=== PATIENT | female | born 1965 | race Caucasian/White ===

== ENCOUNTER 2022-06-20 14:35 | Outpatient (REF) | payer SELFPAY ==
[2022-06-20 14:52] LABS: MANUAL DIFF FLAG NO
[2022-06-20 15:35] LABS: Basophils Absolute Auto 0.1 X10*3/uL (0.0-0.2); Basophils Percent Auto 0.7 % (0-2); Eosinophils Absolute Auto 0.2 X10*3/uL (0.0-0.4); Eosinophils Percent Auto 1.7 % (0-4); Hematocrit 41.8 % (37.0-47.0); Hemoglobin 13.2 g/dl (12.0-16.0); Imm Gran Abs Auto 0.03 X10*3/uL (0.00-0.03); Imm Gran Pct Auto 0.2 % (0.0-0.4); Lymphocytes Absolute Auto 1.7 X10*3/uL (1.2-4.9); Lymphocytes Percent Auto 14.4 % (20-40); Mean Corpuscular HGB Conc 31.6 g/dl (31.0-35.0); Mean Corpuscular Hemoglobin 27.4 pg (27.0-33.0); Mean Corpuscular Volume 86.7 fL (80.0-98.0); Mean Platelet Volume 10.6 fL (9.4-12.3); Monocytes Absolute Auto 1.2 X10*3/uL (0.1-1.2); Neutrophils Absolute Auto 8.8 x10*3/uL (2.0-8.3); Platelet Count 305 X10*3/uL (160-400); Red Blood Count 4.82 X10*6/uL (4.20-5.50); Red Cell Distribution Width 13.2 % (11.0-16.0); White Blood Count 12.1 X10*3/uL (4.8-10.8)
[2022-06-20 15:50] LABS: Alanine Aminotransferase 21 U/L (0-31); Albumin Level 4.3 g/dL (3.5-5.0); Alkaline Phosphatase 108 U/L (39-117); Anion Gap 15 (12-20); Aspartate Amino Transferase 14 U/L (5-31); Bilirubin Total 0.7 mg/dL (0.0-1.0); Blood Urea Nitrogen 16 mg/dL (9-16); Calcium 9.4 mg/dL (8.4-10.2); Carbon Dioxide 27 mmol/L (22-29); Chloride 104 mmol/L (96-108); Cholesterol 154 mg/dL; Estimated Glomerular Filt Rate > 60; Glucose Random 142 mg/dL (60-115); HDL Cholesterol 52 mg/dL; LDL Cholesterol Calculated 87 mg/dl; Potassium 4.7 mmol/L (3.3-5.1); Sodium 141 mmol/L (135-145); Total Protein 7.5 g/dL (6.5-8.0); Triglycerides 79 mg/dL
[2022-06-20 16:12] LABS: Thyroid Stimulating Hormone 3.75 uIU/mL (0.32-4.0)
== END 2022-06-20 14:36 | disposition home or self-care (01) ==
LOC: HO.LAB 14:35
PROVIDERS: PCP Internal Medicine; Visit Provider Internal Medicine
DX: E66.01 Morbid (severe) obesity due to excess calories (principal); I10 Essential (primary) hypertension; L03.119 Cellulitis of unspecified part of limb; R60.0 Localized edema
CPT/HCPCS: 36415; 80053; 80061; 84443; 85025

== ENCOUNTER 2022-06-28 11:14 | Outpatient (REF) | payer MEDICAID, SELFPAY ==
--- NOTE | ~2022-06-28 | US_ITS ---
EXAMINATION: US VENOUS ULTRASOUND WITH DOPPLER LOWER EXTREMITY, RIGHT CLINICAL INFORMATION: Right leg pain. COMPARISON: None TECHNIQUE: Ultrasound of the deep veins is performed from the hip to the calf with compression sonography and color and pulse Doppler assessment. Spectral analysis with color-flow imaging is performed. FINDINGS: There is normal venous compression and respiratory variation and augmented flow. The visualized common femoral vein, superficial femoral vein, profunda femoral vein, popliteal vein, and the trifurcation region shows no evidence of deep venous thrombosis. There is no significant popliteal fossa cyst. Small prominent lymph nodes seen in the right groin. If the patient's symptoms persist, followup ultrasound in 5 days 7 days might be of value to exclude proximal propagation from a non-visualized calf vein. US/US venous duplex LE RT IMPRESSION: No DVT demonstrated in the right lower extremity. Small lymph nodes visualized in the right groin.
== END 2022-06-28 11:15 | disposition home or self-care (01) ==
LOC: HO.US 11:14
PROVIDERS: Visit Provider Internal Medicine
DX: R22.31 Localized swelling, mass and lump, right upper limb (principal)
CPT/HCPCS: 93971

== ENCOUNTER 2022-07-29 20:33 | Inpatient (IN) | payer OTHER, MEDICAID, SELFPAY ==
--- NOTE | ~2022-07-29 | US_ITS ---
EXAMINATION: US VENOUS ULTRASOUND WITH DOPPLER LOWER EXTREMITY, BILATERAL CLINICAL INFORMATION: Swelling and pain COMPARISON: Previous right leg venous ultrasound June 2022 TECHNIQUE: Ultrasound of the deep veins is performed from the hip to the calf with compression sonography and color and pulse Doppler assessment. Spectral analysis with color-flow imaging is performed. FINDINGS: RIGHT: There is normal venous compression and respiratory variation and augmented flow. The visualized common femoral vein, superficial femoral vein, profunda femoral vein, popliteal vein, and the posterior tibial region shows no evidence of deep venous thrombosis. The right peroneal veins are not well visualized. There is edema in the right lower leg/calf. There is a 4.6 x 2.4 x 3.1 cm العراقي's cyst. LEFT: There is normal venous compression and respiratory variation and augmented flow. The visualized common femoral vein, superficial femoral vein, profunda femoral vein, popliteal vein, and the trifurcation region shows no evidence of deep venous thrombosis. There is no significant popliteal fossa cyst. There is shotty bilateral inguinal lymphadenopathy.. US/US venous duplex LE BI IMPRESSION: No DVT demonstrated in the bilateral lower extremity. Right peroneal veins not well visualized. Small right العراقي's cyst. Right lower leg edema.
[2022-07-29 22:59] VITALS: BP 149/91; PULSE 113; RESP 20; TEMP 37.6; O2SAT 98; BMI 45.4
--- NOTE | 2022-07-30 01:04 | ED.GENADULT ---
HPI - General Adult General Chief complaint: General Medical Stated complaint: right leg swollen regina,burning ? clot Time Seen by Provider: 07/29/22 23:49 Mode of arrival: ambulatory Limitations: no limitations History of Present Illness HPI narrative: Patient's history of lymphedema history of recurrent cellulitis in her right lower extremity been on doxycycline Augmentin since 06/27 had a small wound few days ago got better but for last 24 hour noticed increased redness and pain with chills Onset (ago): month(s) Related Data Allergies Allergy/AdvReac Type Severity Reaction Status Date / Time No Known Allergies Allergy Verified 07/29/22 23:02 Review of Systems Review of Systems: Yes all other systems are reviewed and are negative [facility] Social History Social History Advance Directives: No Physical Exam ED Vital Signs: Vital Signs - 24 hr 07/29/22 22:59 Temperature 99.6 F Pulse Rate 113 H Respiratory Rate 20 Blood Pressure 149/91 H Pulse Oximetry 98 Oxygen Delivery Method Room Air BMI result Body Mass Index 45.4 Appearance: Alert. Oriented X3. No acute distress. Eyes: PERRLA, No Nystagmus ENT: Pharynx normal. Oral Mucosa moist Neck: Normal inspection. Neck supple. CVS: Normal heart rate and rhythm. Pulses normal. Respiratory: No respiratory distress. Equal air entry bilateral, no wheezing/rales/rhonchi Abdomen: Soft and nontender. Bowel sounds are present, no mass palpable, no CVA tenderness Skin: Skin warm and dry. Normal skin color. Normal skin turgor. Extremities: Right lower extremity swollen erythematous warm Vira sign negative. No calf tenderness Neuro: Oriented X 3. No motor deficit. No sensory deficit.No cerebellar signs , cranial nerves II-XII intact Extrem Other: Medical Decision Making MDM Narrative Medical decision making narrative: Patient recurrent cellulitis failed outpatient antibiotic treatment will admit patient for IV antibiotics vancomycin and Zosyn for now Lab Data Lab results reviewed: Yes I reviewed the patient's lab results. Result diagrams: 07/30/22 01:23 07/30/22 01:23 Labs: Lab Results 07/30/22 07/30/22 07/30/22 Range/Units 01:23 01:23 01:23 WBC 13.0 H (4.8-10.8) X10*3/uL RBC 5.02 (4.20-5.50) X10*6/uL Hgb 14.3 (12.0-16.0) g/dl Hct 43.1 (37.0-47.0) % MCV 85.9 (80.0-98.0) fL MCH 28.5 (27.0-33.0) pg MCHC 33.2 (31.0-35.0) g/dl RDW 13.5 (11.0-16.0) % Plt Count 249 (160-400) X10*3/uL MPV 10.7 (9.4-12.3) fL Immature Gran % (Auto) 0.4 (0.0-0.4) % Neut % (Auto) 86.7 H (45-73) % Lymph % (Auto) 6.7 L (20-40) % [place] % (Auto) 5.0 (2-11) % Eos % (Auto) 0.8 (0-4) % Baso % (Auto) 0.4 (0-2) % Lymph # (Auto) 0.9 L (1.2-4.9) X10*3/uL [place] # (Auto) 0.7 (0.1-1.2) X10*3/uL Eos # (Auto) 0.1 (0.0-0.4) X10*3/uL Baso # (Auto) 0.1 (0.0-0.2) X10*3/uL Abs Immat Gran (auto) 0.05 H (0.00-0.03) X10*3/uL Absolute Neuts (auto) 11.3 H (2.0-8.3) x10*3/uL Absolute Nucleated RBC 0.000 (0.0-0.012) X10*3/uL Nucleated RBC % (auto) 0.0 (0.0-0.2) /100WBC Sodium 136 (135-145) mmol/L Potassium 3.8 (3.3-5.1) mmol/L Chloride 97 (96-108) mmol/L Carbon Dioxide 27 (22-29) mmol/L Anion Gap 16 (12-20) BUN 26 H D (9-16) mg/dL Creatinine 1.23 (0.5-1.4) mg/dL Estim Creat Clear Calc 72.2 Estimated GFR 45 Random Glucose 266 H (60-115) mg/dL Lactic Acid 2.0 (0.5-2.0) mmol/L Calcium 9.2 (8.4-10.2) mg/dL Total Bilirubin 0.8 (0.0-1.0) mg/dL AST 17 (5-31) U/L ALT 24 (0-31) U/L Alkaline Phosphatase 106 (39-117) U/L Total Protein 7.4 (6.5-8.0) g/dL Albumin 4.3 (3.5-5.0) g/dL Discharge Plan Discharge Clinical Impression: Cellulitis of leg, right Patient Disposition: Admitted As Inpatient
[2022-07-30 01:28] LABS: MANUAL DIFF FLAG NO
[2022-07-30] MEDS: Acetaminophen 325 MG TABLET 975 MG PO (01:28)
[2022-07-30] MEDS: Piperacillin Sodium/Tazobactam 4.5 GM in 0.9 % Sodium Chloride 100 ML IV (01:29)
[2022-07-30] MEDS: Ketorolac Tromethamine 30 MG/ML VIAL IVPUSH (01:29)
[2022-07-30 01:32] LABS: Basophils Absolute Auto 0.1 X10*3/uL (0.0-0.2); Basophils Percent Auto 0.4 % (0-2); Eosinophils Absolute Auto 0.1 X10*3/uL (0.0-0.4); Eosinophils Percent Auto 0.8 % (0-4); Hematocrit 43.1 % (37.0-47.0); Hemoglobin 14.3 g/dl (12.0-16.0); Imm Gran Abs Auto 0.05 X10*3/uL (0.00-0.03); Imm Gran Pct Auto 0.4 % (0.0-0.4); Lymphocytes Absolute Auto 0.9 X10*3/uL (1.2-4.9); Lymphocytes Percent Auto 6.7 % (20-40); Mean Corpuscular HGB Conc 33.2 g/dl (31.0-35.0); Mean Corpuscular Hemoglobin 28.5 pg (27.0-33.0); Mean Corpuscular Volume 85.9 fL (80.0-98.0); Mean Platelet Volume 10.7 fL (9.4-12.3); Monocytes Absolute Auto 0.7 X10*3/uL (0.1-1.2); Neutrophils Absolute Auto 11.3 x10*3/uL (2.0-8.3); Neutrophils Percent Auto 86.7 % (45-73); Platelet Count 249 X10*3/uL (160-400); Red Blood Count 5.02 X10*6/uL (4.20-5.50); Red Cell Distribution Width 13.5 % (11.0-16.0)
[2022-07-30] MEDS: 0.9 % Sodium Chloride 1,000 ML 999 ML IV ×2 (01:41→05:47)
--- NOTE | 2022-07-30 01:45 | PC.NURSE ---
Assumed care of pt. at 130. Pt's right leg is swollen and red with 2 small healing wounds. Pt c/o severe pain. Medicated per MAR and abx iv therapy initiated. Pt. is resting in bed at this time.
[2022-07-30 01:50] LABS: Alanine Aminotransferase 24 U/L (0-31); Albumin Level 4.3 g/dL (3.5-5.0); Alkaline Phosphatase 106 U/L (39-117); Anion Gap 16 (12-20); Aspartate Amino Transferase 17 U/L (5-31); Bilirubin Total 0.8 mg/dL (0.0-1.0); Blood Urea Nitrogen 26 mg/dL (9-16); Calcium 9.2 mg/dL (8.4-10.2); Carbon Dioxide 27 mmol/L (22-29); Chloride 97 mmol/L (96-108); Creatinine Clr Calc Pharmacy 72.2; Estimated Glomerular Filt Rate 45; Glucose Random 266 mg/dL (60-115); Potassium 3.8 mmol/L (3.3-5.1); Sodium 136 mmol/L (135-145); Total Protein 7.4 g/dL (6.5-8.0)
--- NOTE | 2022-07-30 02:11 | PC.NURSE ---
Put pt on monitor for sepsis protocol
[2022-07-30 02:23] VITALS: BP 120/63; PULSE 108; RESP 28; TEMP 37.4; O2SAT 97
[2022-07-30] MEDS: HYDROmorphone HCl 0.5 MG/0.5 ML SYRINGE IVPUSH ×2 (02:42→05:51)
[2022-07-30 02:58] LABS: COVID-19 Test Negative (Negative)
--- NOTE | 2022-07-30 03:05 | PM.IMHP ---
History of Present Illness Date of Service: 07/30/22 Chief Complaint: right leg pain and swelling 57-year-old female with a past medical history of cellulitis presented to the hospital today with a chief complaint of right leg pain and swelling. Patient reports that for the past 2-3 when she has been having episodes of right leg cellulitis, has been on antibiotics, reports that she has been taking doxycycline and augmenting since June. for past 1 day she noticed increased pain and swelling of her right leg associated chills. Hence decided to come to the ER for further evaluation. Denies any falls or injury. Denies any chest pain or palpitations Denies any shortness of breath or dyspnea on exertion. Denies any cough or sputum production. Review of all other systems is negative except mentioned above ER course: Per ER team patient noted to have right leg warm, erythematous, tender concern for cellulitis- given IV vancomycin and Zosyn. Admitted to the hospital for further management PMFSH Medical History (Updated 08/02/22 @ 14:11 by Artis Rocha MD) Morbid obesity Social History Household Members: None Housing: House Patient Tobacco Use Status: Never used Tobacco service: No Current occupational status: employed Meds Allergies Allergy/AdvReac Type Severity Reaction Status Date / Time No Known Allergies Allergy Verified 07/29/22 23:02 Active Medications: Current Medications Acetaminophen (Acetaminophen 325 Mg Tablet) 650 mg PO Q6H PRN PRN Reason: Pain, Mild (Pain Scale 1-3) Enoxaparin Sodium (Enoxaparin Sodium 40 Mg/0.4 Ml Syringe) 40 mg SUBCUT Q24H REINA Hydromorphone HCl (Hydromorphone Hcl 0.5 Mg/0.5 Ml Syringe) 0.5 mg IVPUSH Q4H PRN; Protocol PRN Reason: Breakthrough Pain Last Admin: 07/30/22 02:42 Dose: 0.5 mg Vancomycin HCl (Vancomycin/Ns) 2,000 mg in 520 mls @ 260 mls/hr IV ONCE ONE Stop: 07/30/22 03:07 Last Admin: 07/30/22 02:51 Dose: 260 mls/hr Piperacillin Sod/Tazobactam (Sod 3.375 gm/ Sodium Chloride) 50 mls @ 100 mls/hr IV Q6H [facility] Melatonin (Melatonin 3 Mg Tablet) 6 mg PO BEDTIME PRN PRN Reason: Insomnia Pharmacy Consult (Consult Rx Vancomycin Dosing) 1 each MISCELLANE DAILY PRN PRN Reason: Consult order Pharmacy Consult (Consult Rx Vancomycin Dosing) 1 each MISCELLANE DAILY PRN PRN Reason: Consult order Senna (Sennosides 8.6 Mg Tablet) 17.2 mg PO BEDTIME PRN PRN Reason: Constipation Sodium Chloride (0.9 % Sodium Chloride Flush 3 Ml Syringe) 3 ml IVFLUSH QSHIFT [facility] Home Medications Medication Instructions Recorded Confirmed Last Taken Type doxycycline hyclate 100 mg tablet 1 tab PO BID 07/30/22 07/30/22 07/29/22 History furosemide 40 mg tablet 1 tab PO DAILY 07/30/22 07/30/22 07/29/22 History terbinafine HCl 1 % topical cream 1 appl topical BID 07/30/22 07/30/22 Unknown History terbinafine HCl 250 mg tablet 1 tab PO DAILY 07/30/22 07/30/22 Unknown History triamcinolone acetonide 0.5 % 1 appl topical BID 07/30/22 07/30/22 Unknown History topical cream Physical Exam Vital Signs and Narrative: Vital Signs: Last Vital Signs Temp 99.4 F 07/30/22 02:23 Pulse 108 H 07/30/22 02:23 Resp 28 H 07/30/22 02:23 BP 120/63 07/30/22 02:23 Pulse Ox 97 07/30/22 02:23 O2 Del Method 07/30/22 02:23 BMI result Body Mass Index 45.4 Gen: Appears be in no acute distress HEENT: NCAT, Moist mucosa. Pulmonary: Vesicular breath sounds, fair air entry CVS: Normal S1-S2 Abdomen: BS+, Soft, Nontender Extremities: Warm well perfused; right leg is warm tender erythematous as shown in the picture above. Neuro: Alert and awake. Results Labs CBC and Chem 7: 07/30/22 04:34 08/07/22 05:31 Labs: Laboratory Results - last 24 hr 07/30/22 07/30/22 07/30/22 01:23 01:23 01:23 MCV 85.9 MCH 28.5 MCHC 33.2 RDW 13.5 Plt Count 249 MPV 10.7 Immature Gran % (Auto) 0.4 Neut % (Auto) 86.7 H Lymph % (Auto) 6.7 L [place] % (Auto) 5.0 Eos % (Auto) 0.8 Baso % (Auto) 0.4 Lymph # (Auto) 0.9 L [place] # (Auto) 0.7 Eos # (Auto) 0.1 Baso # (Auto) 0.1 Abs Immat Gran (auto) 0.05 H Absolute Neuts (auto) 11.3 H Absolute Nucleated RBC 0.000 Nucleated RBC % (auto) 0.0 Anion Gap 16 Estim Creat Clear Calc 72.2 Estimated GFR 45 Random Glucose 266 H Lactic Acid 2.0 Calcium 9.2 Total Bilirubin 0.8 AST 17 ALT 24 Alkaline Phosphatase 106 Total Protein 7.4 Albumin 4.3 COVID-19 ([facility]) COVID-19 Clin Com 07/30/22 02:25 MCV MCH MCHC RDW Plt Count MPV Immature Gran % (Auto) Neut % (Auto) Lymph % (Auto) [place] % (Auto) Eos % (Auto) Baso % (Auto) Lymph # (Auto) [place] # (Auto) Eos # (Auto) Baso # (Auto) Abs Immat Gran (auto) Absolute Neuts (auto) Absolute Nucleated RBC Nucleated RBC % (auto) Anion Gap Estim Creat Clear Calc Estimated GFR Random Glucose Lactic Acid Calcium Total Bilirubin AST ALT Alkaline Phosphatase Total Protein Albumin COVID-19 ([facility]) Negative COVID-19 Clin Com See Note Assessment and Plan (1) Cellulitis of leg, right: Status: Acute Plan 57-year-old female with a past medical history of cellulitis presented to the hospital today with a chief complaint of right leg pain and swelling. noted to have right leg cellulitis. Admitted for further management. Right leg cellulitis: Patient has recurrent episodes of cellulitis. Will keep the patient on IV vancomycin and Zosyn Will obtain venous duplex and nonvascular ultrasound to rule out abscess Pain control Id consult for further recommendations DVT prophylaxis: Lovenox Code status: Full code Quality Stroke Does the patient have a stroke diagnosis?: No VTE Prior VTE?: No VTE Risk Level:: Medical - moderate - high VTE Device Contraindication: Treatment Not Indicated VTE Drug Contraindication: N/A - Med Ordered
--- NOTE | 2022-07-30 03:06 | PC.NURSE ---
Pt. in severe pain, moaning...medicated with dilaudid per JAN. Pt. had an O2 drop to 85 on RA. Positioned pt. in high fowlers and applied 2 liters of O2 via nasal cannula. O2 sats increased to 98 initially. Pt O2 dropped to 92, but comes right back up with a couple deep breaths.
[2022-07-30] MEDS: Enoxaparin Sodium 40 MG/0.4 ML SYRINGE SUBCUT (03:21)
[2022-07-30 04:55] LABS: Basophils Percent Auto 0.3 % (0-2); Eosinophils Percent Auto 0.3 % (0-4); Hemoglobin 12.7 g/dl (12.0-16.0); Imm Gran Abs Auto 0.03 X10*3/uL (0.00-0.03); Imm Gran Pct Auto 0.4 % (0.0-0.4); Lymphocytes Absolute Auto 0.5 X10*3/uL (1.2-4.9); Lymphocytes Percent Auto 6.4 % (20-40); MANUAL DIFF FLAG NO; Mean Corpuscular HGB Conc 32.6 g/dl (31.0-35.0); Mean Corpuscular Hemoglobin 27.9 pg (27.0-33.0); Mean Corpuscular Volume 85.7 fL (80.0-98.0); Mean Platelet Volume 10.5 fL (9.4-12.3); Monocytes Absolute Auto 0.5 X10*3/uL (0.1-1.2); Monocytes Percent Auto 6.1 % (2-11); Neutrophils Absolute Auto 6.9 x10*3/uL (2.0-8.3); Neutrophils Percent Auto 86.5 % (45-73); Platelet Count 219 X10*3/uL (160-400); Red Blood Count 4.55 X10*6/uL (4.20-5.50); Red Cell Distribution Width 13.4 % (11.0-16.0)
[2022-07-30 05:13] LABS: Anion Gap 15 (12-20); Blood Urea Nitrogen 23 mg/dL (9-16); Calcium 8.1 mg/dL (8.4-10.2); Carbon Dioxide 23 mmol/L (22-29); Chloride 102 mmol/L (96-108); Creatinine Clr Calc Pharmacy 83.7; Estimated Glomerular Filt Rate 54; Glucose Random 278 mg/dL (60-115); Potassium 3.1 mmol/L (3.3-5.1); Sodium 137 mmol/L (135-145)
--- NOTE | 2022-07-30 05:51 | PC.NURSE ---
Pt. complaining of severe pain. Per Dr. Golden, ok to give dilaudid a bit early.
[2022-07-30 06:06] VITALS: BP 99/54; PULSE 97; RESP 20; O2SAT 97
--- NOTE | 2022-07-30 06:08 | PC.NURSE ---
O2 sat decreased with dilaudid. 2L of O2 in place, encouraging deep breaths through the nose, O2 sats increase. Ranges 85-97
[2022-07-30] MEDS: Piperacillin Sodium/Tazobactam 3.375 GM in 0.9 % Sodium Chloride 50 ML IV (07:37)
[2022-07-30] MEDS: 0.9 % Sodium Chloride Flush 3 ML SYRINGE IVFLUSH ×2 (07:39→15:08)
--- NOTE | 2022-07-30 08:14 | PHA.PROG ---
Admission Date/Time: July 30, 2022 01:58 Indication: Right leg cellulitis Weight in k.542 kg Adjusted body weight in K.57 kg [place] body weight in K.6 kg Obesity Dosing Indication % IBW: 213% Serum Creatinine - Last 168 Hours 07/30/22 07/30/22 01:23 04:34 Creatinine 1.23 1.06 Estimated CrCl and GFR - Last 168 Hours 07/30/22 07/30/22 01:23 04:34 Estim Creat Clear Calc 72.2 83.7 Estimated GFR 45 54 Vancomycin Loading Dose: 2000 mg Current Vancomycin Dosing Regimen: 750 mg Q12H Date and Time for next Vancomycin Level to be drawn: 07/31 @ 1300 Pharmacist Comments on Vancomycin Plan: Patient is morbidly obese therefore requires careful monitor. Vancomycin level can be unpredicatable in obese patients. Patient received loading dosing vancomycin 2000 mg in the ED on 07/30 @ 0251. Maintenance dose 750 mg Q12H is scheduled to begin 07/30 @ 1500. Expected AUC 494 with a trough of 15.6. Trough to be drawn prior to 4th dose Pharmacy to monitor renal function daily. Magaly Kim, Vanessa Vancomycin dosing will take advantage of Micro[employer]ponder as a clinical decision support tool that uses Bayesian modeling to calculate individual patient's pharmacokinetic parameters and forecast the patient's drug concentration time course with the target goal AUC 24 range of 400 - 600 mg/L/hr.
[2022-07-30 08:19] VITALS: BP 92/45; PULSE 104; RESP 25; TEMP 37.1; O2SAT 3
--- NOTE | 2022-07-30 09:47 | PHA.MEDREC ---
Pharmacy Consult ? Medication Reconciliation Pharmacy has completed the medication reconciliation.
[2022-07-30 11:10] VITALS: BP 84/44; PULSE 95; RESP 21; TEMP 36.9
--- NOTE | 2022-07-30 12:46 | MHC.CM.PN ---
PATIENT REPORTS SHE LIVES ALONE AND HER PARENTS ARE CLOSE BY. 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
--- NOTE | 2022-07-30 14:40 | P.CNID_ITS ---
History of Present Illness Data of Consult Service Date: 07/30/22 Requesting physician: Satya Richmond Primary Care Provider: Vianca Martinez MD [facility] Reason for consult: right leg cellulitis,refractory to oral agents She presents to hospital with pain and swelling right leg. She has no fever or chills. She has lymphedema and had injury to leg in April and swelling and redness last two to three days. Review of Systems Review of Systems: Yes all other systems are reviewed and are negative [facility] Family History Family history: reviewed and not pertinent Social History Social History Advance Directives: No service: No Current occupational status: employed Meds Allergies Allergy/AdvReac Type Severity Reaction Status Date / Time No Known Allergies Allergy Verified 07/29/22 23:02 Active Medications: Current Medications Acetaminophen (Acetaminophen 325 Mg Tablet) 650 mg PO Q6H PRN PRN Reason: Pain, Mild (Pain Scale 1-3) Enoxaparin Sodium (Enoxaparin Sodium 40 Mg/0.4 Ml Syringe) 40 mg SUBCUT Q24H [facility]ENDING S[facility] TO [facility] Last Admin: 07/30/22 03:21 Dose: 40 mg Hydromorphone HCl (Hydromorphone Hcl 0.5 Mg/0.5 Ml Syringe) 0.5 mg IVPUSH Q4H PRN; Protocol PRN Reason: Breakthrough Pain Last Admin: 07/30/22 05:51 Dose: 0.5 mg Piperacillin Sod/Tazobactam (Sod 3.375 gm/ Sodium Chloride) 50 mls @ 100 mls/hr IV Q6H REINA Last Admin: 07/30/22 07:37 Dose: 100 mls/hr Vancomycin HCl 750 mg/ Sodium (Chloride) 265 mls @ 265 mls/hr IV Q12H [facility] Melatonin (Melatonin 3 Mg Tablet) 6 mg PO BEDTIME PRN PRN Reason: Insomnia Pharmacy Consult (Consult Rx Vancomycin Dosing) 1 each MISCELLANE DAILY PRN PRN Reason: Consult order Senna (Sennosides 8.6 Mg Tablet) 17.2 mg PO BEDTIME PRN PRN Reason: Constipation Sodium Chloride (0.9 % Sodium Chloride Flush 3 Ml Syringe) 3 ml IVFLUSH QSHIFT [facility]END[facility] Last Admin: 07/30/22 07:39 Dose: 3 ml Home Medications Medication Instructions Recorded Confirmed Last Taken Type doxycycline hyclate 100 mg tablet 1 tab PO BID 07/30/22 07/30/22 07/29/22 History furosemide 40 mg tablet 1 tab PO DAILY 07/30/22 07/30/22 07/29/22 History terbinafine HCl 1 % topical cream 1 appl topical BID 07/30/22 07/30/22 Unknown History terbinafine HCl 250 mg tablet 1 tab PO DAILY 07/30/22 07/30/22 Unknown History triamcinolone acetonide 0.5 % 1 appl topical BID 07/30/22 07/30/22 Unknown History topical cream Physical Exam Vital Signs: Vital Signs: Last Vital Signs Temp 98.4 F 07/30/22 11:10 Pulse 95 07/30/22 11:10 Resp 21 H 07/30/22 11:10 BP 84/44 L 07/30/22 11:10 Pulse Ox 3 L 07/30/22 08:19 O2 Del Method 07/30/22 11:10 O2 Flow Rate 3 07/30/22 11:10 BMI result Body Mass Index 45.4 Const: General: cooperative HEENT: Head: Yes normal to inspection Face and sinus: Yes normal facial exam Mouth: Normal oral and palatal mucosa present Teeth and gingiva: dentition normal Eyes: General: appearance normal, both eyes and all related structures Pupils: Equal, round and reactive pupils present Resp: Effort & Inspection: normal respiratory effort Cardio: Rate: regular rate Rhythm: regular rhythm GI: Palpation (GI): Soft to palpation and nontender : General: Yes no CVA tenderness Back/Spine/Pelvis: Back: no CVA tenderness Skin: General skin exam: no rashes or lesions noted Neuro: General: moves all extremities Cranial nerves: Yes Equal, round and reactive pupils present Extrem: Other: both lower extremities lymphedema,right leg hot and red distally with abrasion laterally Psych: Appearance: grossly normal Results Labs CBC & Chem 7: 07/30/22 04:34 07/30/22 04:34 Labs: Short CBC 07/30/22 07/30/22 Range/Units 01:23 04:34 WBC 13.0 H 8.0 (4.8-10.8) X10*3/uL Hgb 14.3 12.7 (12.0-16.0) g/dl Hct 43.1 39.0 (37.0-47.0) % Plt Count 249 219 (160-400) X10*3/uL BMP 07/30/22 07/30/22 01:23 04:34 Sodium 136 137 Potassium 3.8 3.1 L Chloride 97 102 Carbon Dioxide 27 23 BUN 26 H D 23 H Creatinine 1.23 1.06 Calcium 9.2 8.1 L D Liver Function 07/30/22 Range/Units 01:23 Total Bilirubin 0.8 (0.0-1.0) mg/dL AST 17 (5-31) U/L ALT 24 (0-31) U/L Alkaline Phosphatase 106 (39-117) U/L Albumin 4.3 (3.5-5.0) g/dL Assessment and Plan (1) Cellulitis of leg, right: Status: Acute She has probable strep infection with large bacterial burden and toxin Possible staph aureus as well. Plan Would continue Vancomycin Would change Zosyn to linezolid and observe Possible po linezolid as outpatient (Lancing effect with decreasing bacterial burden and toxin)
--- NOTE | 2022-07-30 15:28 | PM.EVENT ---
Event Note Date of Service: 07/30/22 Event Note: seen/examined, admission note from this morning reviewed, meds, labs, imaging reviewed. has extensive cellulitis of right leg. BRENNA ruiz per ID recommendation addition of Zyvox.
[2022-07-30] MEDS: Linezolid/D5W 600 MG/300 ML PIGGYBACK 300 MG IV (15:59)
[2022-07-30 18:37] VITALS: BP 93/56; PULSE 113; RESP 28; TEMP 36.9; O2SAT 99
[2022-07-30] MEDS: Acetaminophen 325 MG TABLET 650 MG PO (19:48)
[2022-07-30] MEDS: cefTRIAXone sodium 1 GM in 0.9 % Sodium Chloride 50 ML IV (19:49)
[2022-07-30 22:23] VITALS: BP 101/53; PULSE 110; RESP 29; O2SAT 96
[2022-07-31] MEDS: 0.9 % Sodium Chloride Flush 3 ML SYRINGE IVFLUSH ×2 (01:22→08:36)
[2022-07-31] MEDS: Enoxaparin Sodium 40 MG/0.4 ML SYRINGE SUBCUT (02:26)
[2022-07-31 02:27] VITALS: RESP 16
[2022-07-31] MEDS: HYDROmorphone HCl 0.5 MG/0.5 ML SYRINGE IVPUSH ×5 (02:27→20:22)
[2022-07-31] MEDS: Linezolid/D5W 600 MG/300 ML PIGGYBACK 300 MG IV ×2 (03:02→15:01)
[2022-07-31 05:20] LABS: Creatinine Clr Calc Pharmacy 57.3; Estimated Glomerular Filt Rate 35
[2022-07-31 06:00] VITALS: BP 104/50; PULSE 116; RESP 22; O2SAT 95
[2022-07-31 08:39] VITALS: BP 117/68; PULSE 113; RESP 24; TEMP 37.9; O2SAT 99
--- NOTE | 2022-07-31 09:06 | HO.PM.IMPN ---
Subjective Subjective Date of Service: 08/01/22 Interval History: f/u on sepsis, gram negative analia bacteremia and cellulitis of the right leg interval history: 2 sets of blood cultures growing gram negative analia, leg remains very erythematous and Cr is trending up. Review of Systems no fever pain in the right leg Physical Exam Vital Signs: Vital Signs: Last Vital Signs Temp 100.2 F 07/31/22 08:39 Pulse 113 H 07/31/22 08:39 Resp 24 H 07/31/22 08:39 BP 117/68 07/31/22 08:39 Pulse Ox 99 07/31/22 08:39 O2 Del Method 07/31/22 08:39 O2 Flow Rate 3 07/30/22 11:10 BMI result Body Mass Index 45.4 Const: Other: General: AO X 3, no acute distress Resp: CTA bilateral CVS: S1,S2,RRR GI: +BS, NT, no distention Skin: No rash Neuro: motor grossly intact Psych: appropriate affect Objective Data Active Medications Acetaminophen (Acetaminophen 325 Mg Tablet) 650 mg PO Q6H PRN PRN Reason: Pain, Mild (Pain Scale 1-3) Last Admin: 07/30/22 19:48 Dose: 650 mg Documented By: CANDACE Enoxaparin Sodium (Enoxaparin Sodium 40 Mg/0.4 Ml Syringe) 40 mg SUBCUT Q24H REINA Last Admin: 07/31/22 02:26 Dose: 40 mg Documented By: CANDACE Hydromorphone HCl (Hydromorphone Hcl 0.5 Mg/0.5 Ml Syringe) 0.5 mg IVPUSH Q4H PRN; Protocol PRN Reason: Breakthrough Pain Last Admin: 07/31/22 08:36 Dose: 0.5 mg Documented By: TATIANNA Linezolid (Zyvox/D5w) 600 mg in 300 mls @ 300 mls/hr IV Q12H COUNT INCLUDES THE [facility] Last Infusion: 07/31/22 08:38 Dose: 0 mls/hr Documented By: TATIANNA Ceftriaxone Sodium 1 gm/ (Sodium Chloride) 50 mls @ 100 mls/hr IV Q24H COUNT INCLUDES THE [facility] Last Infusion: 07/31/22 08:38 Dose: 0 mls/hr Documented By: TATIANNA Melatonin (Melatonin 3 Mg Tablet) 6 mg PO BEDTIME PRN PRN Reason: Insomnia Pharmacy Consult (Consult Rx Vancomycin Dosing) 1 each MISCELLANE DAILY PRN PRN Reason: Consult order Senna (Sennosides 8.6 Mg Tablet) 17.2 mg PO BEDTIME PRN PRN Reason: Constipation Sodium Chloride (0.9 % Sodium Chloride Flush 3 Ml Syringe) 3 ml IVFLUSH QSHIFT RE[facility] Last Admin: 07/31/22 08:36 Dose: 3 ml Documented By: TATIANNA Labs CBC & Chem 7: 07/30/22 04:34 08/01/22 05:52 Labs: Laboratory Results - last 24 hr 07/31/22 04:22 Estim Creat Clear Calc 57.3 Estimated GFR 35 Microbiology Microbiology Results: Microbiology 07/30/22 01:23 Blood Culture - Preliminary Blood - Venous Prelim: GNR Gram Stain only 07/30/22 01:33 Blood Culture - Preliminary Blood - Venous Prelim: GNR Gram Stain only Assessment and Plan (1) Cellulitis of leg, right: Status: Acute (2) Gram negative sepsis: Status: Acute Plan 57-year-old female with a past medical history of cellulitis presented to the hospital today with a chief complaint of right leg pain and swelling and found to have right leg cellulitis and gram negative analia sepsis #Gram negative analia sepsis and bacteremia #Right leg Celulitis -started on Vanco 07/30 and dc'd same day by ID -sensitivity pending -added ceftriaxone on 07/30, change to Cefepime for Pseudomonas coverage -continue Zyvos for gram poistive coverage -ID following -venoud duplex no dvt #Morbid obesity--contributing health issues, weight loss advised #YARELI--etiology unclear, possible pre renal state-- IV fluid and follow closely, and if worsening nephrology consult DVT prophylaxis:? Lovenox Code status:? Full code Quality Stroke Does the patient have a stroke diagnosis?: No VTE Prior VTE?: No VTE Risk Level:: Medical - moderate - high VTE Device Contraindication: Treatment Not Indicated VTE Drug Contraindication: N/A - Med Ordered
[2022-07-31 10:54] VITALS: BP 119/51; PULSE 112; RESP 20; TEMP 37.1; O2SAT 99
[2022-07-31] MEDS: cefEPime HCl 1 GM in 0.9 % Sodium Chloride 50 ML IV ×2 (11:15→23:29)
[2022-07-31] MEDS: Sodium Chloride 0.45 % 1,000 ML 100 ML IVCONT ×2 (11:26→20:26)
[2022-07-31] MEDS: Acetaminophen 325 MG TABLET 650 MG PO (11:29)
--- NOTE | 2022-07-31 13:49 | PC.NURSE ---
Pt unable to ambulate. Purewick in place.
[2022-07-31 13:58] LABS: Vancomycin Trough 4.7 mcg/mL (10.0-20.0)
[2022-07-31 17:34] VITALS: RESP 16
[2022-07-31] MEDS: cefTRIAXone sodium 1 GM in 0.9 % Sodium Chloride 50 ML IV (17:35)
--- NOTE | 2022-07-31 17:50 | PC.NURSE ---
1745-pt c/o RLE pain, rating 7/10. Lower leg is swollen, red, hot, and wheeping. Pedal pulse +1. gave IV dilaudid 0.5 mg. iv antibiotics infusing. pt ate 10% of supper. pt stated, she does not have an appetitie bc of pain.
--- NOTE | 2022-07-31 18:27 | PC.NURSE ---
1810-IV leaking. all connections are tight. 1814-ER admission discharge rn called to see about new IV site. 1819-report called to JYOTI bryan on med/surg
[2022-07-31 19:49] VITALS: BP 110/63; PULSE 104; RESP 18; TEMP 36.8; O2SAT 95
[2022-07-31 19:57] VITALS: BMI 45.7
[2022-07-31] MEDS: Triamcinolone Acet 0.5 % Cream 15 GM TUBE 1 APPL TOPICAL (23:29)
[2022-07-31] MEDS: Clotrimazole 1 % Cream 15 GM TUBE 1 APPL TOPICAL (23:30)
[2022-08-01] VITALS (7 sets, daily range): BP systolic 114–140; BP diastolic 58–71; PULSE 87–105; RESP 15–18; TEMP 36.2–37.6; O2SAT 92–94
--- NOTE | 2022-08-01 00:21 | PC.NURSE ---
at 1930 Patient was complaining of pain No pain meds due. notified. gave ok to give PRN med early.
[2022-08-01] MEDS: Linezolid/D5W 600 MG/300 ML PIGGYBACK 300 MG IV ×2 (02:31→14:33)
[2022-08-01] MEDS: HYDROmorphone HCl 0.5 MG/0.5 ML SYRINGE IVPUSH ×4 (02:31→21:02)
[2022-08-01] MEDS: Enoxaparin Sodium 40 MG/0.4 ML SYRINGE SUBCUT (02:31)
[2022-08-01 07:10] LABS: Anion Gap 20 (12-20); Blood Urea Nitrogen 44 mg/dL (9-16); Calcium 8.3 mg/dL (8.4-10.2); Carbon Dioxide 22 mmol/L (22-29); Chloride 94 mmol/L (96-108); Creatinine Clr Calc Pharmacy 41.7; Estimated Glomerular Filt Rate 24; Glucose Random 267 mg/dL (60-115); Potassium 4.2 mmol/L (3.3-5.1); Sodium 132 mmol/L (135-145)
[2022-08-01] MEDS: Clotrimazole 1 % Cream 15 GM TUBE 1 APPL TOPICAL ×2 (07:25→21:12)
[2022-08-01] MEDS: Triamcinolone Acet 0.5 % Cream 15 GM TUBE 1 APPL TOPICAL ×2 (07:25→21:12)
[2022-08-01] MEDS: cefEPime HCl 1 GM in 0.9 % Sodium Chloride 50 ML IV ×2 (10:34→22:46)
--- NOTE | 2022-08-01 11:19 | HO.PM.IMPN ---
Subjective Subjective Date of Service: 08/01/22 Interval History: f/u on sepsis, gram negative analia bacteremia and cellulitis of the right leg interval history: persistent pain and redness in the right leg, no fever, difficult ambulation Review of Systems no fever pain in the leg Physical Exam Vital Signs: Vital Signs: Last Vital Signs Temp 99.6 F 08/01/22 07:26 Pulse 105 H 08/01/22 07:26 Resp 17 08/01/22 04:00 BP 118/63 08/01/22 07:26 Pulse Ox 93 08/01/22 07:26 O2 Del Method 08/01/22 07:26 O2 Flow Rate 3 08/01/22 04:00 BMI result Body Mass Index 45.7 Const: Other: General: AO X 3, no acute distress Resp: CTA bilateral CVS: S1,S2,RRR GI: +BS, NT, no distention Skin:swollen and redness persists on right leg Neuro: motor grossly intact Psych: appropriate affect Objective Data Active Medications Acetaminophen (Acetaminophen 325 Mg Tablet) 650 mg PO Q6H PRN PRN Reason: Pain, Mild (Pain Scale 1-3) Last Admin: 07/31/22 11:29 Dose: 650 mg Documented By: MORRIS Clotrimazole (Clotrimazole 1 % Cream 15 Gm Tube) 1 appl TOPICAL BID [facility] Last Admin: 08/01/22 07:25 Dose: 1 appl Documented By: ERIC Enoxaparin Sodium (Enoxaparin Sodium 40 Mg/0.4 Ml Syringe) 40 mg SUBCUT Q24H [facility] Last Admin: 08/01/22 02:31 Dose: 40 mg Documented By: SANTOSH Hydromorphone HCl (Hydromorphone Hcl 0.5 Mg/0.5 Ml Syringe) 0.5 mg IVPUSH Q4H PRN; Protocol PRN Reason: Breakthrough Pain Last Admin: 08/01/22 07:24 Dose: 0.5 mg Documented By: ERIC Linezolid (Zyvox/D5w) 600 mg in 300 mls @ 300 mls/hr IV Q12H [facility] Last Infusion: 08/01/22 04:43 Dose: 0 mls/hr Documented By: SANTOSH Ceftriaxone Sodium 1 gm/ (Sodium Chloride) 50 mls @ 100 mls/hr IV Q24H [facility] Last Infusion: 07/31/22 18:25 Dose: 0 mls/hr Documented By: JOSE Cefepime HCl 1 gm/ Sodium (Chloride) 50 mls @ 100 mls/hr IV Q12H [facility] Last Admin: 08/01/22 10:34 Dose: 100 mls/hr Documented By: ERIC Sodium Chloride (Sodium Chloride 0.45 %) 1,000 mls @ 100 mls/hr IVCONT .Q10H [facility] Last Infusion: 08/01/22 07:44 Dose: 0 mls/hr Documented By: ERIC Melatonin (Melatonin 3 Mg Tablet) 6 mg PO BEDTIME PRN PRN Reason: Insomnia Pharmacy Consult (Consult Rx Vancomycin Dosing) 1 each MISCELLANE DAILY PRN PRN Reason: Consult order Senna (Sennosides 8.6 Mg Tablet) 17.2 mg PO BEDTIME PRN PRN Reason: Constipation Sodium Chloride (0.9 % Sodium Chloride Flush 3 Ml Syringe) 3 ml IVFLUSH QSHIFT [facility] Last Admin: 08/01/22 07:25 Dose: Not Given Documented By: ERIC Non-Admin Reason: IV Running Triamcinolone Acetonide (Triamcinolone Acet 0.5 % Cream 15 Gm Tube) 1 appl TOPICAL BID [facility]; Protocol Last Admin: 08/01/22 07:25 Dose: 1 appl Documented By: ERIC Labs CBC & Chem 7: 07/30/22 04:34 08/01/22 05:52 Labs: Laboratory Results - last 24 hr 07/31/22 08/01/22 13:21 05:52 Anion Gap 20 Estim Creat Clear Calc 41.7 Estimated GFR 24 Random Glucose 267 H Calcium 8.3 L Vancomycin Trough 4.7 L Microbiology Microbiology Results: Microbiology 07/30/22 01:33 Blood Culture - Final Blood - Venous Pseudomonas aeruginosa 07/30/22 01:23 Blood Culture - Final Blood - Venous Pseudomonas aeruginosa Assessment and Plan (1) Bacteremia due to Pseudomonas: Status: Acute (2) Cellulitis of leg, right: Status: Acute (3) Morbid obesity: Status: Acute Plan 57-year-old female with a past medical history of cellulitis presented to the hospital today with a chief complaint of right leg pain and swelling and found to have right leg cellulitis and gram negative analia sepsis #Pseudomonas sepsis and bacteremia #Right leg Celulitis likely from above -started on Vanco 07/30 and dc'd same day by ID -added ceftriaxone on 07/30, change to Cefepime (D2) for Pseudomonas coverage the next -continue Zyvos for gram poistive coverage and further discuss with ID -ID following -venoud duplex no dvt #Morbid obesity--contributing health issues, weight loss advised #YARELI--etiology unclear, possible pre renal state-- IV fluid and follow closely, and nephrology consult DVT prophylaxis:? Lovenox Code status:? Full code Quality Stroke Does the patient have a stroke diagnosis?: No VTE Prior VTE?: No VTE Risk Level:: Medical - moderate - high VTE Device Contraindication: Treatment Not Indicated VTE Drug Contraindication: N/A - Med Ordered
[2022-08-01] MEDS: Sodium Chloride 0.45 % 1,000 ML 100 ML IVCONT (11:27)
[2022-08-01 12:19] LABS: Appearance Urine Cloudy; Color Urine Yellow; Glucose Urine UA 250 mg/dL (Negative); Leukocyte Esterase Urine Negative (Negative); Nitrite Urine Negative (Negative); PH 5.5 (5.0-9.0); Specific Gravity - Urine 1.015 (1.005-1.025); UMIC TRIGGER UA YES; Urine Blood Negative (Negative); Urine Ketones Negative (Negative); Urine Protein 30 (1+) mg/dL (Neg-Trace)
[2022-08-01 12:25] LABS: Bacteria Urine None Seen (None Seen); RBC Urine 0-2 /HPF (0-2); Squamous Epithelial Cell Urine 0-2 /HPF (0-2); WBC Urine 0-5 /HPF (0-5)
[2022-08-01 12:44] LABS: HBS Num1 0.59 mIU/mL (0-7.99); HBc Num1 0.11 S/CO (0.00-0.79); HBsAGNum1 0.21 S/CO (0.00-0.99); Hepatitis B Core Antibody Nonreactive (Nonreactive); Hepatitis B Surface Antigen Negative (Negative); ~HepC Num1 0.07 S/CO (0.00-0.79); ~Hepatitis B Surface Antibody NONREACTIVE (Nonreactive); ~Hepatitis C Antibody Nonreactive (Nonreactive)
[2022-08-01 13:40] LABS: EOS Counted 0 CELLS; EOS QC POS YES; EOS Stain Quality OK YES; WBC, Counted 0 CELLS
[2022-08-01 13:56] LABS: Creatinine Urine 80.92 mg/dL; Total Protein Urine Random 46 mg/dL (<12)
[2022-08-01] MEDS: Docusate Sodium 100 MG CAPSULE PO (15:47)
[2022-08-01] MEDS: Melatonin 3 MG TABLET 6 MG PO (21:03)
[2022-08-01] MEDS: 0.9 % Sodium Chloride Flush 3 ML SYRINGE IVFLUSH (23:55)
[2022-08-02] MEDS: HYDROmorphone HCl 0.5 MG/0.5 ML SYRINGE IVPUSH ×5 (02:37→22:15)
[2022-08-02] MEDS: Linezolid/D5W 600 MG/300 ML PIGGYBACK 300 MG IV ×2 (02:38→14:23)
[2022-08-02] MEDS: Enoxaparin Sodium 40 MG/0.4 ML SYRINGE SUBCUT (02:38)
[2022-08-02 03:20] VITALS: BP 137/64; PULSE 94; RESP 17; TEMP 36.6; O2SAT 92
[2022-08-02] MEDS: Sodium Chloride 0.45 % 1,000 ML 100 ML IVCONT ×2 (06:16→15:53)
[2022-08-02 07:02] LABS: Creatinine Clr Calc Pharmacy 59.8; Estimated Glomerular Filt Rate 36
[2022-08-02] MEDS: Docusate Sodium 100 MG CAPSULE PO (07:55)
[2022-08-02] MEDS: Triamcinolone Acet 0.5 % Cream 15 GM TUBE 1 APPL TOPICAL ×2 (07:56→22:24)
[2022-08-02 07:57] VITALS: BP 118/68; PULSE 93; RESP 14; TEMP 37; O2SAT 92
[2022-08-02] MEDS: Clotrimazole 1 % Cream 15 GM TUBE 1 APPL TOPICAL ×2 (07:57→22:24)
--- NOTE | 2022-08-02 08:30 | CONS_ITS ---
DATE OF SERVICE: 08/01/2022 REASON FOR CONSULTATION: I was asked to see the patient to assist in evaluation and management of patient's acute kidney injury as reflected by BUN and creatinine of 44 and 2.14 today, whereas her baseline creatinine seems to be in the 0.9 to 1.2 range. HISTORY OF PRESENT ILLNESS: In summary, she is a 57-year-old female with a history of cellulitis involving the right leg, was treated as an outpatient about a month ago and the patient tells me that it completely resolved and then she went on vacation and came back from vacation and starting in the mid week, the redness in her right leg and swelling recurred. Apparent she had been on doxycycline and Augmentin last month. It is unclear when she actually came off this medication. She denies any trauma or falling episodes. She had an ultrasound in June and then again 2 days ago, which again showed no DVT in the right leg. She denies any fever, sweats, or chills. The patient states she has not seen a doctor for quite some time and now is being seen by Dr. Martinez. She is on no prescription medications, although she tells me she has been taking quite a bit of Advil over the past several weeks. ALLERGIES: SHE HAS NO KNOWN DRUG ALLERGIES. SOCIAL HISTORY: She is a nonsmoker, nondrinker. No illicit drug use. REVIEW OF SYSTEMS: As noted above. PHYSICAL EXAMINATION: VITAL SIGNS: Blood pressure of 118/60 with a heart rate of 100, temperature 99.6. HEAD: Atraumatic and normocephalic. NECK: Supple. MOUTH: Mucous membranes moist. LUNGS: Clear. CARDIAC: Regular rate and rhythm. ABDOMEN: Obese, soft, nontender. No CVA tenderness. EXTREMITIES: Right leg is quite swollen. Pictures are in the chart as red from the mid owens down with an excoriated area as well. LABORATORY DATA: Show hemoglobin 12.7, hematocrit 39, white blood cell count 8.0. Sodium 132, potassium 4.2, chloride 94, bicarb 22, BUN 44, creatinine 2.14, blood sugar 267, calcium 8.3. Creatinine going back, it has been ranging of 0.9-1.2 range. IMPRESSION: ACUTE KIDNEY INJURY IN A 57-YEAR-OLD ON NSAIDS WITH THE RECURRENT CELLULITIS. 1. Acute kidney injury. Differential diagnosis, the cause of acute kidney injury include the followin. Infectious associated glomerulonephritis. The patient has a postinfectious glomerulonephritis, which can occur after the infection or at the time of infection with a glomerulonephritis. 3. NSAID-associated kidney injury such as acute interstitial nephritis. 4. Less likely would be obstructive uropathy as she has no symptoms suggestive of urinary retention. 5. Multifactorial acute tubular necrosis with tubular injuries aside from the infection would also be in the differential. 6. Antibiotic-associated acute interstitial nephritis would also be a potential culprit. 7. Hyponatremia. This is in part due to elevated blood sugar. 8. New onset diabetes. 9. Heavy NSAID use. SUGGESTIONS: At this time include urinalysis, spot urine studies. Obtain C3 and C4, which can be depressed in infectious associated GN. We will check an ANCA as there are case reports of infectious-associated ANCA. We will check a serum immunofixation as there are cases of infectious-associated IgA, crescentic GN, which would be in the differential as well. We will follow the patient closely with the team. MD ORLY Delarosa/JOE / [id number]
[2022-08-02] MEDS: cefEPime HCl 1 GM in 0.9 % Sodium Chloride 50 ML IV (10:15)
[2022-08-02 11:12] VITALS: BP 141/70; PULSE 91; RESP 15; TEMP 37.2; O2SAT 96
--- NOTE | 2022-08-02 12:36 | HO.PM.IMPN ---
Subjective Subjective Date of Service: 08/03/22 Interval History: f/u on sepsis, gram negative analia bacteremia and cellulitis of the right leg interval history: still has pain in the leg and diffulty getting around, persistent pain in the leg and swelling unchanged Review of Systems no fever pain in the leg Physical Exam Vital Signs: Vital Signs: Last Vital Signs Temp 98.9 F 08/02/22 11:12 Pulse 91 08/02/22 11:12 Resp 15 08/02/22 11:12 BP 141/70 H 08/02/22 11:12 Pulse Ox 96 08/02/22 11:12 O2 Del Method 08/02/22 11:12 O2 Flow Rate 3 08/01/22 04:00 BMI result Body Mass Index 45.7 Const: Other: General: AO X 3, no acute distress Resp: CTA bilateral CVS: S1,S2,RRR GI: +BS, NT, no distention Skin:swollen and redness persists on right leg Neuro: motor grossly intact Psych: appropriate affect Objective Data Active Medications Acetaminophen (Acetaminophen 325 Mg Tablet) 650 mg PO Q6H PRN PRN Reason: Pain, Mild (Pain Scale 1-3) Last Admin: 07/31/22 11:29 Dose: 650 mg Documented By: MORRIS Clotrimazole (Clotrimazole 1 % Cream 15 Gm Tube) 1 appl TOPICAL BID [facility] Last Admin: 08/02/22 07:57 Dose: 1 appl Documented By: ANGELIQUE Docusate Sodium (Docusate Sodium 100 Mg Capsule) 100 mg PO DAILY [facility] Last Admin: 08/02/22 07:55 Dose: 100 mg Documented By: ANGELIQUE Enoxaparin Sodium (Enoxaparin Sodium 40 Mg/0.4 Ml Syringe) 40 mg SUBCUT Q24H [facility] Last Admin: 08/02/22 02:38 Dose: 40 mg Documented By: HANK Hydromorphone HCl (Hydromorphone Hcl 0.5 Mg/0.5 Ml Syringe) 0.5 mg IVPUSH Q4H PRN; Protocol PRN Reason: Breakthrough Pain Last Admin: 08/02/22 12:20 Dose: 0.5 mg Documented By: ANGELIQUE Linezolid (Zyvox/D5w) 600 mg in 300 mls @ 300 mls/hr IV Q12H [facility] Last Infusion: 08/02/22 04:51 Dose: 0 mls/hr Documented By: HANK Cefepime HCl 1 gm/ Sodium (Chloride) 50 mls @ 100 mls/hr IV Q12H [facility] Last Infusion: 08/02/22 10:47 Dose: 0 mls/hr Documented By: ANGELIQUE Sodium Chloride (Sodium Chloride 0.45 %) 1,000 mls @ 100 mls/hr IVCONT .Q10H [facility] Last Admin: 08/02/22 06:16 Dose: 100 mls/hr Documented By: HANK Melatonin (Melatonin 3 Mg Tablet) 6 mg PO BEDTIME PRN PRN Reason: Insomnia Last Admin: 08/01/22 21:03 Dose: 6 mg Documented By: HANK Pharmacy Consult (Consult Rx Vancomycin Dosing) 1 each MISCELLANE DAILY PRN PRN Reason: Consult order Senna (Sennosides 8.6 Mg Tablet) 17.2 mg PO BEDTIME PRN PRN Reason: Constipation Sodium Chloride (0.9 % Sodium Chloride Flush 3 Ml Syringe) 3 ml IVFLUSH QSHIFT [facility] Last Admin: 08/02/22 07:55 Dose: Not Given Documented By: ANGELIQUE Non-Admin Reason: IV Running Triamcinolone Acetonide (Triamcinolone Acet 0.5 % Cream 15 Gm Tube) 1 appl TOPICAL BID [facility]; Protocol Last Admin: 08/02/22 07:56 Dose: 1 appl Documented By: ANGELIQUE Labs CBC & Chem 7: 07/30/22 04:34 08/03/22 05:45 Labs: Laboratory Results - last 24 hr 08/01/22 08/01/22 08/01/22 11:43 11:56 11:56 Estim Creat Clear Calc Estimated GFR Urine Eosinophils % 0.0 U Random Total Protein 46 H Urine Creatinine 80.92 Hep Bs Antigen Negative Hep Bs Antibody NONREACTIVE Hep B Core Total Ab Nonreactive Hepatitis C Ab (EIA) Nonreactive 08/02/22 05:38 Estim Creat Clear Calc 59.8 Estimated GFR 36 Urine Eosinophils % U Random Total Protein Urine Creatinine Hep Bs Antigen Hep Bs Antibody Hep B Core Total Ab Hepatitis C Ab (EIA) Assessment and Plan (1) YARELI (acute kidney injury): Status: Acute (2) Morbid obesity: Status: Acute (3) Bacteremia due to Pseudomonas: Status: Acute Plan 57-year-old female with a past medical history of cellulitis presented to the hospital today with a chief complaint of right leg pain and swelling and found to have right leg cellulitis and gram negative analia sepsis #Pseudomonas sepsis and bacteremia #Right leg Celulitis likely from above -started on Vanco 07/30 and dc'd same day by ID -added ceftriaxone on 07/30, change to Cefepime (D3) for Pseudomonas coverage the next -continue Zyvos for gram poistive coverage and further discuss with ID -ID following -venoud duplex no dvt #Morbid obesity--contributing health issues, weight loss advised #YARELI--etiology unclear, possible pre renal state--improving, IVF DVT prophylaxis:? Lovenox Code status:? Full code need for inaptient: Sepsis, bacteremia d/t Pseudomonas, extensive cellulitis of the leg not yet optimal for home therapy, Quality Stroke Does the patient have a stroke diagnosis?: No VTE Prior VTE?: No VTE Risk Level:: Medical - moderate - high VTE Device Contraindication: Treatment Not Indicated VTE Drug Contraindication: N/A - Med Ordered
--- NOTE | 2022-08-02 14:10 | PM.PNNEP ---
Subjective Subjective Date of Service: 08/02/22 Interval history: f/u for YARELI Physical Exam Vital Signs: Vital Signs: Last Vital Signs Temp 98.9 F 08/02/22 11:12 Pulse 91 08/02/22 11:12 Resp 15 08/02/22 11:12 BP 141/70 H 08/02/22 11:12 Pulse Ox 96 08/02/22 11:12 O2 Del Method 08/02/22 11:12 O2 Flow Rate 3 08/01/22 04:00 BMI result Body Mass Index 45.7 Const: Other: General: AO X 3, no acute distress Resp: CTA bilateral CVS: S1,S2,RRR GI: +BS, NT, no distention Skin:swollen and redness persists on right leg Neuro: motor grossly intact Psych: appropriate affect Objective Data Labs CBC & Chem 7: 07/30/22 04:34 08/02/22 05:38 Labs: Laboratory Results - last 24 hr 08/02/22 05:38 Creatinine 1.49 H Estim Creat Clear Calc 59.8 Estimated GFR 36 Microbiology Microbiology Results: Microbiology 07/30/22 01:33 Blood - Venous Blood Culture - Final Pseudomonas aeruginosa 07/30/22 01:23 Blood - Venous Blood Culture - Final Pseudomonas aeruginosa Procedures Date of Service Date of Service: 08/02/22 Assessment & Plan Assessment and plan (1) YARELI (acute kidney injury): Status: Acute Plan ACUTE KIDNEY INJURY IN A 57-YEAR-OLD ON NSAIDS WITH THE RECURRENT CELLULITIS. 1. Acute kidney injury.? Differential diagnosis, the cause of acute kidney YARELI due to renal hypoperfusion / Prerenal state Doubt : Infectious associated glomerulonephritis.?/ AIN 2. Hyponatremia.? This is in part due to elevated blood sugar. 3. New onset diabetes. 4. Heavy NSAID use. ? SUGGESTIONS:? IV Hydration x 24 hrs - MAy need to change to NS F/u serologies Avoid NSAID Check Cr in AM Antibiotics as medical team We will follow the patient closely with the team. Time Spent With Patient Time: Total time spent is greater than 50% in coordination of care (as documented) at patient's floor/unit and/or counseling patient: Progress Note: Quality Stroke Does the patient have a stroke diagnosis?: No
[2022-08-02 15:10] VITALS: BP 118/56; PULSE 96; RESP 18; TEMP 37.5; O2SAT 93
[2022-08-02 19:31] VITALS: BP 116/59; PULSE 99; RESP 18; TEMP 36.8; O2SAT 90
[2022-08-02 23:33] VITALS: BP 138/74; PULSE 71; RESP 18; TEMP 37.6; O2SAT 96
[2022-08-03] MEDS: cefEPime HCl 1 GM in 0.9 % Sodium Chloride 50 ML IV ×3 (00:02→22:22)
[2022-08-03] MEDS: Enoxaparin Sodium 40 MG/0.4 ML SYRINGE SUBCUT (02:30)
[2022-08-03] MEDS: Linezolid/D5W 600 MG/300 ML PIGGYBACK 300 MG IV ×2 (02:30→14:12)
[2022-08-03] MEDS: Sodium Chloride 0.45 % 1,000 ML 100 ML IVCONT (02:31)
[2022-08-03 03:20] VITALS: BP 133/70; PULSE 95; RESP 18; TEMP 37.1; O2SAT 94
[2022-08-03 06:28] LABS: Creatinine Clr Calc Pharmacy 72.5; Estimated Glomerular Filt Rate 45
[2022-08-03 07:28] VITALS: BP 141/82; PULSE 87; RESP 18; TEMP 36.7; O2SAT 96
--- NOTE | 2022-08-03 08:45 | HO.PM.IMPN ---
Subjective Subjective Date of Service: 08/03/22 Interval History: f/u on sepsis, gram negative analia bacteremia and cellulitis of the right leg interval history:Persistent pain in the leg, and difficulty walking, Review of Systems no fever pain in the leg Physical Exam Vital Signs: Vital Signs: Last Vital Signs Temp 98.1 F 08/03/22 07:28 Pulse 87 08/03/22 07:28 Resp 18 08/03/22 07:28 BP 141/82 H 08/03/22 07:28 Pulse Ox 96 08/03/22 07:28 O2 Del Method 08/03/22 07:28 O2 Flow Rate 2 08/03/22 07:28 BMI result Body Mass Index 45.7 Const: Other: General: AO X 3, no acute distress Resp: CTA bilateral CVS: S1,S2,RRR GI: +BS, NT, no distention Skin:swollen and redness persists on right leg--no signficant change Neuro: motor grossly intact Psych: appropriate affect General: cooperative Objective Data Active Medications Acetaminophen (Acetaminophen 325 Mg Tablet) 650 mg PO Q6H PRN PRN Reason: Pain, Mild (Pain Scale 1-3) Last Admin: 07/31/22 11:29 Dose: 650 mg Documented By: MORRIS Clotrimazole (Clotrimazole 1 % Cream 15 Gm Tube) 1 appl TOPICAL BID [facility] Last Admin: 08/02/22 22:24 Dose: 1 appl Documented By: THAO Docusate Sodium (Docusate Sodium 100 Mg Capsule) 100 mg PO DAILY [facility] Last Admin: 08/02/22 07:55 Dose: 100 mg Documented By: ANGELIQUE Enoxaparin Sodium (Enoxaparin Sodium 40 Mg/0.4 Ml Syringe) 40 mg SUBCUT Q24H [facility] Last Admin: 08/03/22 02:30 Dose: 40 mg Documented By: THAO Hydromorphone HCl (Hydromorphone Hcl 0.5 Mg/0.5 Ml Syringe) 0.5 mg IVPUSH Q4H PRN; Protocol PRN Reason: Breakthrough Pain Last Admin: 08/02/22 22:15 Dose: 0.5 mg Documented By: THAO Linezolid (Zyvox/D5w) 600 mg in 300 mls @ 300 mls/hr IV Q12H [facility] Last Infusion: 08/03/22 04:53 Dose: 0 mls/hr Documented By: THAO Cefepime HCl 1 gm/ Sodium (Chloride) 50 mls @ 100 mls/hr IV Q12H [facility] Last Infusion: 08/03/22 00:39 Dose: 0 mls/hr Documented By: HANK Sodium Chloride (Sodium Chloride 0.45 %) 1,000 mls @ 100 mls/hr IVCONT .Q10H [facility] Last Admin: 08/03/22 02:31 Dose: 100 mls/hr Documented By: THAO Melatonin (Melatonin 3 Mg Tablet) 6 mg PO BEDTIME PRN PRN Reason: Insomnia Last Admin: 08/01/22 21:03 Dose: 6 mg Documented By: HANK Pharmacy Consult (Consult Rx Vancomycin Dosing) 1 each MISCELLANE DAILY PRN PRN Reason: Consult order Senna (Sennosides 8.6 Mg Tablet) 17.2 mg PO BEDTIME PRN PRN Reason: Constipation Sodium Chloride (0.9 % Sodium Chloride Flush 3 Ml Syringe) 3 ml IVFLUSH QSHIFT [facility] Last Admin: 08/03/22 00:03 Dose: Not Given Documented By: THAO Non-Admin Reason: IV Running Triamcinolone Acetonide (Triamcinolone Acet 0.5 % Cream 15 Gm Tube) 1 appl TOPICAL BID [facility]; Protocol Last Admin: 08/02/22 22:24 Dose: 1 appl Documented By: THAO Labs CBC & Chem 7: 07/30/22 04:34 08/03/22 05:45 Labs: Laboratory Results - last 24 hr 08/03/22 05:45 Estim Creat Clear Calc 72.5 Estimated GFR 45 Assessment and Plan (1) YARELI (acute kidney injury): Status: Acute (2) Morbid obesity: Status: Acute (3) Bacteremia due to Pseudomonas: Status: Acute Plan 57-year-old female with a past medical history of cellulitis presented to the hospital today with a chief complaint of right leg pain and swelling and found to have right leg cellulitis and gram negative analia sepsis #Pseudomonas sepsis and bacteremia #Right leg Celulitis likely from above -started on Vanco 07/30 and dc'd same day by ID -added ceftriaxone on 07/30, change to Cefepime on 07/31 (D4) for Pseudomonas coverage the next -continue Zyvos for gram poistive coverage and further change to be determined by ID -venoud duplex no dvt #Morbid obesity--contributing health issues, weight loss advised #YARELI--etiology unclear, possible pre renal state--has resolved Cr alek to 12.09 DVT prophylaxis:? Lovenox Code status:? Full code need for inaptient: Sepsis, bacteremia d/t Pseudomonas, extensive cellulitis of the leg not yet optimal for home therapy, unable to walk Quality Stroke Does the patient have a stroke diagnosis?: No VTE Prior VTE?: No VTE Risk Level:: Medical - moderate - high VTE Device Contraindication: Treatment Not Indicated VTE Drug Contraindication: N/A - Med Ordered
[2022-08-03] MEDS: Clotrimazole 1 % Cream 15 GM TUBE 1 APPL TOPICAL ×2 (08:55→20:28)
[2022-08-03] MEDS: Docusate Sodium 100 MG CAPSULE PO (08:55)
[2022-08-03] MEDS: Triamcinolone Acet 0.5 % Cream 15 GM TUBE 1 APPL TOPICAL ×2 (08:55→20:22)
[2022-08-03] MEDS: HYDROmorphone HCl 0.5 MG/0.5 ML SYRINGE IVPUSH ×4 (09:43→22:56)
--- NOTE | 2022-08-03 09:43 | MHC.CM.PN ---
PER REVIEW OF PROGRESS NOTES, PATIENT NOT YET MEDICALLY READY FOR DISCHARGE. POSSIBLE HOME WITH SERVICES. CASE MANAGEMENT FOLLOWING FOR DC PLANNING NEEDS
[2022-08-03 11:38] VITALS: BP 116/65; PULSE 95; RESP 18; TEMP 36.7; O2SAT 95
[2022-08-03 15:05] VITALS: BP 134/67; PULSE 84; RESP 19; TEMP 36.8; O2SAT 94
[2022-08-03 20:00] VITALS: BP 147/67; PULSE 80; RESP 18; TEMP 36.4; O2SAT 95
[2022-08-03] MEDS: 0.9 % Sodium Chloride Flush 3 ML SYRINGE IVFLUSH (22:23)
[2022-08-03 23:55] VITALS: BP 173/83; PULSE 77; RESP 17; TEMP 36.1; O2SAT 95
[2022-08-04] MEDS: Linezolid/D5W 600 MG/300 ML PIGGYBACK 300 MG IV ×2 (02:28→14:40)
[2022-08-04] MEDS: Enoxaparin Sodium 40 MG/0.4 ML SYRINGE SUBCUT (02:29)
[2022-08-04 04:00] VITALS: BP 138/77; PULSE 90; RESP 17; TEMP 36.4; O2SAT 97
[2022-08-04] MEDS: HYDROmorphone HCl 0.5 MG/0.5 ML SYRINGE IVPUSH ×3 (04:29→19:56)
[2022-08-04 06:39] LABS: Creatinine Clr Calc Pharmacy 86.5; Estimated Glomerular Filt Rate 55
[2022-08-04 08:00] VITALS: BP 133/73; PULSE 95; RESP 18; TEMP 36.5; O2SAT 96
[2022-08-04] MEDS: Clotrimazole 1 % Cream 15 GM TUBE 1 APPL TOPICAL ×2 (08:34→19:53)
[2022-08-04] MEDS: Docusate Sodium 100 MG CAPSULE PO (08:34)
[2022-08-04] MEDS: 0.9 % Sodium Chloride Flush 3 ML SYRINGE IVFLUSH (08:34)
[2022-08-04] MEDS: Triamcinolone Acet 0.5 % Cream 15 GM TUBE 1 APPL TOPICAL ×2 (08:34→19:53)
--- NOTE | 2022-08-04 09:52 | HO.PM.IMPN ---
Subjective Subjective Date of Service: 08/04/22 Interval History: f/u on sepsis, gram negative analia bacteremia and cellulitis of the right leg interval history:Persistent pain in the leg, and difficulty walking and peristent redness Review of Systems no fever pain in the leg Physical Exam Vital Signs: Vital Signs: Last Vital Signs Temp 97.7 F 08/04/22 08:00 Pulse 95 08/04/22 08:00 Resp 18 08/04/22 08:00 BP 133/73 08/04/22 08:00 Pulse Ox 96 08/04/22 08:00 O2 Del Method 08/04/22 08:00 O2 Flow Rate 0.5 08/04/22 08:00 BMI result Body Mass Index 45.7 Const: Other: General: AO X 3, no acute distress Resp: CTA bilateral CVS: S1,S2,RRR GI: +BS, NT, no distention Skin: redness seem more prominent Neuro: motor grossly intact Psych: appropriate affect Objective Data Active Medications Acetaminophen (Acetaminophen 325 Mg Tablet) 650 mg PO Q6H PRN PRN Reason: Pain, Mild (Pain Scale 1-3) Last Admin: 07/31/22 11:29 Dose: 650 mg Documented By: MORRIS Clotrimazole (Clotrimazole 1 % Cream 15 Gm Tube) 1 appl TOPICAL BID [facility] Last Admin: 08/04/22 08:34 Dose: 1 appl Documented By: BARBI Docusate Sodium (Docusate Sodium 100 Mg Capsule) 100 mg PO DAILY [facility] Last Admin: 08/04/22 08:34 Dose: 100 mg Documented By: BARIB Enoxaparin Sodium (Enoxaparin Sodium 40 Mg/0.4 Ml Syringe) 40 mg SUBCUT Q24H [facility] Last Admin: 08/04/22 02:29 Dose: 40 mg Documented By: THAO Hydromorphone HCl (Hydromorphone Hcl 0.5 Mg/0.5 Ml Syringe) 0.5 mg IVPUSH Q4H PRN; Protocol PRN Reason: Breakthrough Pain Last Admin: 08/04/22 04:29 Dose: 0.5 mg Documented By: THAO Linezolid (Zyvox/D5w) 600 mg in 300 mls @ 300 mls/hr IV Q12H [facility] Last Infusion: 08/04/22 03:33 Dose: 0 mls/hr Documented By: THAO Cefepime HCl 1 gm/ Sodium (Chloride) 50 mls @ 100 mls/hr IV Q12H [facility] Last Infusion: 08/03/22 23:00 Dose: 0 mls/hr Documented By: THAO Melatonin (Melatonin 3 Mg Tablet) 6 mg PO BEDTIME PRN PRN Reason: Insomnia Last Admin: 08/01/22 21:03 Dose: 6 mg Documented By: HANK Pharmacy Consult (Consult Rx Vancomycin Dosing) 1 each MISCELLANE DAILY PRN PRN Reason: Consult order Senna (Sennosides 8.6 Mg Tablet) 17.2 mg PO BEDTIME PRN PRN Reason: Constipation Sodium Chloride (0.9 % Sodium Chloride Flush 3 Ml Syringe) 3 ml IVFLUSH QSHIFT [facility] Last Admin: 08/04/22 08:34 Dose: 3 ml Documented By: BARBI Triamcinolone Acetonide (Triamcinolone Acet 0.5 % Cream 15 Gm Tube) 1 appl TOPICAL BID [facility]; Protocol Last Admin: 08/04/22 08:34 Dose: 1 appl Documented By: BARBI Labs CBC & Chem 7: 07/30/22 04:34 08/04/22 05:51 Labs: Laboratory Results - last 24 hr 08/04/22 05:51 Estim Creat Clear Calc 86.5 Estimated GFR 55 Assessment and Plan (1) YARELI (acute kidney injury): Status: Acute (2) Morbid obesity: Status: Acute (3) Bacteremia due to Pseudomonas: Status: Acute Plan 57-year-old female with a past medical history of cellulitis presented to the hospital today with a chief complaint of right leg pain and swelling and found to have right leg cellulitis and gram negative analia sepsis #Pseudomonas sepsis and bacteremia #Right leg Celulitis likely from above -started on Vanco 07/30 and dc'd same day by ID -added ceftriaxone on 07/30, change to Cefepime on 07/31 (D5) for Pseudomonas coverage the next -continue Zyvos for gram poistive coverage, ID to reassess and make further recommendation -venoud duplex no dvt #Morbid obesity--contributing health issues, weight loss advised #YARELI--etiology unclear, possible pre renal state--has resolved Cr alek to 1.03. Stop IVF DVT prophylaxis:? Lovenox Code status:? Full code need for inaptient: Sepsis, bacteremia d/t Pseudomonas, extensive cellulitis of the leg not yet optimal for home therapy, unable to walk Quality Stroke Does the patient have a stroke diagnosis?: No VTE Prior VTE?: No VTE Risk Level:: Medical - moderate - high VTE Device Contraindication: Treatment Not Indicated VTE Drug Contraindication: N/A - Med Ordered
[2022-08-04] MEDS: cefEPime HCl 1 GM in 0.9 % Sodium Chloride 50 ML IV ×2 (11:05→22:27)
[2022-08-04 11:53] VITALS: BP 171/88; PULSE 92; RESP 18; TEMP 36.8; O2SAT 94
[2022-08-04] MEDS: Acetaminophen 325 MG TABLET 650 MG PO ×2 (13:34→22:27)
[2022-08-04 16:33] VITALS: BP 143/80; PULSE 93; RESP 14; TEMP 36.5; O2SAT 94
[2022-08-04 20:00] VITALS: BP 139/67; PULSE 92; RESP 17; TEMP 36.4; O2SAT 97
[2022-08-04 23:26] VITALS: BP 149/68; PULSE 81; RESP 18; TEMP 36.8; O2SAT 94
[2022-08-05] MEDS: Enoxaparin Sodium 40 MG/0.4 ML SYRINGE SUBCUT (02:51)
[2022-08-05] MEDS: Linezolid/D5W 600 MG/300 ML PIGGYBACK 300 MG IV ×2 (02:52→14:20)
[2022-08-05] MEDS: HYDROmorphone HCl 0.5 MG/0.5 ML SYRINGE IVPUSH ×2 (02:52→09:07)
[2022-08-05 03:16] VITALS: BP 157/74; PULSE 84; RESP 18; TEMP 36.9; O2SAT 91
[2022-08-05 06:45] LABS: Creatinine Clr Calc Pharmacy 103.7; Estimated Glomerular Filt Rate > 60
[2022-08-05 07:26] VITALS: BP 145/70; PULSE 88; RESP 18; TEMP 36.1; O2SAT 97
[2022-08-05] MEDS: Docusate Sodium 100 MG CAPSULE PO (09:10)
[2022-08-05] MEDS: Triamcinolone Acet 0.5 % Cream 15 GM TUBE 1 APPL TOPICAL ×2 (09:11→20:50)
[2022-08-05] MEDS: 0.9 % Sodium Chloride Flush 3 ML SYRINGE IVFLUSH (09:11)
[2022-08-05] MEDS: Clotrimazole 1 % Cream 15 GM TUBE 1 APPL TOPICAL ×2 (09:12→20:50)
--- NOTE | 2022-08-05 10:45 | P.PNIM_ITS ---
Subjective Subjective Date of Service: 08/05/22 Interval History: being followed for right lower extremity cellulitis, patient crying due to pain right lower extremity denies fever chills, denies nausea vomiting tolerating diet, no other acute issues overnight. 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 Neck no JVD. CVS regular rate rhythm, Respiratory lungs clear to auscultation, no respiratory distress, no wheeze, no rhonchi. Gastrointestinal abdomen soft, nontender, bowel sounds audible, no guarding , no rigidity. Extremities significant swelling/ redness right lower extremity involving entire left leg Neuro nonfocal ,speech clear. psych appropriate affect Objective Data Active Medications Acetaminophen (Acetaminophen 325 Mg Tablet) 650 mg PO Q6H PRN PRN Reason: Pain, Mild (Pain Scale 1-3) Last Admin: 08/04/22 22:27 Dose: 650 mg Documented By: SEAN Clotrimazole (Clotrimazole 1 % Cream 15 Gm Tube) 1 appl TOPICAL BID [facility] Last Admin: 08/05/22 09:12 Dose: 1 appl Documented By: SARAH Docusate Sodium (Docusate Sodium 100 Mg Capsule) 100 mg PO DAILY [facility] Last Admin: 08/05/22 09:10 Dose: 100 mg Documented By: SARAH Enoxaparin Sodium (Enoxaparin Sodium 40 Mg/0.4 Ml Syringe) 40 mg SUBCUT Q24H [facility] Last Admin: 08/05/22 02:51 Dose: 40 mg Documented By: SEAN Hydromorphone HCl (Hydromorphone Hcl 0.5 Mg/0.5 Ml Syringe) 0.5 mg IVPUSH Q4H PRN; Protocol PRN Reason: Breakthrough Pain Last Admin: 08/05/22 09:07 Dose: 0.5 mg Documented By: SARAH Linezolid (Zyvox/D5w) 600 mg in 300 mls @ 300 mls/hr IV Q12H [facility] Last Infusion: 08/05/22 05:07 Dose: 0 mls/hr Documented By: SEAN Cefepime HCl 2 gm/ Sodium (Chloride) 50 mls @ 100 mls/hr IV Q12H [facility] Melatonin (Melatonin 3 Mg Tablet) 6 mg PO BEDTIME PRN PRN Reason: Insomnia Last Admin: 08/01/22 21:03 Dose: 6 mg Documented By: HANK Pharmacy Consult (Consult Rx Vancomycin Dosing) 1 each MISCELLANE DAILY PRN PRN Reason: Consult order Senna (Sennosides 8.6 Mg Tablet) 17.2 mg PO BEDTIME PRN PRN Reason: Constipation Sodium Chloride (0.9 % Sodium Chloride Flush 3 Ml Syringe) 3 ml IVFLUSH QSHIFT [facility] Last Admin: 08/05/22 09:11 Dose: 3 ml Documented By: SARAH Triamcinolone Acetonide (Triamcinolone Acet 0.5 % Cream 15 Gm Tube) 1 appl TOPICAL BID [facility]; Protocol Last Admin: 08/05/22 09:11 Dose: 1 appl Documented By: SARAH Labs CBC & Chem 7: 07/30/22 04:34 08/05/22 05:23 Labs: Laboratory Results - last 24 hr 08/05/22 05:23 Estim Creat Clear Calc 103.7 Estimated GFR > 60 Assessment and Plan (1) YARELI (acute kidney injury): Status: Acute (2) Morbid obesity: Status: Acute (3) Bacteremia due to Pseudomonas: Status: Acute Plan 57-year-old female with a past medical history of cellulitis presented to the hospital today with a chief complaint of right leg pain and swelling and found to have right leg cellulitis and gram negative analia sepsis # right lower extremity cellulitis due to Pseudomonas sepsis resolved, blood cultures x 2 grew Pseudomonas , WBC normalized, no fevers -started on Vanco 07/30 and dc'd same day by ID -added ceftriaxone on 07/30, change to Cefepime on 07/31 (D6) for Pseudomonas coverage -continue Zyvos for gram poistive coverage -venoud duplex no dvt since noted to have persistent redness swelling and pain will increase dose of severe pain to 2 g b.i.d. since renal function improved will also discuss antibiotic coverage with ID. continue IV Dilaudid for pain will add oxycodone as needed #Morbid obesity--contributing health issues, weight loss advised #YARELI--etiology unclear, possible pre renal state--has resolved Cr alek to 1.03. Stop IVF DVT prophylaxis:? Lovenox Code status:? Full code need for inaptient: Sepsis, bacteremia d/t Pseudomonas, extensive cellulitis of the leg not yet optimal for home therapy, unable to walk. Quality Stroke Does the patient have a stroke diagnosis?: No VTE Prior VTE?: No VTE Risk Level:: Medical - moderate - high VTE Device Contraindication: Treatment Not Indicated VTE Drug Contraindication: N/A - Med Ordered
[2022-08-05 11:17] LABS: Complement C3 139 mg/dL (83-193)
[2022-08-05 11:19] VITALS: BP 145/68; PULSE 98; RESP 20; TEMP 36.6; O2SAT 93
[2022-08-05] MEDS: oxyCODONE HCl Immed Release 5 MG TABLET PO ×3 (11:59→20:50)
[2022-08-05] MEDS: cefEPime HCl 2 GM in 0.9 % Sodium Chloride 50 ML IV (12:41)
[2022-08-05 15:41] LABS: Myeloperoxidase Antibody <1.0 AI; Proteinase 3 PR3 Antibodies <1.0 AI
[2022-08-05 16:00] VITALS: BP 133/64; PULSE 87; RESP 18; TEMP 36.8; O2SAT 92
[2022-08-05] MEDS: Acetaminophen 325 MG TABLET 650 MG PO (16:10)
[2022-08-05 20:00] VITALS: BP 139/65; PULSE 103; RESP 18; TEMP 36.6; O2SAT 97
[2022-08-05] MEDS: Melatonin 3 MG TABLET 6 MG PO (20:50)
[2022-08-05 23:46] VITALS: BP 136/73; PULSE 93; RESP 17; TEMP 36.7; O2SAT 95
[2022-08-06] MEDS: Enoxaparin Sodium 40 MG/0.4 ML SYRINGE SUBCUT (00:52)
[2022-08-06] MEDS: 0.9 % Sodium Chloride Flush 3 ML SYRINGE IVFLUSH ×3 (00:52→15:50)
[2022-08-06] MEDS: cefEPime HCl 2 GM in 0.9 % Sodium Chloride 50 ML IV (00:52)
[2022-08-06] MEDS: oxyCODONE HCl Immed Release 5 MG TABLET PO ×2 (00:54→06:11)
[2022-08-06] MEDS: Linezolid/D5W 600 MG/300 ML PIGGYBACK 300 MG IV ×2 (03:02→14:41)
[2022-08-06 04:00] VITALS: BP 142/69; PULSE 86; RESP 17; TEMP 36.1; O2SAT 98
[2022-08-06 06:53] LABS: Creatinine Clr Calc Pharmacy 104.9; Estimated Glomerular Filt Rate > 60
[2022-08-06 07:48] VITALS: BP 175/87; PULSE 70; RESP 18; TEMP 36.3; O2SAT 91
[2022-08-06] MEDS: levoFLOXacin/D5W 750 MG/150 ML PIGGYBACK 100 MG IV (08:50)
[2022-08-06] MEDS: Acetaminophen 325 MG TABLET 650 MG PO (09:27)
[2022-08-06] MEDS: Docusate Sodium 100 MG CAPSULE PO (09:28)
[2022-08-06] MEDS: Clotrimazole 1 % Cream 15 GM TUBE 1 APPL TOPICAL ×2 (09:28→21:05)
[2022-08-06] MEDS: Triamcinolone Acet 0.5 % Cream 15 GM TUBE 1 APPL TOPICAL ×2 (09:28→21:54)
[2022-08-06] MEDS: HYDROmorphone HCl 0.5 MG/0.5 ML SYRINGE 1 MG IVPUSH ×3 (09:35→21:01)
[2022-08-06 12:00] VITALS: BP 134/71; PULSE 91; RESP 18; TEMP 36.1; O2SAT 93
--- NOTE | 2022-08-06 13:47 | HO.PM.IMPN ---
Subjective Subjective Date of Service: 08/06/22 Interval History: feeling a little better less right lower extremity discomfort, denies fever chills, tolerating diet with no nausea vomiting abdominal pain or diarrhea no other acute overnight events. 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 awake alert x3, no acute distress.? Neck no JVD. CVS? regular rate rhythm, Respiratory lungs clear to auscultation, no respiratory distress, no wheeze, no rhonchi. Gastrointestinal abdomen soft, nontender, bowel sounds audible, no guarding , no rigidity. Extremities? significant swelling/ redness right lower extremity involving entire rt. leg Neuro nonfocal ,speech clear. psych appropriate affect Objective Data Active Medications Acetaminophen (Acetaminophen 325 Mg Tablet) 650 mg PO Q6H PRN PRN Reason: Pain, Mild (Pain Scale 1-3) Last Admin: 08/06/22 09:27 Dose: 650 mg Documented By: REBECCA Clotrimazole (Clotrimazole 1 % Cream 15 Gm Tube) 1 appl TOPICAL BID [facility] Last Admin: 08/06/22 09:28 Dose: 1 appl Documented By: REBECCA Docusate Sodium (Docusate Sodium 100 Mg Capsule) 100 mg PO DAILY [facility] Last Admin: 08/06/22 09:28 Dose: 100 mg Documented By: REBECCA Enoxaparin Sodium (Enoxaparin Sodium 40 Mg/0.4 Ml Syringe) 40 mg SUBCUT Q24H [facility] Last Admin: 08/06/22 00:52 Dose: 40 mg Documented By: SANTOSH Hydromorphone HCl (Hydromorphone Hcl 0.5 Mg/0.5 Ml Syringe) 1 mg IVPUSH Q4H PRN; Protocol PRN Reason: Breakthrough Pain Last Admin: 08/06/22 09:35 Dose: 1 mg Documented By: SARAH Linezolid (Zyvox/D5w) 600 mg in 300 mls @ 300 mls/hr IV Q12H [facility] Last Infusion: 08/06/22 06:16 Dose: 0 mls/hr Documented By: SANTOSH Levofloxacin (Levaquin) 750 mg in 150 mls @ 100 mls/hr IV Q24H [facility] Last Infusion: 08/06/22 10:25 Dose: 100 mls/hr Documented By: SARAH Melatonin (Melatonin 3 Mg Tablet) 6 mg PO BEDTIME PRN PRN Reason: Insomnia Last Admin: 08/05/22 20:50 Dose: 6 mg Documented By: PERRY Oxycodone HCl (Oxycodone Hcl Immed Release 5 Mg Tablet) 5 mg PO Q4H PRN PRN Reason: Pain, Moderate (Pain Scale 4-6 Last Admin: 08/06/22 06:11 Dose: 5 mg Documented By: SANTOSH Pharmacy Consult (Consult Rx Vancomycin Dosing) 1 each MISCELLANE DAILY PRN PRN Reason: Consult order Senna (Sennosides 8.6 Mg Tablet) 17.2 mg PO BEDTIME PRN PRN Reason: Constipation Sodium Chloride (0.9 % Sodium Chloride Flush 3 Ml Syringe) 3 ml IVFLUSH QSHIFT [facility] Last Admin: 08/06/22 08:49 Dose: 3 ml Documented By: SARAH Triamcinolone Acetonide (Triamcinolone Acet 0.5 % Cream 15 Gm Tube) 1 appl TOPICAL BID [facility]; Protocol Last Admin: 08/06/22 09:28 Dose: 1 appl Documented By: REBECCA Labs CBC & Chem 7: 07/30/22 04:34 08/06/22 05:25 Labs: Laboratory Results - last 24 hr 08/01/22 08/06/22 11:43 05:25 Estim Creat Clear Calc 104.9 Estimated GFR > 60 Proteinase 3 (PR3) Ab <1.0 Myeloperoxidase Ab <1.0 Assessment and Plan (1) YARELI (acute kidney injury): Status: Acute (2) Morbid obesity: Status: Acute (3) Bacteremia due to Pseudomonas: Status: Acute Plan 57-year-old female with a past medical history of cellulitis presented to the hospital today with a chief complaint of right leg pain and swelling and found to have right leg cellulitis and gram negative analia sepsis # right lower extremity cellulitis due to Pseudomonas sepsis resolved, blood cultures x 2 grew Pseudomonas , WBC normalized, no fevers on iv Cefepime day 6 due to persistent redness and swelling id recommended Levaquin 750 mg daily for better penetration for Pseudomonas coverage -continue Zyvos for gram poistive coverage -venoud duplex no dvt for pain will continue as needed oxycodone and increased dose of IV Dilaudid to 1 mg q.4 hours as needed keep leg elevated follow clinical course #Morbid obesity--contributing health issues, weight loss advised #YARELI--etiology unclear, possible pre renal state--has resolved Cr alek to 1.03.s/p ivf DVT prophylaxis:? Lovenox Code status:? Full code need for inaptient: Sepsis, bacteremia d/t Pseudomonas, on IV antibiotics for extensive cellulitis of the leg not yet optimal for home therapy, unable to walk. Quality Stroke Does the patient have a stroke diagnosis?: No VTE Prior VTE?: No VTE Risk Level:: Medical - moderate - high VTE Device Contraindication: Treatment Not Indicated VTE Drug Contraindication: N/A - Med Ordered
[2022-08-06 15:43] VITALS: BP 172/72; PULSE 78; RESP 17; TEMP 36.6; O2SAT 94
[2022-08-06 19:44] VITALS: BP 139/67; PULSE 92; RESP 18; TEMP 36.3; O2SAT 98
[2022-08-06 23:39] VITALS: BP 144/72; PULSE 87; RESP 19; TEMP 35.9; O2SAT 98
[2022-08-07] MEDS: 0.9 % Sodium Chloride Flush 3 ML SYRINGE IVFLUSH ×4 (00:36→20:27)
[2022-08-07] MEDS: HYDROmorphone HCl 0.5 MG/0.5 ML SYRINGE 1 MG IVPUSH ×4 (01:26→17:33)
[2022-08-07] MEDS: Enoxaparin Sodium 40 MG/0.4 ML SYRINGE SUBCUT (01:27)
[2022-08-07] MEDS: Linezolid/D5W 600 MG/300 ML PIGGYBACK 300 MG IV ×2 (02:53→14:50)
[2022-08-07 03:34] VITALS: BP 154/65; PULSE 78; RESP 20; TEMP 36; O2SAT 98
[2022-08-07] MEDS: oxyCODONE HCl Immed Release 5 MG TABLET PO ×3 (06:34→20:26)
[2022-08-07 06:49] VITALS: BP 152/70; PULSE 70; RESP 18; TEMP 36.6; O2SAT 95
[2022-08-07 06:51] LABS: Anion Gap 18 (12-20); Blood Urea Nitrogen 21 mg/dL (9-16); Calcium 8.3 mg/dL (8.4-10.2); Carbon Dioxide 28 mmol/L (22-29); Chloride 98 mmol/L (96-108); Creatinine Clr Calc Pharmacy 104.9; Estimated Glomerular Filt Rate > 60; Glucose Random 298 mg/dL (60-115); Sodium 140 mmol/L (135-145)
[2022-08-07] MEDS: levoFLOXacin/D5W 750 MG/150 ML PIGGYBACK 100 MG IV (09:15)
[2022-08-07] MEDS: Docusate Sodium 100 MG CAPSULE PO (09:16)
[2022-08-07] MEDS: Clotrimazole 1 % Cream 15 GM TUBE 1 APPL TOPICAL ×2 (09:16→20:26)
[2022-08-07] MEDS: Triamcinolone Acet 0.5 % Cream 15 GM TUBE 1 APPL TOPICAL ×2 (09:16→20:26)
[2022-08-07 11:05] VITALS: BP 130/66; PULSE 98; RESP 18; TEMP 36.1; O2SAT 95
[2022-08-07] MEDS: Acetaminophen 325 MG TABLET 650 MG PO (11:40)
--- NOTE | 2022-08-07 12:15 | HO.PM.IMPN ---
Subjective Subjective Date of Service: 08/07/22 Interval History: feeling better less right lower extremity discomfort, no fevers no chills no other acute events overnight tolerating diet with no nausea, no vomiting, no diarrhea. Review of Systems Review of Systems: Yes all other systems are reviewed and are negative Physical Exam Vital Signs: Vital Signs: Last Vital Signs Temp 97 F 08/07/22 11:05 Pulse 98 08/07/22 11:05 Resp 18 08/07/22 11:05 BP 130/66 08/07/22 11:05 Pulse Ox 95 08/07/22 11:05 O2 Del Method 08/07/22 11:05 O2 Flow Rate 0.5 08/04/22 08:00 BMI result Body Mass Index 45.7 Const: Other: General? awake alert x3, no acute distress.? Neck no JVD. CVS? regular rate rhythm, Respiratory lungs clear to auscultation, no respiratory distress, no wheeze, no rhonchi. Gastrointestinal abdomen soft, nontender, bowel sounds audible, no guarding , no rigidity. Extremities? significant swelling/ redness right lower extremity involving entire rt. leg , mild improvement in redness noted Neuro nonfocal ,speech clear. psych appropriate affect Objective Data Active Medications Acetaminophen (Acetaminophen 325 Mg Tablet) 650 mg PO Q6H PRN PRN Reason: Pain, Mild (Pain Scale 1-3) Last Admin: 08/07/22 11:40 Dose: 650 mg Documented By: PERRY Clotrimazole (Clotrimazole 1 % Cream 15 Gm Tube) 1 appl TOPICAL BID [facility] Last Admin: 08/07/22 09:16 Dose: 1 appl Documented By: PERRY Docusate Sodium (Docusate Sodium 100 Mg Capsule) 100 mg PO DAILY [facility] Last Admin: 08/07/22 09:16 Dose: 100 mg Documented By: PERRY Enoxaparin Sodium (Enoxaparin Sodium 40 Mg/0.4 Ml Syringe) 40 mg SUBCUT Q24H [facility] Last Admin: 08/07/22 01:27 Dose: 40 mg Documented By: NANCY Hydromorphone HCl (Hydromorphone Hcl 0.5 Mg/0.5 Ml Syringe) 1 mg IVPUSH Q4H PRN; Protocol PRN Reason: Breakthrough Pain Last Admin: 08/07/22 09:21 Dose: 1 mg Documented By: PERRY Linezolid (Zyvox/D5w) 600 mg in 300 mls @ 300 mls/hr IV Q12H [facility] Last Infusion: 08/07/22 03:59 Dose: 0 mls/hr Documented By: NANCY Levofloxacin (Levaquin) 750 mg in 150 mls @ 100 mls/hr IV Q24H [facility] Last Infusion: 08/07/22 11:00 Dose: 0 mls/hr Documented By: PERRY Melatonin (Melatonin 3 Mg Tablet) 6 mg PO BEDTIME PRN PRN Reason: Insomnia Last Admin: 08/05/22 20:50 Dose: 6 mg Documented By: PERRY Oxycodone HCl (Oxycodone Hcl Immed Release 5 Mg Tablet) 5 mg PO Q6H PRN PRN Reason: Pain, Moderate (Pain Scale 4-6 Last Admin: 08/07/22 06:34 Dose: 5 mg Documented By: NANCY Pharmacy Consult (Consult Rx Vancomycin Dosing) 1 each MISCELLANE DAILY PRN PRN Reason: Consult order Senna (Sennosides 8.6 Mg Tablet) 17.2 mg PO BEDTIME PRN PRN Reason: Constipation Sodium Chloride (0.9 % Sodium Chloride Flush 3 Ml Syringe) 3 ml IVFLUSH QSHIFT [facility] Last Admin: 08/07/22 09:15 Dose: 3 ml Documented By: PERRY Triamcinolone Acetonide (Triamcinolone Acet 0.5 % Cream 15 Gm Tube) 1 appl TOPICAL BID [facility]; Protocol Last Admin: 08/07/22 09:16 Dose: 1 appl Documented By: PERRY Labs CBC & Chem 7: 07/30/22 04:34 08/07/22 05:31 Labs: Laboratory Results - last 24 hr 08/07/22 05:31 Anion Gap 18 Estim Creat Clear Calc 104.9 Estimated GFR > 60 Random Glucose 298 H Calcium 8.3 L Assessment and Plan (1) YARELI (acute kidney injury): Status: Acute (2) Morbid obesity: Status: Acute (3) Bacteremia due to Pseudomonas: Status: Acute Plan 57-year-old female with a past medical history of cellulitis presented to the hospital today with a chief complaint of right leg pain and swelling and found to have right leg cellulitis and gram negative analia sepsis # right lower extremity cellulitis due to Pseudomonas sepsis resolved, blood cultures x 2 grew Pseudomonas , WBC normalized, no fevers s/p to iv Cefepime x 6 days due to persistent redness and swelling id recommended Levaquin 750 mg daily started on 08/06 for better penetration for Pseudomonas coverage -continue Zyvox for gram poistive coverage -venoud duplex no dvt for pain will continue as needed oxycodone and IV Dilaudid 1 mg q.4 hours as needed keep leg elevated follow clinical course resume Lasix follow renal function closely #Morbid obesity--contributing health issues, weight loss advised #YARELI--etiology unclear, possible pre renal state--has resolved Cr alek to 1.03.s/p ivf DVT prophylaxis:? Lovenox Code status:? Full code need for inaptient: bacteremia d/t Pseudomonas, on IV antibiotics for extensive cellulitis of the leg not yet optimal for home therapy, unable to walk. Quality Stroke Does the patient have a stroke diagnosis?: No VTE Prior VTE?: No VTE Risk Level:: Medical - moderate - high VTE Device Contraindication: Treatment Not Indicated VTE Drug Contraindication: N/A - Med Ordered
[2022-08-07] MEDS: Furosemide 40 MG TABLET PO (12:42)
--- NOTE | 2022-08-07 14:49 | MHC.CM.PN ---
PER HOSPITALIST ROUNDS, PATIENT IS LIKELY HERE THROUGH THE WEEKEND
[2022-08-07 16:00] VITALS: BP 139/68; PULSE 105; RESP 18; TEMP 36.1; O2SAT 98
[2022-08-07 19:21] VITALS: BP 150/72; PULSE 92; RESP 17; TEMP 36.8; O2SAT 97
[2022-08-08] VITALS (7 sets, daily range): BP systolic 135–184; BP diastolic 66–89; PULSE 80–97; RESP 16–18; TEMP 36.3–37.1; O2SAT 92–98
[2022-08-08] MEDS: Enoxaparin Sodium 40 MG/0.4 ML SYRINGE SUBCUT (01:04)
[2022-08-08] MEDS: HYDROmorphone HCl 0.5 MG/0.5 ML SYRINGE 1 MG IVPUSH ×2 (01:07→07:54)
[2022-08-08] MEDS: Melatonin 3 MG TABLET 6 MG PO (01:08)
[2022-08-08] MEDS: Linezolid/D5W 600 MG/300 ML PIGGYBACK 300 MG IV ×2 (03:12→15:06)
[2022-08-08] MEDS: levoFLOXacin/D5W 750 MG/150 ML PIGGYBACK 100 MG IV (07:53)
[2022-08-08] MEDS: Docusate Sodium 100 MG CAPSULE PO (07:55)
[2022-08-08] MEDS: Sennosides 8.6 MG TABLET 17.2 MG PO ×2 (07:55→22:27)
[2022-08-08] MEDS: Furosemide 40 MG TABLET PO (07:55)
[2022-08-08] MEDS: Triamcinolone Acet 0.5 % Cream 15 GM TUBE 1 APPL TOPICAL ×2 (07:56→22:27)
[2022-08-08] MEDS: 0.9 % Sodium Chloride Flush 3 ML SYRINGE IVFLUSH (07:56)
[2022-08-08] MEDS: Clotrimazole 1 % Cream 15 GM TUBE 1 APPL TOPICAL ×2 (07:56→22:27)
[2022-08-08] MEDS: HYDROmorphone HCl 0.5 MG/0.5 ML SYRINGE IVPUSH (12:02)
--- NOTE | 2022-08-08 16:44 | HO.PM.IMPN ---
Subjective Subjective Date of Service: 08/08/22 Interval History: patient resting comfortably, feels right lower extremity pain is stable, denies fever chills no other acute issues tolerating diet no nausea no vomiting, denies chest pain, no shortness of breath, no palpitation, denies lightheadedness or dizziness. Review of Systems Review of Systems: Yes all other systems are reviewed and are negative Physical Exam Vital Signs: Vital Signs: Last Vital Signs Temp 98.1 F 08/08/22 15:33 Pulse 92 08/08/22 15:33 Resp 18 08/08/22 15:33 BP 135/73 08/08/22 15:33 Pulse Ox 95 08/08/22 15:33 O2 Del Method 08/08/22 15:33 O2 Flow Rate 0.5 08/04/22 08:00 BMI result Body Mass Index 45.7 Const: Other: General? awake alert x3, no acute distress.? Neck no JVD. CVS? regular rate rhythm, Respiratory lungs clear to auscultation, no respiratory distress, no wheeze, no rhonchi. Gastrointestinal abdomen soft, nontender, bowel sounds audible, no guarding , no rigidity. Extremities? significant swelling/ redness right lower extremity involving entire rt. leg , mild improvement in redness noted since yesterday Neuro nonfocal ,speech clear. psych appropriate affect Objective Data Active Medications Acetaminophen (Acetaminophen 325 Mg Tablet) 650 mg PO Q6H PRN PRN Reason: Pain, Mild (Pain Scale 1-3) Last Admin: 08/07/22 11:40 Dose: 650 mg Documented By: PERRY Clotrimazole (Clotrimazole 1 % Cream 15 Gm Tube) 1 appl TOPICAL BID [facility] Last Admin: 08/08/22 07:56 Dose: 1 appl Documented By: PERRY Docusate Sodium (Docusate Sodium 100 Mg Capsule) 200 mg PO DAILY [facility] Enoxaparin Sodium (Enoxaparin Sodium 40 Mg/0.4 Ml Syringe) 40 mg SUBCUT Q24H [facility] Last Admin: 08/08/22 01:04 Dose: 40 mg Documented By: ROSENDA Furosemide (Furosemide 40 Mg Tablet) 40 mg PO DAILY [facility]; Protocol Last Admin: 08/08/22 07:55 Dose: 40 mg Documented By: PERRY Hydromorphone HCl (Hydromorphone Hcl 0.5 Mg/0.5 Ml Syringe) 0.5 mg IVPUSH Q6H PRN; Protocol PRN Reason: Breakthrough Pain Last Admin: 08/08/22 12:02 Dose: 0.5 mg Documented By: PERRY Linezolid (Zyvox/D5w) 600 mg in 300 mls @ 300 mls/hr IV Q12H [facility] Last Infusion: 08/08/22 16:34 Dose: 0 mls/hr Documented By: PERRY Levofloxacin (Levaquin) 750 mg in 150 mls @ 100 mls/hr IV Q24H [facility] Last Infusion: 08/08/22 09:44 Dose: 0 mls/hr Documented By: PERRY Melatonin (Melatonin 3 Mg Tablet) 6 mg PO BEDTIME PRN PRN Reason: Insomnia Last Admin: 08/08/22 01:08 Dose: 6 mg Documented By: ROSENDA Oxycodone HCl (Oxycodone Hcl Immed Release 5 Mg Tablet) 5 mg PO Q6H PRN PRN Reason: Pain, Moderate (Pain Scale 4-6 Last Admin: 08/07/22 20:26 Dose: 5 mg Documented By: SANGEETA Pharmacy Consult (Consult Rx Vancomycin Dosing) 1 each MISCELLANE DAILY PRN PRN Reason: Consult order Senna (Sennosides 8.6 Mg Tablet) 17.2 mg PO BEDTIME [facility] Sodium Chloride (0.9 % Sodium Chloride Flush 3 Ml Syringe) 3 ml IVFLUSH QSHIFT [facility] Last Admin: 08/08/22 15:20 Dose: Not Given Documented By: PERRY Non-Admin Reason: IV Running Triamcinolone Acetonide (Triamcinolone Acet 0.5 % Cream 15 Gm Tube) 1 appl TOPICAL BID [facility]; Protocol Last Admin: 08/08/22 07:56 Dose: 1 appl Documented By: PERRY Labs CBC & Chem 7: 07/30/22 04:34 08/07/22 05:31 Assessment and Plan (1) YARELI (acute kidney injury): Status: Acute (2) Morbid obesity: Status: Acute (3) Bacteremia due to Pseudomonas: Status: Acute Plan 57-year-old female with a past medical history of cellulitis presented to the hospital today with a chief complaint of right leg pain and swelling and found to have right leg cellulitis and gram negative analia sepsis # right lower extremity cellulitis due to Pseudomonas sepsis resolved, blood cultures x 2 grew Pseudomonas , WBC normalized, no fevers s/p to iv Cefepime x 6 days due to persistent redness and swelling id recommended Levaquin 750 mg daily day 2 started on 08/06 for better penetration for Pseudomonas coverage continue Zyvox for gram poistive coverage day 9 venoud duplex no dvt for pain will continue as needed oxycodone and reduce dose of IV Dilaudid to 0.5mg q.4 hours as needed keep leg elevated follow clinical course continue Lasix 40 mg b.i.d., follow renal function closely will discuss with ID regarding further antibiotic adjustment due to slow improvement in cellulitis #Morbid obesity--contributing health issues, weight loss advised #YARELI--etiology unclear, possible pre renal state--has resolved Cr alek to 1.03.s/p ivf # constipation likely due to narcotics, will place on Colace 200 mg daily and Senokot #hyperglycemia with no prior history of diabetes will check hemoglobin A1c place patient on diabetic diet and insulin sliding scale follow blood sugars. DVT prophylaxis:? Lovenox Code status:? Full code need for inaptient: bacteremia d/t Pseudomonas, on IV antibiotics for extensive cellulitis of the leg not yet optimal for home therapy, unable to walk. Quality Stroke Does the patient have a stroke diagnosis?: No VTE Prior VTE?: No VTE Risk Level:: Medical - moderate - high VTE Device Contraindication: Treatment Not Indicated VTE Drug Contraindication: N/A - Med Ordered
[2022-08-08 22:11] LABS: Glucose, Whole Blood 256 mg/dL (60-115)
[2022-08-08] MEDS: Insulin Lispro 100 UNIT/ML 3 ML VIAL SUBCUT (22:25)
[2022-08-08] MEDS: oxyCODONE HCl Immed Release 5 MG TABLET PO (22:37)
[2022-08-08] MEDS: Fluconazole 150 MG TABLET PO (22:43)
[2022-08-09] MEDS: 0.9 % Sodium Chloride Flush 3 ML SYRINGE IVFLUSH ×4 (00:34→21:56)
[2022-08-09] MEDS: Enoxaparin Sodium 40 MG/0.4 ML SYRINGE SUBCUT (02:08)
[2022-08-09] MEDS: Linezolid/D5W 600 MG/300 ML PIGGYBACK 300 MG IV ×2 (02:08→15:30)
[2022-08-09] MEDS: HYDROmorphone HCl 0.5 MG/0.5 ML SYRINGE IVPUSH ×3 (03:17→18:46)
[2022-08-09 03:31] VITALS: BP 143/77; PULSE 79; RESP 16; TEMP 36; O2SAT 92
[2022-08-09] MEDS: oxyCODONE HCl Immed Release 5 MG TABLET PO ×2 (06:41→21:55)
[2022-08-09 07:09] LABS: Estimated Average Glucose 246 mg/dL; Hemoglobin A1c % 10.2 %
[2022-08-09 07:23] LABS: Glucose, Whole Blood 224 mg/dL (60-115)
[2022-08-09 07:49] VITALS: BP 152/64; PULSE 82; RESP 20; TEMP 36; O2SAT 95
[2022-08-09] MEDS: Docusate Sodium 100 MG CAPSULE 200 MG PO (07:57)
[2022-08-09] MEDS: levoFLOXacin/D5W 750 MG/150 ML PIGGYBACK 100 MG IV (07:58)
[2022-08-09] MEDS: Furosemide 40 MG TABLET PO (07:58)
[2022-08-09] MEDS: Insulin Lispro 100 UNIT/ML 3 ML VIAL SUBCUT ×4 (07:59→21:57)
[2022-08-09] MEDS: Triamcinolone Acet 0.5 % Cream 15 GM TUBE 1 APPL TOPICAL ×2 (08:00→21:56)
[2022-08-09] MEDS: Clotrimazole 1 % Cream 15 GM TUBE 1 APPL TOPICAL ×2 (08:01→21:56)
[2022-08-09] MEDS: Insulin Glargine,Hum.rec.anlog 100 UNIT/ML 10 ML VIAL 10 UNIT SUBCUT (11:01)
[2022-08-09 11:18] VITALS: BP 150/69; PULSE 95; RESP 18; TEMP 36.6; O2SAT 97
[2022-08-09 11:34] LABS: Glucose, Whole Blood 242 mg/dL (60-115)
[2022-08-09 15:43] VITALS: BP 144/80; PULSE 90; RESP 20; TEMP 37.2; O2SAT 98
[2022-08-09 16:01] LABS: Glucose, Whole Blood 219 mg/dL (60-115)
--- NOTE | 2022-08-09 16:48 | HO.PM.IMPN ---
Subjective Subjective Date of Service: 08/10/22 Interval History: no acute overnight events being followed for right lower extremity cellulitis persistent redness and swelling, denies fever, chills tolerating diet, no headache, lightheadedness, or dizziness mostly in bed, not aware of history of diabetes Review of Systems Review of Systems: Yes all other systems are reviewed and are negative Physical Exam Vital Signs: Vital Signs: Last Vital Signs Temp 99.0 F 08/09/22 15:43 Pulse 90 08/09/22 15:43 Resp 20 08/09/22 15:43 BP 144/80 H 08/09/22 15:43 Pulse Ox 98 08/09/22 15:43 O2 Del Method 08/09/22 15:43 O2 Flow Rate 0.5 08/04/22 08:00 BMI result Body Mass Index 45.7 Const: Other: General? awake alert x3, no acute distress.? Neck no JVD. CVS? regular rate rhythm, Respiratory lungs clear to auscultation, no respiratory distress, no wheeze, no rhonchi. Gastrointestinal abdomen soft, nontender, bowel sounds audible, no guarding , no rigidity. Extremities? significant swelling/ redness right lower extremity involving entire rt. leg , mild improvement in redness noted since yesterday Neuro nonfocal ,speech clear. psych appropriate affect Objective Data Active Medications Acetaminophen (Acetaminophen 325 Mg Tablet) 650 mg PO Q6H PRN PRN Reason: Pain, Mild (Pain Scale 1-3) Last Admin: 08/07/22 11:40 Dose: 650 mg Documented By: PERRY Clotrimazole (Clotrimazole 1 % Cream 15 Gm Tube) 1 appl TOPICAL BID ON LICENSE OF [facility] Last Admin: 08/09/22 08:01 Dose: 1 appl Documented By: ALEJANDRA Dextrose (Dextrose 50 % 25 Gm/50 Ml Syringe) 25 gm IVPUSH Q15M PRN; Protocol PRN Reason: per Hypoglycemia Standing Ord. Docusate Sodium (Docusate Sodium 100 Mg Capsule) 200 mg PO DAILY ON LICENSE OF [facility] Last Admin: 08/09/22 07:57 Dose: 200 mg Documented By: ALEJANDRA Enoxaparin Sodium (Enoxaparin Sodium 40 Mg/0.4 Ml Syringe) 40 mg SUBCUT Q24H ON LICENSE OF [facility] Last Admin: 08/09/22 02:08 Dose: 40 mg Documented By: ALYSSA Furosemide (Furosemide 40 Mg Tablet) 40 mg PO DAILY [facility]; Protocol Last Admin: 08/09/22 07:58 Dose: 40 mg Documented By: ALEJANDRA Glucose (Glucose Gel 15 Gm Gel..Gram.) 15 gm PO Q15M PRN; Protocol PRN Reason: per Hypoglycemia Standing Ord. Hydromorphone HCl (Hydromorphone Hcl 0.5 Mg/0.5 Ml Syringe) 0.5 mg IVPUSH Q6H PRN; Protocol PRN Reason: Breakthrough Pain Last Admin: 08/09/22 12:46 Dose: 0.5 mg Documented By: ALEJANDRA Linezolid (Zyvox/D5w) 600 mg in 300 mls @ 300 mls/hr IV Q12H [facility] Last Infusion: 08/09/22 16:33 Dose: 0 mls/hr Documented By: ALEJANDRA Levofloxacin (Levaquin) 750 mg in 150 mls @ 100 mls/hr IV Q24H [facility] Last Infusion: 08/09/22 11:02 Dose: 0 mls/hr Documented By: ALEJANDRA Insulin Glargine (Insulin Glargine,Hum.Rec.Anlog 100 Unit/Ml 10 Ml Vial) 10 unit SUBCUT DAILY ON LICENSE OF [facility] Last Admin: 08/09/22 11:01 Dose: 10 unit Documented By: ALEJANDRA Insulin Human Lispro (Insulin Lispro 100 Unit/Ml 3 Ml Vial) 0 unit SUBCUT QIDACHS ON LICENSE OF [facility]; Protocol Last Admin: 08/09/22 16:31 Dose: 4 unit Documented By: ALEJANDRA Melatonin (Melatonin 3 Mg Tablet) 6 mg PO BEDTIME PRN PRN Reason: Insomnia Last Admin: 08/08/22 01:08 Dose: 6 mg Documented By: ROSENDA Oxycodone HCl (Oxycodone Hcl Immed Release 5 Mg Tablet) 5 mg PO Q6H PRN PRN Reason: Pain, Moderate (Pain Scale 4-6 Last Admin: 08/09/22 06:41 Dose: 5 mg Documented By: ALYSSA Senna (Sennosides 8.6 Mg Tablet) 17.2 mg PO BEDTIME [facility] Last Admin: 08/08/22 22:27 Dose: 17.2 mg Documented By: EUGENIO Sodium Chloride (0.9 % Sodium Chloride Flush 3 Ml Syringe) 3 ml IVFLUSH QSHIFT [facility] Last Admin: 08/09/22 15:35 Dose: 3 ml Documented By: ALEJANDRA Triamcinolone Acetonide (Triamcinolone Acet 0.5 % Cream 15 Gm Tube) 1 appl TOPICAL BID ON LICENSE OF [facility]; Protocol Last Admin: 08/09/22 08:00 Dose: 1 appl Documented By: ALEJANDRA Labs CBC & Chem 7: 07/30/22 04:34 08/07/22 05:31 Labs: Laboratory Results - last 24 hr 08/08/22 08/09/22 08/09/22 22:07 05:47 07:18 POC Glucose 256 H 224 H Estimat Average Glucose 246 Hemoglobin A1c % 10.2 08/09/22 08/09/22 11:16 15:46 POC Glucose 242 H 219 H Estimat Average Glucose Hemoglobin A1c % Assessment and Plan (1) YARELI (acute kidney injury): Status: Acute (2) Morbid obesity: Status: Acute (3) Bacteremia due to Pseudomonas: Status: Acute Plan 57-year-old female with a past medical history of cellulitis presented to the hospital today with a chief complaint of right leg pain and swelling and found to have right leg cellulitis and gram negative analia sepsis # right lower extremity cellulitis due to Pseudomonas sepsis resolved, blood cultures x 2 grew Pseudomonas , WBC normalized, no fevers s/p to iv Cefepime x 6 days due to persistent redness and swelling id recommended Levaquin 750 mg daily day 3 started on 08/06 for better penetration for Pseudomonas coverage continue Zyvox for gram poistive coverage day 10 venoud duplex no dvt for pain will continue as needed oxycodone and IV Dilaudid 0.5mg q.4 hours as needed keep leg elevated follow clinical course continue Lasix 40 mg daily., follow renal function closely. id recommend steroid creams and current antibiotics. #Morbid obesity--contributing health issues, weight loss advised #YARELI--etiology unclear, possible pre renal state--has resolved Cr alek to 1.03.s/p ivf # constipation likely due to narcotics, will place on Colace 200 mg daily and Senokot # new onset diabetes mellitus with hyperglycemia hemoglobin A1c 10.2 blood sugar 200-[address] on Lantus and insulin sliding scale added diabetic diet DVT prophylaxis:? Lovenox Code status:? Full code need for inaptient: bacteremia d/t Pseudomonas, on IV antibiotics for extensive cellulitis of the leg not yet optimal for home therapy, unable to walk. Quality Stroke Does the patient have a stroke diagnosis?: No VTE Prior VTE?: No VTE Risk Level:: Medical - moderate - high VTE Device Contraindication: Treatment Not Indicated VTE Drug Contraindication: N/A - Med Ordered
[2022-08-09 19:55] VITALS: BP 139/73; PULSE 92; RESP 20; TEMP 36.6; O2SAT 96
[2022-08-09 20:18] LABS: Glucose, Whole Blood 212 mg/dL (60-115)
[2022-08-09] MEDS: Melatonin 3 MG TABLET 6 MG PO (21:55)
[2022-08-09] MEDS: Sennosides 8.6 MG TABLET 17.2 MG PO (21:55)
[2022-08-09 23:46] VITALS: BP 142/63; PULSE 83; RESP 18; TEMP 36; O2SAT 96
[2022-08-10] MEDS: Enoxaparin Sodium 40 MG/0.4 ML SYRINGE SUBCUT (02:52)
[2022-08-10] MEDS: Linezolid/D5W 600 MG/300 ML PIGGYBACK 300 MG IV ×2 (02:53→14:55)
[2022-08-10 04:00] VITALS: BP 160/72; PULSE 86; RESP 17; TEMP 36.2; O2SAT 96
[2022-08-10] MEDS: HYDROmorphone HCl 0.5 MG/0.5 ML SYRINGE IVPUSH (06:44)
[2022-08-10 07:55] LABS: Glucose, Whole Blood 201 mg/dL (60-115)
[2022-08-10 07:58] VITALS: BP 119/78; PULSE 85; RESP 17; TEMP 35.8; O2SAT 97
[2022-08-10] MEDS: Insulin Lispro 100 UNIT/ML 3 ML VIAL SUBCUT ×4 (08:10→20:41)
[2022-08-10] MEDS: Acetaminophen 325 MG TABLET 650 MG PO (08:21)
[2022-08-10] MEDS: Furosemide 40 MG TABLET PO (09:40)
[2022-08-10] MEDS: Docusate Sodium 100 MG CAPSULE 200 MG PO (09:40)
[2022-08-10] MEDS: Insulin Glargine,Hum.rec.anlog 100 UNIT/ML 10 ML VIAL 15 UNIT SUBCUT (09:41)
[2022-08-10] MEDS: Triamcinolone Acet 0.5 % Cream 15 GM TUBE 1 APPL TOPICAL (09:42)
[2022-08-10] MEDS: levoFLOXacin/D5W 750 MG/150 ML PIGGYBACK 100 MG IV (09:42)
[2022-08-10] MEDS: 0.9 % Sodium Chloride Flush 3 ML SYRINGE IVFLUSH ×3 (09:42→20:43)
[2022-08-10] MEDS: Clotrimazole 1 % Cream 15 GM TUBE 1 APPL TOPICAL ×2 (09:43→20:39)
[2022-08-10 11:16] LABS: Glucose, Whole Blood 208 mg/dL (60-115)
[2022-08-10 12:00] VITALS: BP 131/67; PULSE 103; RESP 17; TEMP 35.9; O2SAT 95
--- NOTE | 2022-08-10 13:15 | P.PNIM_ITS ---
Subjective Subjective Date of Service: 08/10/22 Interval History: offers no acute complaints sitting on chair, complaining of persistent redness and swelling denies fevers, no chills, no nausea, no vomiting, no diarrhea tolerating diet denies lightheadedness or dizziness, no acute issues overnight. Review of Systems Review of Systems: Yes all other systems are reviewed and are negative Physical Exam Vital Signs: Vital Signs: Last Vital Signs Temp 96.4 F L 08/10/22 07:58 Pulse 85 08/10/22 07:58 Resp 17 08/10/22 07:58 BP 119/78 08/10/22 07:58 Pulse Ox 97 08/10/22 07:58 O2 Del Method 08/10/22 07:58 O2 Flow Rate 0.5 08/04/22 08:00 BMI result Body Mass Index 45.7 Const: Other: General? awake alert x3, no acute distress.? Neck no JVD. CVS? regular rate rhythm, Respiratory lungs clear to auscultation, no respiratory distress, no wheeze, no rhonchi. Gastrointestinal abdomen soft, nontender, bowel sounds audible, no guarding , no rigidity. Extremities? significant swelling/ redness right lower extremity involving entire rt. leg , mild improvement in redness noted As compared to yesterday Neuro nonfocal ,speech clear. psych appropriate affect Objective Data Active Medications Acetaminophen (Acetaminophen 325 Mg Tablet) 650 mg PO Q6H PRN PRN Reason: Pain, Mild (Pain Scale 1-3) Last Admin: 08/10/22 08:21 Dose: 650 mg Documented By: RACHANA Clotrimazole (Clotrimazole 1 % Cream 15 Gm Tube) 1 appl TOPICAL BID [facility] Last Admin: 08/10/22 09:43 Dose: 1 appl Documented By: RACHANA Dextrose (Dextrose 50 % 25 Gm/50 Ml Syringe) 25 gm IVPUSH Q15M PRN; Protocol PRN Reason: per Hypoglycemia Standing Ord. Docusate Sodium (Docusate Sodium 100 Mg Capsule) 200 mg PO DAILY [facility] Last Admin: 08/10/22 09:40 Dose: 200 mg Documented By: RACHANA Enoxaparin Sodium (Enoxaparin Sodium 40 Mg/0.4 Ml Syringe) 40 mg SUBCUT Q24H [facility] Last Admin: 08/10/22 02:52 Dose: 40 mg Documented By: SANTOSH Furosemide (Furosemide 40 Mg Tablet) 40 mg PO DAILY [facility]; Protocol Last Admin: 08/10/22 09:40 Dose: 40 mg Documented By: RACHANA Glucose (Glucose Gel 15 Gm Gel..Gram.) 15 gm PO Q15M PRN; Protocol PRN Reason: per Hypoglycemia Standing Ord. Hydromorphone HCl (Hydromorphone Hcl 0.5 Mg/0.5 Ml Syringe) 0.5 mg IVPUSH Q6H PRN; Protocol PRN Reason: Breakthrough Pain Last Admin: 08/10/22 06:44 Dose: 0.5 mg Documented By: SANTOSH Linezolid (Zyvox/D5w) 600 mg in 300 mls @ 300 mls/hr IV Q12H [facility] Last Infusion: 08/10/22 05:04 Dose: 0 mls/hr Documented By: SANTOSH Levofloxacin (Levaquin) 750 mg in 150 mls @ 100 mls/hr IV Q24H [facility] Last Infusion: 08/10/22 11:31 Dose: 0 mls/hr Documented By: ALEJANDRA Insulin Glargine (Insulin Glargine,Hum.Rec.Anlog 100 Unit/Ml 10 Ml Vial) 15 unit SUBCUT DAILY [facility] Last Admin: 08/10/22 09:41 Dose: 15 unit Documented By: RACHANA Insulin Human Lispro (Insulin Lispro 100 Unit/Ml 3 Ml Vial) 0 unit SUBCUT QIDACHS [facility]; Protocol Last Admin: 08/10/22 11:45 Dose: 4 unit Documented By: RACHANA Melatonin (Melatonin 3 Mg Tablet) 6 mg PO BEDTIME PRN PRN Reason: Insomnia Last Admin: 08/09/22 21:55 Dose: 6 mg Documented By: SANTOSH Oxycodone HCl (Oxycodone Hcl Immed Release 5 Mg Tablet) 5 mg PO Q6H PRN PRN Reason: Pain, Moderate (Pain Scale 4-6 Last Admin: 08/09/22 21:55 Dose: 5 mg Documented By: SANTOSH Senna (Sennosides 8.6 Mg Tablet) 17.2 mg PO BEDTIME [facility] Last Admin: 08/09/22 21:55 Dose: 17.2 mg Documented By: SANTOSH Sodium Chloride (0.9 % Sodium Chloride Flush 3 Ml Syringe) 3 ml IVFLUSH QSHIFT [facility] Last Admin: 08/10/22 09:42 Dose: 3 ml Documented By: RAHCANA Triamcinolone Acetonide (Triamcinolone Acet 0.5 % Cream 15 Gm Tube) 1 appl TOPICAL BID [facility]; Protocol Last Admin: 08/10/22 09:42 Dose: 1 appl Documented By: RACHANA Labs CBC & Chem 7: 07/30/22 04:34 08/07/22 05:31 Labs: Laboratory Results - last 24 hr 08/09/22 08/09/22 08/10/22 15:46 19:59 07:51 POC Glucose 219 H 212 H 201 H 08/10/22 11:01 POC Glucose 208 H Assessment and Plan (1) YARELI (acute kidney injury): Status: Acute (2) Morbid obesity: Status: Acute (3) Bacteremia due to Pseudomonas: Status: Acute Plan 57-year-old female with a past medical history of cellulitis presented to the hospital today with a chief complaint of right leg pain and swelling and found to have right leg cellulitis and gram negative analia sepsis # right lower extremity cellulitis due to Pseudomonas sepsis resolved, blood cultures x 2 grew Pseudomonas , WBC normalized, no fevers persistent redness and swelling slowly improving on Leaquin 750 mg daily day 4 started on 08/06 for better penetration for Pseudomonas coverage, s/p to iv Cefepime x 6 day continue Zyvox for gram poistive coverage day 11 venoud duplex no dvt for pain will continue as needed oxycodone and IV Dilaudid 0.5mg q.4 hours as needed keep leg elevated follow clinical course continue Lasix 40 mg daily., follow renal function closely. id recommend steroid creams added and current antibiotics. #Morbid obesity--contributing to health issues, weight loss advised #YARELI--etiology unclear, possible pre renal state--has resolved Cr alek to 1.03.s/p ivf # constipation likely due to narcotics, on Colace 200 mg daily and Senokot # new onset diabetes mellitus with hyperglycemia hemoglobin A1c 10.2 blood sugar 200-300 range placed on Lantus and insulin sliding scale and diabetic diet DVT prophylaxis:? Lovenox Code status:? Full code need for inaptient: bacteremia d/t Pseudomonas, on IV antibiotics for extensive cellulitis of the leg not yet optimal for home therapy, unable to walk. Quality Stroke Does the patient have a stroke diagnosis?: No VTE Prior VTE?: No VTE Risk Level:: Medical - moderate - high VTE Device Contraindication: Treatment Not Indicated VTE Drug Contraindication: N/A - Med Ordered
[2022-08-10] MEDS: oxyCODONE HCl Immed Release 5 MG TABLET PO ×2 (14:07→20:39)
[2022-08-10 15:45] VITALS: BP 134/69; PULSE 94; RESP 19; TEMP 37.1; O2SAT 96
[2022-08-10 15:54] LABS: Glucose, Whole Blood 183 mg/dL (60-115)
[2022-08-10 19:51] LABS: Glucose, Whole Blood 207 mg/dL (60-115)
[2022-08-10 20:00] VITALS: BP 126/63; PULSE 97; RESP 17; TEMP 36.5; O2SAT 97
[2022-08-10] MEDS: Melatonin 3 MG TABLET 6 MG PO (20:39)
[2022-08-10] MEDS: Sennosides 8.6 MG TABLET 17.2 MG PO (20:39)
[2022-08-10 21:58] LABS: Glucose, Whole Blood 186 mg/dL (60-115)
[2022-08-10 23:51] VITALS: BP 133/67; PULSE 94; RESP 17; TEMP 36.6; O2SAT 95
[2022-08-11] MEDS: Enoxaparin Sodium 40 MG/0.4 ML SYRINGE SUBCUT (01:49)
[2022-08-11] MEDS: Linezolid/D5W 600 MG/300 ML PIGGYBACK 300 MG IV ×2 (01:50→15:36)
[2022-08-11] MEDS: HYDROmorphone HCl 0.5 MG/0.5 ML SYRINGE IVPUSH ×4 (01:50→22:33)
[2022-08-11 04:00] VITALS: BP 130/61; PULSE 88; RESP 17; TEMP 36.5; O2SAT 93
[2022-08-11 07:06] VITALS: BP 142/63; PULSE 99; RESP 18; TEMP 36.1; O2SAT 95
[2022-08-11 07:29] LABS: Glucose, Whole Blood 177 mg/dL (60-115)
[2022-08-11] MEDS: Insulin Lispro 100 UNIT/ML 3 ML VIAL SUBCUT ×4 (07:36→21:14)
[2022-08-11] MEDS: levoFLOXacin/D5W 750 MG/150 ML PIGGYBACK 100 MG IV (07:37)
[2022-08-11] MEDS: Insulin Glargine,Hum.rec.anlog 100 UNIT/ML 10 ML VIAL 15 UNIT SUBCUT (07:37)
[2022-08-11] MEDS: 0.9 % Sodium Chloride Flush 3 ML SYRINGE IVFLUSH ×3 (07:37→21:15)
[2022-08-11] MEDS: Clotrimazole 1 % Cream 15 GM TUBE 1 APPL TOPICAL ×2 (07:39→21:09)
[2022-08-11] MEDS: Furosemide 40 MG TABLET PO (07:56)
[2022-08-11] MEDS: Triamcinolone Acet 0.5 % Cream 15 GM TUBE 1 APPL TOPICAL ×2 (08:02→21:09)
[2022-08-11 11:41] LABS: Glucose, Whole Blood 214 mg/dL (60-115)
[2022-08-11 11:47] VITALS: BP 134/63; PULSE 95; RESP 18; TEMP 36.4; O2SAT 98
--- NOTE | 2022-08-11 14:49 | HO.PM.IMPN ---
Subjective Subjective Date of Service: 08/11/22 Interval History: offers no acute complaints noted to have loose stools overnight ,denies abdominal pain, no nausea, no vomiting, feels right leg is less swollen, complaining of less right leg discomfort, no overnight fever chills no other acute issues, tolerating diet. Review of Systems Review of Systems: Yes all other systems are reviewed and are negative Physical Exam Vital Signs: Vital Signs: Last Vital Signs Temp 97.6 F 08/11/22 11:47 Pulse 95 08/11/22 11:47 Resp 18 08/11/22 11:47 BP 134/63 08/11/22 11:47 Pulse Ox 98 08/11/22 11:47 O2 Del Method 08/11/22 11:47 O2 Flow Rate 0.5 08/04/22 08:00 BMI result Body Mass Index 45.7 Const: Other: General? awake alert x3, no acute distress.? Neck no JVD. CVS? regular rate rhythm, Respiratory lungs clear to auscultation, no respiratory distress, no wheeze, no rhonchi. Gastrointestinal abdomen soft, nontender, bowel sounds audible, no guarding , no rigidity. Extremities? significant swelling/ redness right lower extremity involving entire rt. leg , mild improvement in redness and swelling noted as compared to yesterday Neuro nonfocal ,speech clear. psych appropriate affect Objective Data Active Medications Acetaminophen (Acetaminophen 325 Mg Tablet) 650 mg PO Q6H PRN PRN Reason: Pain, Mild (Pain Scale 1-3) Last Admin: 08/10/22 08:21 Dose: 650 mg Documented By: RACHANA Clotrimazole (Clotrimazole 1 % Cream 15 Gm Tube) 1 appl TOPICAL BID [facility] Last Admin: 08/11/22 07:39 Dose: 1 appl Documented By: ALEJANDRA Dextrose (Dextrose 50 % 25 Gm/50 Ml Syringe) 25 gm IVPUSH Q15M PRN; Protocol PRN Reason: per Hypoglycemia Standing Ord. Enoxaparin Sodium (Enoxaparin Sodium 40 Mg/0.4 Ml Syringe) 40 mg SUBCUT Q24H [facility] Last Admin: 08/11/22 01:49 Dose: 40 mg Documented By: SANTOSH Furosemide (Furosemide 40 Mg Tablet) 40 mg PO DAILY [facility]; Protocol Last Admin: 08/11/22 07:56 Dose: 40 mg Documented By: ALEJANDRA Glucose (Glucose Gel 15 Gm Gel..Gram.) 15 gm PO Q15M PRN; Protocol PRN Reason: per Hypoglycemia Standing Ord. Hydromorphone HCl (Hydromorphone Hcl 0.5 Mg/0.5 Ml Syringe) 0.5 mg IVPUSH Q6H PRN; Protocol PRN Reason: Breakthrough Pain Last Admin: 08/11/22 07:56 Dose: 0.5 mg Documented By: ALEJANDRA Linezolid (Zyvox/D5w) 600 mg in 300 mls @ 300 mls/hr IV Q12H [facility] Last Infusion: 08/11/22 03:39 Dose: 0 mls/hr Documented By: SANTOSH Levofloxacin (Levaquin) 750 mg in 150 mls @ 100 mls/hr IV Q24H [facility] Last Infusion: 08/11/22 09:18 Dose: 0 mls/hr Documented By: ALEJANDRA Insulin Glargine (Insulin Glargine,Hum.Rec.Anlog 100 Unit/Ml 10 Ml Vial) 15 unit SUBCUT DAILY [facility] Last Admin: 08/11/22 07:37 Dose: 15 unit Documented By: ALEJANDRA Insulin Human Lispro (Insulin Lispro 100 Unit/Ml 3 Ml Vial) 0 unit SUBCUT QIDACHS [facility]; Protocol Last Admin: 08/11/22 12:02 Dose: 4 unit Documented By: ALEJANDRA Melatonin (Melatonin 3 Mg Tablet) 6 mg PO BEDTIME PRN PRN Reason: Insomnia Last Admin: 08/10/22 20:39 Dose: 6 mg Documented By: SANTOSH Senna (Sennosides 8.6 Mg Tablet) 17.2 mg PO BEDTIME PRN PRN Reason: constipation Sodium Chloride (0.9 % Sodium Chloride Flush 3 Ml Syringe) 3 ml IVFLUSH QSHIFT [facility] Last Admin: 08/11/22 07:37 Dose: 3 ml Documented By: ALEJANDRA Triamcinolone Acetonide (Triamcinolone Acet 0.5 % Cream 15 Gm Tube) 1 appl TOPICAL BID [facility]; Protocol Last Admin: 08/11/22 08:02 Dose: 1 appl Documented By: ALEJANDRA Labs CBC & Chem 7: 07/30/22 04:34 08/07/22 05:31 Labs: Laboratory Results - last 24 hr 08/10/22 08/10/22 08/10/22 15:49 19:47 21:53 POC Glucose 183 H 207 H 186 H 08/11/22 08/11/22 07:25 11:28 POC Glucose 177 H 214 H Assessment and Plan (1) YARELI (acute kidney injury): Status: Acute (2) Morbid obesity: Status: Acute (3) Bacteremia due to Pseudomonas: Status: Acute Plan 57-year-old female with a past medical history of cellulitis presented to the hospital today with a chief complaint of right leg pain and swelling and found to have right leg cellulitis and gram negative analia sepsis # right lower extremity cellulitis due to Pseudomonas sepsis resolved, blood cultures x 2 grew Pseudomonas , WBC normalized, no fevers persistent redness and swelling slowly improving on Leaquin 750 mg daily day 5 started on 08/06 for better penetration for Pseudomonas coverage, s/p to iv Cefepime x 6 day continue Zyvox for gram poistive coverage day 12 venoud duplex no dvt for pain will continue as needed oxycodone and IV Dilaudid 0.5mg q.4 hours as needed keep leg elevated follow clinical course continue Lasix 40 mg daily., follow renal function closely. id recommend steroid creams added and current antibiotics. #Morbid obesity--contributing to health issues, weight loss advised #YARELI--etiology unclear, possible pre renal state--has resolved Cr alek to 1.03.s/p ivf # constipation likely due to narcotics, resolved now loose stools will DC Colace unchanged Senokot to as needed # new onset diabetes mellitus with hyperglycemia hemoglobin A1c 10.2 blood sugar improving placed on Lantus and insulin sliding scale and diabetic diet, will adjust Lantus dose DVT prophylaxis:? Lovenox Code status:? Full code need for inaptient: bacteremia d/t Pseudomonas, on IV antibiotics for extensive cellulitis of the leg not yet optimal for home therapy, unable to walk. Quality Stroke Does the patient have a stroke diagnosis?: No VTE Prior VTE?: No VTE Risk Level:: Medical - moderate - high VTE Device Contraindication: Treatment Not Indicated VTE Drug Contraindication: N/A - Med Ordered
[2022-08-11 15:36] VITALS: BP 145/95; PULSE 101; RESP 19; TEMP 37.4; O2SAT 98
[2022-08-11 15:44] LABS: Glucose, Whole Blood 167 mg/dL (60-115)
[2022-08-11 18:31] VITALS: BP 124/62; PULSE 104; RESP 19; TEMP 37.1; O2SAT 96
[2022-08-11 18:49] LABS: Glucose, Whole Blood 222 mg/dL (60-115)
[2022-08-11 23:52] VITALS: BP 141/66; PULSE 93; RESP 18; TEMP 36.6; O2SAT 98
[2022-08-12] MEDS: Enoxaparin Sodium 40 MG/0.4 ML SYRINGE SUBCUT (02:42)
[2022-08-12] MEDS: Linezolid/D5W 600 MG/300 ML PIGGYBACK 300 MG IV ×2 (02:43→16:02)
[2022-08-12 04:00] VITALS: BP 142/71; PULSE 94; RESP 18; TEMP 36.6; O2SAT 97
[2022-08-12] MEDS: HYDROmorphone HCl 0.5 MG/0.5 ML SYRINGE IVPUSH ×2 (04:12→20:28)
[2022-08-12 07:09] LABS: Glucose, Whole Blood 158 mg/dL (60-115)
[2022-08-12 07:51] VITALS: BP 131/65; PULSE 93; RESP 18; TEMP 36.7; O2SAT 96
[2022-08-12] MEDS: levoFLOXacin/D5W 750 MG/150 ML PIGGYBACK 100 MG IV (08:10)
[2022-08-12] MEDS: Insulin Glargine,Hum.rec.anlog 100 UNIT/ML 10 ML VIAL 15 UNIT SUBCUT (08:11)
[2022-08-12] MEDS: Insulin Lispro 100 UNIT/ML 3 ML VIAL SUBCUT ×3 (08:11→20:16)
[2022-08-12] MEDS: Clotrimazole 1 % Cream 15 GM TUBE 1 APPL TOPICAL ×2 (08:11→20:17)
[2022-08-12] MEDS: Furosemide 40 MG TABLET PO (08:11)
[2022-08-12] MEDS: Triamcinolone Acet 0.5 % Cream 15 GM TUBE 1 APPL TOPICAL ×2 (08:12→22:54)
[2022-08-12] MEDS: 0.9 % Sodium Chloride Flush 3 ML SYRINGE IVFLUSH ×3 (08:16→20:17)
[2022-08-12] MEDS: metFORMIN HCl 500 MG TABLET PO ×2 (09:21→16:02)
[2022-08-12 11:15] LABS: Glucose, Whole Blood 203 mg/dL (60-115)
[2022-08-12 12:00] VITALS: BP 120/67; PULSE 100; RESP 20; TEMP 36.4; O2SAT 95
--- NOTE | 2022-08-12 15:06 | HO.PM.IMPN ---
Subjective Subjective Date of Service: 08/12/22 Interval History: RLE red/swollen though improving no fever Physical Exam Vital Signs: Vital Signs: Last Vital Signs Temp 97.6 F 08/12/22 12:00 Pulse 100 08/12/22 12:00 Resp 20 08/12/22 12:00 BP 120/67 08/12/22 12:00 Pulse Ox 95 08/12/22 12:00 O2 Del Method 08/12/22 12:00 O2 Flow Rate 0.5 08/04/22 08:00 BMI result Body Mass Index 45.7 Gen: in no acute distress HEENT: sclera anicteric, moist mucus membranes Neck: supple Lungs: clear to auscultation bilaterally Heart: regular rate and rhythm, no murmurs Abd: soft, non-tender, non-distended, morbidly obese Ext: induration and erythema of RLE without any purulence or fluctuance Skin: warm/well-perfused Neuro: alert and oriented x3, no focal findings Psych: appropriate affect Objective Data Active Medications Acetaminophen (Acetaminophen 325 Mg Tablet) 650 mg PO Q6H PRN PRN Reason: Pain, Mild (Pain Scale 1-3) Last Admin: 08/10/22 08:21 Dose: 650 mg Documented By: RACHANA Clotrimazole (Clotrimazole 1 % Cream 15 Gm Tube) 1 appl TOPICAL BID [facility] Last Admin: 08/12/22 08:11 Dose: 1 appl Documented By: BARBI Dextrose (Dextrose 50 % 25 Gm/50 Ml Syringe) 25 gm IVPUSH Q15M PRN; Protocol PRN Reason: per Hypoglycemia Standing Ord. Enoxaparin Sodium (Enoxaparin Sodium 40 Mg/0.4 Ml Syringe) 40 mg SUBCUT Q24H [facility] Last Admin: 08/12/22 02:42 Dose: 40 mg Documented By: BONITA Furosemide (Furosemide 40 Mg Tablet) 40 mg PO DAILY [facility]; Protocol Last Admin: 08/12/22 08:11 Dose: 40 mg Documented By: BARBI Glucose (Glucose Gel 15 Gm Gel..Gram.) 15 gm PO Q15M PRN; Protocol PRN Reason: per Hypoglycemia Standing Ord. Hydromorphone HCl (Hydromorphone Hcl 0.5 Mg/0.5 Ml Syringe) 0.5 mg IVPUSH Q6H PRN; Protocol PRN Reason: Breakthrough Pain Last Admin: 08/12/22 04:12 Dose: 0.5 mg Documented By: BONITA Linezolid (Zyvox/D5w) 600 mg in 300 mls @ 300 mls/hr IV Q12H [facility] Last Infusion: 08/12/22 03:57 Dose: 300 mls/hr Documented By: BONITA Levofloxacin (Levaquin) 750 mg in 150 mls @ 100 mls/hr IV Q24H [facility] Last Infusion: 08/12/22 10:10 Dose: 0 mls/hr Documented By: BARBI Insulin Glargine (Insulin Glargine,Hum.Rec.Anlog 100 Unit/Ml 10 Ml Vial) 15 unit SUBCUT DAILY [facility] Last Admin: 08/12/22 08:11 Dose: 15 unit Documented By: BARBI Insulin Human Lispro (Insulin Lispro 100 Unit/Ml 3 Ml Vial) 0 unit SUBCUT QIDACHS [facility]; Protocol Last Admin: 08/12/22 11:57 Dose: 4 unit Documented By: BARBI Melatonin (Melatonin 3 Mg Tablet) 6 mg PO BEDTIME PRN PRN Reason: Insomnia Last Admin: 08/10/22 20:39 Dose: 6 mg Documented By: SANTOSH Metformin HCl (Metformin Hcl 500 Mg Tablet) 500 mg PO BIDWM [facility] Last Admin: 08/12/22 09:21 Dose: 500 mg Documented By: BARBI Senna (Sennosides 8.6 Mg Tablet) 17.2 mg PO BEDTIME PRN PRN Reason: constipation Sodium Chloride (0.9 % Sodium Chloride Flush 3 Ml Syringe) 3 ml IVFLUSH QSHIFT [facility] Last Admin: 08/12/22 08:16 Dose: 3 ml Documented By: BARBI Triamcinolone Acetonide (Triamcinolone Acet 0.5 % Cream 15 Gm Tube) 1 appl TOPICAL BID [facility]; Protocol Last Admin: 08/12/22 08:12 Dose: 1 appl Documented By: BARBI Labs CBC & Chem 7: 07/30/22 04:34 08/07/22 05:31 Labs: Laboratory Results - last 24 hr 08/11/22 08/11/22 08/12/22 15:39 18:38 07:04 POC Glucose 167 H 222 H 158 H 08/12/22 11:10 POC Glucose 203 H Assessment and Plan (1) YARELI (acute kidney injury): Status: Acute (2) Morbid obesity: Status: Acute (3) Bacteremia due to Pseudomonas: Status: Acute Plan hospital d#14 57yo F with prior episodes of cellultiis admitted for RLE cellulitis, found to have Pseudomonas bacteremia + new-onset DM2 # sepsis due to RLE cellultis and Pseudomonas bacteremia - sepsis resolved - WBC normalized - check BCx for clearance - on levofloxacin d#6 (s/p cefepime x 6d) - on linezolid for Gm+ coverage, d#12 - no DVT on venous duplex - continue oxycoodne + hydromorphone for pain - continue fursoemide - continue steroid creams - ID following # YARELI - likely prerenal, resolved s/p IV fluids # morbid obesity - weight loss # DM2, new-onset - Lantus + correction-dose lispro - start MTF # VTE ppx: LMWH # dispo: PT consult In my clinical judgment, the patient requires continued hospitalization for the following reasons: IV ABX Quality Stroke Does the patient have a stroke diagnosis?: No VTE Prior VTE?: No VTE Risk Level:: Medical - moderate - high VTE Device Contraindication: Treatment Not Indicated VTE Drug Contraindication: N/A - Med Ordered
[2022-08-12 15:37] VITALS: BP 136/63; PULSE 99; RESP 18; TEMP 36.7; O2SAT 97
[2022-08-12 15:48] LABS: Glucose, Whole Blood 134 mg/dL (60-115)
[2022-08-12 19:31] VITALS: BP 128/60; PULSE 95; RESP 18; TEMP 37.1; O2SAT 97
[2022-08-12 19:47] LABS: Glucose, Whole Blood 180 mg/dL (60-115)
[2022-08-13] VITALS (9 sets, daily range): BP systolic 111–165; BP diastolic 62–73; PULSE 84–101; RESP 17–20; TEMP 36.2–36.5; O2SAT 95–98
[2022-08-13] MEDS: Enoxaparin Sodium 40 MG/0.4 ML SYRINGE SUBCUT (02:24)
[2022-08-13] MEDS: Linezolid/D5W 600 MG/300 ML PIGGYBACK 300 MG IV ×2 (02:25→14:20)
[2022-08-13 07:29] LABS: Glucose, Whole Blood 186 mg/dL (60-115)
[2022-08-13] MEDS: levoFLOXacin/D5W 750 MG/150 ML PIGGYBACK 100 MG IV (08:15)
[2022-08-13] MEDS: Furosemide 40 MG TABLET PO (08:16)
[2022-08-13] MEDS: metFORMIN HCl 500 MG TABLET PO ×2 (08:16→16:13)
[2022-08-13] MEDS: Insulin Lispro 100 UNIT/ML 3 ML VIAL SUBCUT ×3 (08:16→20:51)
[2022-08-13] MEDS: Insulin Glargine,Hum.rec.anlog 100 UNIT/ML 10 ML VIAL 15 UNIT SUBCUT (08:16)
[2022-08-13] MEDS: HYDROmorphone HCl 0.5 MG/0.5 ML SYRINGE IVPUSH ×3 (08:17→22:06)
[2022-08-13] MEDS: Clotrimazole 1 % Cream 15 GM TUBE 1 APPL TOPICAL ×2 (08:18→20:53)
[2022-08-13] MEDS: Triamcinolone Acet 0.5 % Cream 15 GM TUBE 1 APPL TOPICAL ×2 (08:18→20:53)
[2022-08-13] MEDS: 0.9 % Sodium Chloride Flush 3 ML SYRINGE IVFLUSH (08:28)
[2022-08-13 11:34] LABS: Glucose, Whole Blood 200 mg/dL (60-115)
--- NOTE | 2022-08-13 14:32 | MHC.CM.PN ---
LIKELY ONE MORE DAY HERE AND THEN DC HOME. PER P.T. RECOMMENDATIONS, REFERRAL FOR HOME P.T. REFERRAL TO [facility] TO SEE IF THEY CAN OFFER AND ARE THEY CONTRACTED WITH [employer].
--- NOTE | 2022-08-13 14:45 | P.PNIM_ITS ---
Subjective Subjective Date of Service: 08/13/22 Interval History: leg redness/swelling improving no fever Review of Systems Review of Systems: Yes all other systems are reviewed and are negative Physical Exam Vital Signs: Vital Signs: Last Vital Signs Temp 97.4 F 08/13/22 11:12 Pulse 94 08/13/22 11:12 Resp 18 08/13/22 11:12 BP 138/68 08/13/22 11:12 Pulse Ox 98 08/13/22 11:12 O2 Del Method 08/13/22 11:12 O2 Flow Rate 0.5 08/04/22 08:00 BMI result Body Mass Index 45.7 Gen: in no acute distress HEENT: sclera anicteric, moist mucus membranes Neck: supple Lungs: clear to auscultation bilaterally Heart: regular rate and rhythm, no murmurs Abd: soft, non-tender, non-distended, morbidly obese Ext: induration and erythema of RLE without any purulence or fluctuance, improved from yesterday Skin: warm/well-perfused Neuro: alert and oriented x3, no focal findings Psych: appropriate affect Objective Data Active Medications Acetaminophen (Acetaminophen 325 Mg Tablet) 650 mg PO Q6H PRN PRN Reason: Pain, Mild (Pain Scale 1-3) Last Admin: 08/10/22 08:21 Dose: 650 mg Documented By: RACHANA Clotrimazole (Clotrimazole 1 % Cream 15 Gm Tube) 1 appl TOPICAL BID [facility] Last Admin: 08/13/22 08:18 Dose: 1 appl Documented By: BARBI Dextrose (Dextrose 50 % 25 Gm/50 Ml Syringe) 25 gm IVPUSH Q15M PRN; Protocol PRN Reason: per Hypoglycemia Standing Ord. Enoxaparin Sodium (Enoxaparin Sodium 40 Mg/0.4 Ml Syringe) 40 mg SUBCUT Q24H [facility] Last Admin: 08/13/22 02:24 Dose: 40 mg Documented By: MECHELLE Furosemide (Furosemide 40 Mg Tablet) 40 mg PO DAILY [facility]; Protocol Last Admin: 08/13/22 08:16 Dose: 40 mg Documented By: BARBI Glucose (Glucose Gel 15 Gm Gel..Gram.) 15 gm PO Q15M PRN; Protocol PRN Reason: per Hypoglycemia Standing Ord. Hydromorphone HCl (Hydromorphone Hcl 0.5 Mg/0.5 Ml Syringe) 0.5 mg IVPUSH Q6H PRN; Protocol PRN Reason: Breakthrough Pain Last Admin: 08/13/22 14:22 Dose: 0.5 mg Documented By: BARBI Linezolid (Zyvox/D5w) 600 mg in 300 mls @ 300 mls/hr IV Q12H [facility] Last Admin: 08/13/22 14:20 Dose: 300 mls/hr Documented By: BARBI Levofloxacin (Levaquin) 750 mg in 150 mls @ 100 mls/hr IV Q24H [facility] Last Infusion: 08/13/22 10:42 Dose: 0 mls/hr Documented By: BARBI Insulin Glargine (Insulin Glargine,Hum.Rec.Anlog 100 Unit/Ml 10 Ml Vial) 15 unit SUBCUT DAILY [facility] Last Admin: 08/13/22 08:16 Dose: 15 unit Documented By: BARBI Insulin Human Lispro (Insulin Lispro 100 Unit/Ml 3 Ml Vial) 0 unit SUBCUT QIDACHS [facility]; Protocol Last Admin: 08/13/22 12:02 Dose: 2 unit Documented By: BARBI Melatonin (Melatonin 3 Mg Tablet) 6 mg PO BEDTIME PRN PRN Reason: Insomnia Last Admin: 08/10/22 20:39 Dose: 6 mg Documented By: SANTOSH Metformin HCl (Metformin Hcl 500 Mg Tablet) 500 mg PO BIDWM [facility] Last Admin: 08/13/22 08:16 Dose: 500 mg Documented By: BARBI Senna (Sennosides 8.6 Mg Tablet) 17.2 mg PO BEDTIME PRN PRN Reason: constipation Sodium Chloride (0.9 % Sodium Chloride Flush 3 Ml Syringe) 3 ml IVFLUSH QSHIFT [facility] Last Admin: 08/13/22 08:28 Dose: 3 ml Documented By: BARBI Triamcinolone Acetonide (Triamcinolone Acet 0.5 % Cream 15 Gm Tube) 1 appl TOPICAL BID [facility]; Protocol Last Admin: 08/13/22 08:18 Dose: 1 appl Documented By: BARBI Labs CBC & Chem 7: 07/30/22 04:34 08/07/22 05:31 Labs: Laboratory Results - last 24 hr 08/12/22 08/12/2208/13/22 15:40 19:34 07:23 POC Glucose 134 H 180 H 186 H 08/13/22 11:15 POC Glucose 200 H Microbiology Microbiology Results: Microbiology 08/12/22 08:27 Blood Culture - Preliminary Blood - Venous No growth after 24 hours. 08/12/22 08:27 Blood Culture - Preliminary Blood - Venous No growth after 24 hours. Assessment and Plan (1) YARELI (acute kidney injury): Status: Acute (2) Morbid obesity: Status: Acute (3) Bacteremia due to Pseudomonas: Status: Acute Plan hospital d#15 57yo F with prior episodes of cellultiis admitted for RLE cellulitis, found to have Pseudomonas bacteremia + new-onset DM2 # sepsis due to RLE cellultis and Pseudomonas bacteremia - sepsis resolved - WBC normalized - check BCx for clearance - on levofloxacin d#7 (s/p cefepime x 6d) - on linezolid for Gm+ coverage, d#13 - no DVT on venous duplex - continue oxycoodne + hydromorphone for pain - continue furosemide - continue steroid creams - ID following # YARELI - likely prerenal, resolved s/p IV fluids # morbid obesity - weight loss # DM2, new-onset - Lantus + correction-dose lispro - start MTF # VTE ppx: LMWH # dispo: PT consult- home with VNA recommended In my clinical judgment, the patient requires continued hospitalization for the following reasons: IV ABX, pending BCx clearance Quality Stroke Does the patient have a stroke diagnosis?: No VTE Prior VTE?: No VTE Risk Level:: Medical - moderate - high VTE Device Contraindication: Treatment Not Indicated VTE Drug Contraindication: N/A - Med Ordered
[2022-08-13 15:29] LABS: Glucose, Whole Blood 135 mg/dL (60-115)
[2022-08-13 19:13] LABS: Glucose, Whole Blood 191 mg/dL (60-115)
[2022-08-14] VITALS (8 sets, daily range): BP systolic 126–162; BP diastolic 64–81; PULSE 61–107; RESP 16–19; TEMP 36.1–36.8; O2SAT 92–98
[2022-08-14] MEDS: 0.9 % Sodium Chloride Flush 3 ML SYRINGE IVFLUSH ×3 (00:09→14:18)
[2022-08-14] MEDS: Enoxaparin Sodium 40 MG/0.4 ML SYRINGE SUBCUT (02:53)
[2022-08-14] MEDS: Linezolid/D5W 600 MG/300 ML PIGGYBACK 150 MG IV ×2 (02:53→14:18)
[2022-08-14 07:11] LABS: Glucose, Whole Blood 132 mg/dL (60-115)
[2022-08-14] MEDS: HYDROmorphone HCl 0.5 MG/0.5 ML SYRINGE IVPUSH ×2 (08:35→15:43)
[2022-08-14] MEDS: Insulin Glargine,Hum.rec.anlog 100 UNIT/ML 10 ML VIAL 15 UNIT SUBCUT (08:35)
[2022-08-14] MEDS: Furosemide 40 MG TABLET PO (08:35)
[2022-08-14] MEDS: Clotrimazole 1 % Cream 15 GM TUBE 1 APPL TOPICAL ×2 (08:36→20:29)
[2022-08-14] MEDS: metFORMIN HCl 500 MG TABLET PO ×2 (08:36→16:53)
[2022-08-14] MEDS: levoFLOXacin/D5W 750 MG/150 ML PIGGYBACK 100 MG IV (08:36)
[2022-08-14] MEDS: Triamcinolone Acet 0.5 % Cream 15 GM TUBE 1 APPL TOPICAL ×2 (08:37→20:28)
[2022-08-14 11:14] LABS: Glucose, Whole Blood 205 mg/dL (60-115)
[2022-08-14] MEDS: Insulin Lispro 100 UNIT/ML 3 ML VIAL SUBCUT (12:03)
--- NOTE | 2022-08-14 12:45 | P.F2F_ITS ---
Service Date Service Date: 08/14/22 Encounter Date of encounter: 08/14/22 Reasons for Services Signs and symptoms assessed: leg weakness cellulitis Reason for physical therapy: home safety and mobility, therapeutic exercises, gait/transfer training, assess need for DME, ADL training and energy conservation MD Overseeing Care: Vianca Martinez Homebound: Leaving the home is medically contraindicated at this time without the asist of a device and/or another person due th the listed conditions above and below. Reason homebound: unsteady gait / fall risk, leg weakness, pain with ambulation, immunosuppression / infection risk and weakness related to hospital stay Certification: Based on the above findings, I certify that this patient is confined to the home and needs intermittent detention care, physical therapy and/or speech therapy, or continues to need occupational therapy. The patient is under my care, and I have initiated the establishment of the plan of care. The patient will be followed by a physician who will periodically review the plan of care.
--- NOTE | 2022-08-14 13:12 | PM.DS ---
DS: Providers Provider Date of Service: 08/14/22 Date of admission: 07/30/22 01:58 Date of discharge: 08/14/22 Primary care physician: Vianca Martinez MD Consults: 07/30/22 01:58 Consult to Infectious Diseases Routine Consulting Provider: Shannon Nelson Reason for consultation: rec cellulitis 08/01/22 08:10 Consult to Nephrology Routine Consulting Provider: Kedar Van Reason for consultation: yareli Has provider been notified: No DS: Diagnosis Discharge Diagnosis (1) YARELI (acute kidney injury): Status: Acute (2) Morbid obesity: Status: Acute (3) Bacteremia due to Pseudomonas: Status: Acute (4) Gram negative sepsis: Status: Acute (5) Cellulitis of leg, right: Status: Acute (6) New onset type 2 diabetes mellitus: Status: Acute DS: Summary Hospital Course Hospital Course: From the history and physical by Eb Golden, 07/30/22: 57-year-old female with a past medical history of cellulitis presented to the hospital today with a chief complaint of right leg pain and swelling.? Patient reports that for the past 2-3 when she has been having episodes of right leg cellulitis, has been on antibiotics, reports that she has been taking? doxycycline and augmenting since June. ? for past 1 day she noticed increased pain and swelling of her right leg associated chills.? Hence decided to come to the ER for further evaluation.? Denies any falls or injury.? Denies any chest pain or palpitations Denies any shortness of breath or dyspnea on exertion.? Denies any cough or sputum production.? Review of all other systems is negative except mentioned above ER course: Per ER team patient noted to have right leg warm, erythematous, tender concern for cellulitis- given IV vancomycin and Zosyn.? Admitted to the hospital for further management 57yo F with prior episodes of cellultis admitted for sepsis due to RLE cellulitis, found to have Pseudomonas bacteremia + new-onset DM2. ID was consulted. She was treated with cefepime, then levofloxacin, to which the Pseudomonas was sensitive. Sepsis and leukocytosis resolved. She was also given linezolid for Gram-positive coverage. Blood cultures cleared. She was discharged home on 7 more days of levofloxacin. Prerenal YARELI resolved after fluid resuscitation. She was found to have DM2 with A1c of 10.2 and was started on glipizide and metformin. She was discharged home with glucometer and supplies. Time Spent with Patient Time attestation: Total time spent providing and/or coordinating discharge services: 35 Discharge coordination time: Greater than 30 minutes Quality: Safe Use of Opioids Does Pt have an Active Cancer Diagnosis on the Problem List?: No Quality: Stroke Does the patient have a stroke diagnosis?: No Physical Exam Vital Signs: Vital Signs: Vital signs Temperature 98.5 F 08/15/22 07:14 Pulse Rate 96 08/15/22 10:44 Respiratory Rate 18 08/15/22 07:14 Blood Pressure 129/78 08/15/22 10:44 Pulse Oximetry 97 08/15/22 10:44 Oxygen Delivery Me thod 08/15/22 07:14 Oxygen Flow Rate 0.5 08/04/22 08:00 Gen: in no acute distress HEENT: sclera anicteric, moist mucus membranes Neck: supple Lungs: clear to auscultation bilaterally Heart: regular rate and rhythm, no murmurs Abd: soft, non-tender, non-distended, morbidly obese Ext: induration and erythema of RLE without any purulence or fluctuance, improved Skin: warm/well-perfused Neuro: alert and oriented x3, no focal findings Psych: appropriate affect DS: Data Data Completed and Pending Completed studies during hospitalization [Text1]: Laboratory Results WBC 8.0 X10*3/uL (4.8-10.8) 07/30/22 04:34 RBC 4.55 X10*6/uL (4.20-5.50) 07/30/22 04:34 Hgb 12.7 g/dl (12.0-16.0) 07/30/22 04:34 Hct 39.0 % (37.0-47.0) 07/30/22 04:34 MCV 85.7 fL (80.0-98.0) 07/30/22 04:34 MCH 27.9 pg (27.0-33.0) 07/30/22 04:34 MCHC 32.6 g/dl (31.0-35.0) 07/30/22 04:34 RDW 13.4 % (11.0-16.0) 07/30/22 04:34 Plt Count 219 X10*3/uL (160-400) 07/30/22 04:34 MPV 10.5 fL (9.4-12.3) 07/30/22 04:34 Immature Gran % (Auto) 0.4 % (0.0-0.4) 07/30/22 04:34 Neut % (Auto) 86.5 % (45-73) H 07/30/22 04:34 Lymph % (Auto) 6.4 % (20-40) L 07/30/22 04:34 Newberry % (Auto) 6.1 % (2-11) 07/30/22 04:34 Eos % (Auto) 0.3 % (0-4) 07/30/22 04:34 Baso % (Auto) 0.3 % (0-2) 07/30/22 04:34 Lymph # (Auto) 0.5 X10*3/uL (1.2-4.9) L 07/30/22 04:34 Newberry # (Auto) 0.5 X10*3/uL (0.1-1.2) 07/30/22 04:34 Eos # (Auto) 0.0 X10*3/uL (0.0-0.4) 07/30/22 04:34 Baso # (Auto) 0.0 X10*3/uL (0.0-0.2) 07/30/22 04:34 Abs Immat Gran (auto) 0.03 X10*3/uL (0.00-0.03) 07/30/22 04:34 Absolute Neuts (auto) 6.9 x10*3/uL (2.0-8.3) 07/30/22 04:34 Absolute Nucleated RBC 0.000 X10*3/uL (0.0-0.012) 07/30/22 04:34 Nucleated RBC % (auto) 0.0 /100WBC (0.0-0.2) 07/30/22 04:34 Sodium 140 mmol/L (135-145) 08/07/22 05:31 Potassium 4.0 mmol/L (3.3-5.1) 08/07/22 05:31 Chloride 98 mmol/L (96-108) 08/07/22 05:31 Carbon Dioxide 28 mmol/L (22-29) 08/07/22 05:31 Anion Gap 18 (12-20) 08/07/22 05:31 BUN 21 mg/dL (9-16) H D 08/07/22 05:31 Creatinine 0.85 mg/dL (0.5-1.4) 08/07/22 05:31 Estim Creat Clear Calc 104.9 08/07/22 05:31 Estimated GFR > 60 08/07/22 05:31 POC Glucose 205 mg/dL (60-115) H 08/14/22 11:05 Random Glucose 298 mg/dL (60-115) H 08/07/22 05:31 Estimat Average Glucose 246 mg/dL 08/09/22 05:47 Hemoglobin A1c % 10.2 % 08/09/22 05:47 Lactic Acid 2.0 mmol/L (0.5-2.0) 07/30/22 01:23 Calcium 8.3 mg/dL (8.4-10.2) L 08/07/22 05:31 Total Bilirubin 0.8 mg/dL (0.0-1.0) 07/30/22 01:23 AST 17 U/L (5-31) 07/30/22 01:23 ALT 24 U/L (0-31) 07/30/22 01:23 Alkaline Phosphatase 106 U/L (39-117) 07/30/22 01:23 Total Protein 7.4 g/dL (6.5-8.0) 07/30/22 01:23 Albumin 4.3 g/dL (3.5-5.0) 07/30/22 01:23 Urine Color Yellow 08/01/22 11:56 Urine Appearance Cloudy 08/01/22 11:56 Urine pH 5.5 (5.0-9.0) 08/01/22 11:56 Ur Specific Sunol 1.015 (1.005-1.025) 08/01/22 11:56 Urine Protein 30 (1+) mg/dL (Neg-Trace) H 08/01/22 11:56 Urine Glucose (UA) 250 mg/dL (Negative) H 08/01/22 11:56 Urine Ketones Negative mg/dL (Negative) 08/01/22 11:56 Urine Blood Negative (Negative) 08/01/22 11:56 Urine Nitrite Negative (Negative) 08/01/22 11:56 Ur Leukocyte Esterase Negative (Negative) 08/01/22 11:56 Urine RBC 0-2 /HPF (0-2) 08/01/22 11:56 Urine WBC 0-5 /HPF (0-5) 08/01/22 11:56 Ur Squamous Epith Cells 0-2 /HPF (0-2) 08/01/22 11:56 Urine Bacteria None Seen (None Seen) 08/01/22 11:56 Hyaline Casts 3-5 /LPF (0-2) 08/01/22 11:56 Urine Eosinophils % 0.0 % 08/01/22 11:56 U Random Total Protein 46 mg/dL (<12) H 08/01/22 11:56 Urine Creatinine 80.92 mg/dL 08/01/22 11:56 Vancomycin Trough 4.7 mcg/mL (10.0-20.0) L 07/31/22 13:21 Proteinase 3 (PR3) Ab <1.0 AI 08/01/22 11:43 Myeloperoxidase Ab <1.0 AI 08/01/22 11:43 Complement C3 139 mg/dL (83-193) 08/01/22 11:43 Complement C4 30 mg/dL (15-57) 08/01/22 11:43 COVID-19 ([facility]) Negative (Negative) 07/30/22 02:25 COVID-19 Clin Com See Note 07/30/22 02:25 Hep Bs Antigen Negative (Negative) 08/01/22 11:43 Hep Bs Antibody NONREACTIVE (Nonreactive) 08/01/22 11:43 Hep B Core Total Ab Nonreactive (Nonreactive) 08/01/22 11:43 Hepatitis C Ab (EIA) Nonreactive (Nonreactive) 08/01/22 11:43 Impressions Venous Duplex 07/30/22 08:56 IMPRESSION: No DVT demonstrated in the bilateral lower extremity. Right peroneal veins not well visualized. Small right العراقي's cyst. Right lower leg edema. Discharge Plan Discharge Patient Disposition: Home Health Service Discharge Diagnosis: sepsis due to Pseudomonas bacteremia/cellulitis, new-onset diabetes mellitus Referrals: Vianca Martinez MD [Primary Care Provider] - 1 Week Discharge Medications: New metformin 500 mg Tablet 500 mg PO BIDWM Qty: 60 0RF levofloxacin 750 mg tablet 750 mg PO DAILY Qty: 7 0RF (DME) FreeStyle Lite Strips Strip Qty: 100 0RF Rx Instructions: Test four times a day or as directed. (DME) blood-glucose meter [FreeStyle Lite Meter] Kit Qty: 1 0RF Rx Instructions: As Directed alcohol swabs Pads, Medicated 1 pad TOPICAL QIDACHS Qty: 100 0RF Rx Instructions: Use four times a day or as directed. (DME) lancets [FreeStyle Lancets] 28 gauge misc Qty: 100 0RF Rx Instructions: Test four times a day or as directed. glipizide 5 mg Tablet 5 mg PO BIDWM Qty: 60 0RF Continued furosemide 40 mg tablet 1 tab PO DAILY terbinafine HCl 1 % cream 1 appl topical BID triamcinolone acetonide 0.5 % cream 1 appl topical BID Discontinued terbinafine HCl 250 mg tablet 1 tab PO DAILY doxycycline hyclate 100 mg tablet 1 tab PO BID Discharge Orders: Discharge Order (Routine); Ordered 08/15/22 Ordered By: Alejo Tinsley Diet: Diabetic diet Activity on Discharge: As tolerated Stand Alone Forms: Patient Portal Discharge page Care Plan Goals: recovery from infection prevention of diabetic complications Health Concerns: sepsis due to Pseudomonas bacteremia/cellulitis, new-onset diabetes mellitus Plan of Treatment: take levofloxacin 750 mg daily for 7 days elevate the affected leg take metformin 500 mg twice daily take glipizide 5 mg twice daily with breakfast and dinner check your blood glucose in the morning before breakfast; goal is 80-140. check your blood glucose 2 hours after beginning your largest meal of the day; goal is 80-200. avoid sugar and simple starches Please follow up with your primary care doctor within 1 week. Return to the hospital if you experience recurrent or worsening symptoms. Assessment: See Discharge Summary. Patient Instructions: Hypoglycemia in a Person with Diabetes (DC), Type 2 Diabetes in Adults: New Diagnosis (DC), Managing Diabetes During Sick Days (DC), Diabetic Hyperglycemia (DC), Diabetes and Your Skin (DC), What to Do if Your Blood Sugar is Low (DC), Diabetes and Exercise (DC)
--- NOTE | 2022-08-14 14:40 | P.PNIM_ITS ---
Subjective Subjective Date of Service: 08/14/22 Interval History: leg swelling/redness no fever Review of Systems Review of Systems: Yes all other systems are reviewed and are negative Physical Exam Vital Signs: Vital Signs: Last Vital Signs Temp 98.2 F 08/14/22 12:00 Pulse 61 08/14/22 12:00 Resp 19 08/14/22 06:58 BP 144/77 H 08/14/22 12:00 Pulse Ox 95 08/14/22 12:00 O2 Del Method 08/14/22 12:00 O2 Flow Rate 0.5 08/04/22 08:00 BMI result Body Mass Index 45.7 Gen: in no acute distress HEENT: sclera anicteric, moist mucus membranes Neck: supple Lungs: clear to auscultation bilaterally Heart: regular rate and rhythm, no murmurs Abd: soft, non-tender, non-distended, morbidly obese Ext: induration and erythema of RLE without any purulence or fluctuance Skin: warm/well-perfused Neuro: alert and oriented x3, no focal findings Psych: appropriate affect Objective Data Active Medications Acetaminophen (Acetaminophen 325 Mg Tablet) 650 mg PO Q6H PRN PRN Reason: Pain, Mild (Pain Scale 1-3) Last Admin: 08/10/22 08:21 Dose: 650 mg Documented By: RACHANA Clotrimazole (Clotrimazole 1 % Cream 15 Gm Tube) 1 appl TOPICAL BID [facility] Last Admin: 08/14/22 08:36 Dose: 1 appl Documented By: JAYASHREE Dextrose (Dextrose 50 % 25 Gm/50 Ml Syringe) 25 gm IVPUSH Q15M PRN; Protocol PRN Reason: per Hypoglycemia Standing Ord. Enoxaparin Sodium (Enoxaparin Sodium 40 Mg/0.4 Ml Syringe) 40 mg SUBCUT Q24H [facility] Last Admin: 08/14/22 02:53 Dose: 40 mg Documented By: RASHEL Furosemide (Furosemide 40 Mg Tablet) 40 mg PO DAILY [facility]; Protocol Last Admin: 08/14/22 08:35 Dose: 40 mg Documented By: JAYASHREE Glucose (Glucose Gel 15 Gm Gel..Gram.) 15 gm PO Q15M PRN; Protocol PRN Reason: per Hypoglycemia Standing Ord. Hydromorphone HCl (Hydromorphone Hcl 0.5 Mg/0.5 Ml Syringe) 0.5 mg IVPUSH Q6H PRN; Protocol PRN Reason: Breakthrough Pain Last Admin: 08/14/22 08:35 Dose: 0.5 mg Documented By: JAYASHREE Linezolid (Zyvox/D5w) 600 mg in 300 mls @ 300 mls/hr IV Q12H [facility] Last Admin: 08/14/22 14:18 Dose: 150 mls/hr Documented By: RADHA Levofloxacin (Levaquin) 750 mg in 150 mls @ 100 mls/hr IV Q24H [facility] Last Infusion: 08/14/22 10:52 Dose: 0 mls/hr Documented By: JAYASHREE Insulin Glargine (Insulin Glargine,Hum.Rec.Anlog 100 Unit/Ml 10 Ml Vial) 15 unit SUBCUT DAILY [facility] Last Admin: 08/14/22 08:35 Dose: 15 unit Documented By: JAYASHREE Insulin Human Lispro (Insulin Lispro 100 Unit/Ml 3 Ml Vial) 0 unit SUBCUT QIDACHS [facility]; Protocol Last Admin: 08/14/22 12:03 Dose: 4 unit Documented By: RADHA Melatonin (Melatonin 3 Mg Tablet) 6 mg PO BEDTIME PRN PRN Reason: Insomnia Last Admin: 08/10/22 20:39 Dose: 6 mg Documented By: SANTOSH Metformin HCl (Metformin Hcl 500 Mg Tablet) 500 mg PO BIDWM [facility] Last Admin: 08/14/22 08:36 Dose: 500 mg Documented By: JAYASHREE Senna (Sennosides 8.6 Mg Tablet) 17.2 mg PO BEDTIME PRN PRN Reason: constipation Sodium Chloride (0.9 % Sodium Chloride Flush 3 Ml Syringe) 3 ml IVFLUSH QSHIFT [facility] Last Admin: 08/14/22 14:18 Dose: 3 ml Documented By: RADHA Triamcinolone Acetonide (Triamcinolone Acet 0.5 % Cream 15 Gm Tube) 1 appl TOPICAL BID [facility]; Protocol Last Admin: 08/14/22 08:37 Dose: 1 appl Documented By: JAYASHREE Labs CBC & Chem 7: 07/30/22 04:34 08/07/22 05:31 Labs: Laboratory Results - last 24 hr 09/08/13/22 08/14/22 15:15 19:08 06:57 POC Glucose 135 H 191 H 132 H 08/14/22 11:05 POC Glucose 205 H Microbiology Microbiology Results: Microbiology 08/12/22 08:27 Blood Culture - Preliminary Blood - Venous No growth after 48 hours. 08/12/22 08:27 Blood Culture - Preliminary Blood - Venous No growth after 48 hours. Assessment and Plan (1) YARELI (acute kidney injury): Status: Acute (2) Morbid obesity: Status: Acute (3) Bacteremia due to Pseudomonas: Status: Acute Plan hospital d#16 57yo F with prior episodes of cellultiis admitted for RLE cellulitis, found to have Pseudomonas bacteremia + new-onset DM2 # sepsis due to RLE cellultis and Pseudomonas bacteremia - sepsis resolved - WBC normalized - check BCx for clearance - on levofloxacin d#06/30 (s/p cefepime x 6d) - on linezolid for Gm+ coverage, d# - no DVT on venous duplex - continue oxycoodne + hydromorphone for pain - continue furosemide - continue steroid creams - ID following # YARELI - likely prerenal, resolved s/p IV fluids # morbid obesity - weight loss # DM2, new-onset - Lantus + correction-dose lispro- DM teaching + VNA services- will look into coverage for long-acting insulin - started MTF # VTE ppx: LMWH # dispo: PT consult- home with VNA recommended In my clinical judgment, the patient requires continued hospitalization for the following reasons: IV ABX Quality Stroke Does the patient have a stroke diagnosis?: No VTE Prior VTE?: No VTE Risk Level:: Medical - moderate - high VTE Device Contraindication: Treatment Not Indicated VTE Drug Contraindication: N/A - Med Ordered
--- NOTE | 2022-08-14 14:58 | MHC.CM.PN ---
PATIENT'S INSURANCE DOES NOT HAVE A SNF,VNA, OR MEDICATION BENEFIT. PATIENT PLANS TO OBTAIN [employer] PRODUCT. COSTS FOR LONG-ACTING INSULIN PEN GIVEN TO PATIENT WHO IS UNABLE TO AFFORD HER DISCOUNT MEDICATION CARD IS NOT SUFFICIENT TO PAY FOR THIS. ($[phone]) PATIENT TO CALL JENNIFER AT [facility], WHERE ONCE SHE ESTABLISHES AND SEES A NEW PCP, HER OUT OF POCKET EXPENSE WILL BE LESS THAN $15.
[2022-08-14 15:22] LABS: Glucose, Whole Blood 105 mg/dL (60-115)
[2022-08-14 19:10] LABS: Glucose, Whole Blood 147 mg/dL (60-115)
[2022-08-15] MEDS: HYDROmorphone HCl 0.5 MG/0.5 ML SYRINGE IVPUSH (01:09)
[2022-08-15] MEDS: Enoxaparin Sodium 40 MG/0.4 ML SYRINGE SUBCUT (01:09)
[2022-08-15] MEDS: Linezolid/D5W 600 MG/300 ML PIGGYBACK 300 MG IV (01:09)
[2022-08-15 03:15] VITALS: BP 140/60; PULSE 83; RESP 18; TEMP 36.1; O2SAT 100
[2022-08-15 07:14] VITALS: BP 129/78; PULSE 96; RESP 18; TEMP 36.9; O2SAT 97
[2022-08-15 07:20] LABS: Glucose, Whole Blood 113 mg/dL (60-115)
[2022-08-15] MEDS: Furosemide 40 MG TABLET PO (07:35)
[2022-08-15] MEDS: metFORMIN HCl 500 MG TABLET PO (07:35)
[2022-08-15] MEDS: Triamcinolone Acet 0.5 % Cream 15 GM TUBE 1 APPL TOPICAL (07:36)
[2022-08-15] MEDS: Insulin Glargine,Hum.rec.anlog 100 UNIT/ML 10 ML VIAL 15 UNIT SUBCUT (07:36)
[2022-08-15] MEDS: levoFLOXacin/D5W 750 MG/150 ML PIGGYBACK 100 MG IV (07:36)
[2022-08-15] MEDS: 0.9 % Sodium Chloride Flush 3 ML SYRINGE IVFLUSH (07:37)
[2022-08-15] MEDS: Clotrimazole 1 % Cream 15 GM TUBE 1 APPL TOPICAL (07:37)
--- NOTE | 2022-08-15 08:42 | MHC.CM.PN ---
WITH PATIENT'S PERMISSION, FACE-SHEET FAXED TO [employer] TO ASSIST WITH INSURANCE BENEFITS.
[2022-08-15 10:08] LABS: Estimated Glomerular Filt Rate > 60
[2022-08-15 10:44] VITALS: BP 129/78; PULSE 96; O2SAT 97
--- NOTE | 2022-08-15 11:12 | MHC.CM.PN ---
HOME WITH FAMILY. RN AWARE OF PLAN
[2022-08-15 11:46] VITALS: BP 135/70; PULSE 101; RESP 18; TEMP 36; O2SAT 98
[2022-08-15 11:52] LABS: Glucose, Whole Blood 138 mg/dL (60-115)
== END 2022-08-15 14:48 | disposition home or self-care (01) | DRG 872 ==
LOC: HO.ED 07-30 01:59 → HO.EDOVER 07-30 02:08 → HO.S3 07-31 18:11
PROVIDERS: Hospitalist; Internal Medicine Nephrology; Admitting Provider Hospitalist; Emergency Provider Internal Medicine; PCP Internal Medicine; Visit Provider Family Medicine
DX: A41.52 Sepsis due to Pseudomonas (principal); L03.115 Cellulitis of right lower limb; Z68.42 Body mass index [BMI] 45.0-49.9, adult; N17.9 Acute kidney failure, unspecified; K59.03 Drug induced constipation; T40.605A Adverse effect of unspecified narcotics, initial encounter; E66.01 Morbid (severe) obesity due to excess calories; E11.65 Type 2 diabetes mellitus with hyperglycemia; Z20.822 Contact with and (suspected) exposure to COVID-19; Z79.899 Other long term (current) drug therapy
CPT/HCPCS: 36415; 80048; 80053; 80202; 81001; 82565; 82947; 83036; 83605; 84156; 85025; 86021; 86160; 86704; 86706; 86803; 87040; 87077; 87186; 87205; 87340; 87635; 89190; 93970; 97110; 97116; 97162; 99285; J0692; J0696; J1170; J1650; J1885; J1956; J2020; J2543; J3370

== ENCOUNTER 2022-09-09 14:46 | Outpatient (REF) | payer OTHER, SELFPAY | END 2022-09-09 14:47 | disposition home or self-care (01) | LOC: HO.LAB 14:46 | PROVIDERS: PCP Internal Medicine; Visit Provider Internal Medicine | DX: R78.81 Bacteremia (principal); B96.5 Pseudomonas (aeruginosa) (mallei) (pseudomallei) as the cause of diseases classified elsewhere | CPT/HCPCS: 87040 ==

== ENCOUNTER 2022-11-19 09:22 | Outpatient (REF) | payer MEDICAID, SELFPAY ==
[2022-11-19 10:08] LABS: Estimated Average Glucose 117 mg/dL; Hemoglobin A1c % 5.7 %
[2022-11-19 11:20] LABS: Alanine Aminotransferase 12 U/L (0-31); Albumin Level 4.1 g/dL (3.5-5.0); Alkaline Phosphatase 99 U/L (39-117); Anion Gap 11 (12-20); Aspartate Amino Transferase 13 U/L (5-31); Bilirubin Total 0.5 mg/dL (0.0-1.0); Blood Urea Nitrogen 15 mg/dL (9-16); Calcium 9.7 mg/dL (8.4-10.2); Carbon Dioxide 28 mmol/L (22-29); Chloride 105 mmol/L (96-108); Cholesterol 206 mg/dL; Estimated Glomerular Filt Rate 51; Glucose Random 124 mg/dL (60-115); HDL Cholesterol 51 mg/dL; LDL Cholesterol Calculated 135 mg/dl; Potassium 4.4 mmol/L (3.3-5.1); Sodium 140 mmol/L (135-145); Total Protein 6.7 g/dL (6.5-8.0); Triglycerides 104 mg/dL
[2022-11-19 11:43] LABS: Creatinine Urine 87.99 mg/dL; Microalbumin Urine < 5.0 mg/L
== END 2022-11-19 09:23 | disposition home or self-care (01) ==
LOC: HO.LAB 09:22
PROVIDERS: PCP Internal Medicine; Visit Provider Internal Medicine
DX: E11.9 Type 2 diabetes mellitus without complications (principal); L03.119 Cellulitis of unspecified part of limb
CPT/HCPCS: 36415; 80053; 80061; 82043; 83036

== ENCOUNTER 2023-02-17 10:08 | Outpatient (REF) | payer SELFPAY ==
[2023-02-17 11:56] LABS: Estimated Average Glucose 143 mg/dL; Hemoglobin A1c % 6.6 %
[2023-02-17 12:20] LABS: Alanine Aminotransferase 18 U/L (0-31); Alkaline Phosphatase 95 U/L (39-117); Anion Gap 16 (12-20); Aspartate Amino Transferase 18 U/L (5-31); Blood Urea Nitrogen 16 mg/dL (9-16); Calcium 9.3 mg/dL (8.4-10.2); Carbon Dioxide 29 mmol/L (22-29); Chloride 102 mmol/L (96-108); Cholesterol 141 mg/dL; Estimated Glomerular Filt Rate 49; Glucose Random 106 mg/dL (60-115); HDL Cholesterol 50 mg/dL; LDL Cholesterol Calculated 74 mg/dl; Potassium 4.2 mmol/L (3.3-5.1); Sodium 143 mmol/L (135-145); Total Protein 6.4 g/dL (6.5-8.0); Triglycerides 86 mg/dL
== END 2023-02-17 10:09 | disposition home or self-care (01) ==
LOC: HO.LAB 10:08
PROVIDERS: PCP Internal Medicine; Visit Provider Internal Medicine
DX: E11.9 Type 2 diabetes mellitus without complications (principal); E78.00 Pure hypercholesterolemia, unspecified; I10 Essential (primary) hypertension
CPT/HCPCS: 36415; 80053; 80061; 83036

== ENCOUNTER 2023-05-19 09:13 | Outpatient (REF) | payer SELFPAY | END 2023-05-19 09:14 | disposition home or self-care (01) | LOC: HO.LAB 09:13 | PROVIDERS: PCP Internal Medicine; Visit Provider Internal Medicine | DX: E11.9 Type 2 diabetes mellitus without complications (principal); E78.00 Pure hypercholesterolemia, unspecified; I10 Essential (primary) hypertension | CPT/HCPCS: 36415; 80053; 83036 ==

== ENCOUNTER 2023-08-20 08:11 | Outpatient (REF) | payer SELFPAY ==
[2023-08-20 08:46] LABS: MANUAL DIFF FLAG NO
[2023-08-20 09:00] LABS: Basophils Absolute Auto 0.1 X10*3/uL (0.0-0.2); Eosinophils Absolute Auto 0.4 X10*3/uL (0.0-0.4); Eosinophils Percent Auto 5.4 % (0-4); Hematocrit 39.4 % (37.0-47.0); Hemoglobin 12.4 g/dl (12.0-16.0); Imm Gran Abs Auto 0.02 X10*3/uL (0.00-0.03); Imm Gran Pct Auto 0.3 % (0.0-0.4); Lymphocytes Absolute Auto 2.6 X10*3/uL (1.2-4.9); Lymphocytes Percent Auto 32.9 % (20-40); Mean Corpuscular HGB Conc 31.5 g/dl (31.0-35.0); Mean Corpuscular Hemoglobin 28.2 pg (27.0-33.0); Mean Corpuscular Volume 89.7 fL (80.0-98.0); Mean Platelet Volume 10.5 fL (9.4-12.3); Monocytes Absolute Auto 0.7 X10*3/uL (0.1-1.2); Monocytes Percent Auto 8.9 % (2-11); Neutrophils Percent Auto 51.5 % (45-73); Platelet Count 265 X10*3/uL (160-400); Red Blood Count 4.39 X10*6/uL (4.20-5.50); Red Cell Distribution Width 13.4 % (11.0-16.0); White Blood Count 7.8 X10*3/uL (4.8-10.8)
[2023-08-20 09:08] LABS: Estimated Average Glucose 134 mg/dL; Hemoglobin A1c % 6.3 % (<6.0)
[2023-08-20 09:51] LABS: Vitamin B12 525 pg/mL (200-900)
[2023-08-20 09:55] LABS: Creatinine Urine 117.67 mg/dL; Microalbumin Urine < 5.0 mg/L
[2023-08-20 13:22] LABS: Alanine Aminotransferase 18 U/L (0-31); Albumin Level 4.1 g/dL (3.5-5.0); Alkaline Phosphatase 88 U/L (39-117); Anion Gap 15 (12-20); Aspartate Amino Transferase 17 U/L (5-31); Bilirubin Total 0.7 mg/dL (0.0-1.0); Blood Urea Nitrogen 24 mg/dL (9-16); Calcium 10.1 mg/dL (8.4-10.2); Carbon Dioxide 28 mmol/L (22-29); Chloride 104 mmol/L (96-108); Cholesterol 132 mg/dL (<200); Estimated Glomerular Filt Rate 51; Glucose Random 131 mg/dL (60-115); HDL Cholesterol 51 mg/dL (>40); LDL Cholesterol Calculated 69 mg/dL (<100); Potassium 4.9 mmol/L (3.3-5.1); Sodium 142 mmol/L (135-145); Total Protein 6.7 g/dL (6.5-8.0); Triglycerides 63 mg/dL (<150)
== END 2023-08-20 08:12 | disposition home or self-care (01) ==
LOC: HO.LAB 08:11
PROVIDERS: PCP Internal Medicine; Visit Provider Internal Medicine
DX: E11.9 Type 2 diabetes mellitus without complications (principal); E78.00 Pure hypercholesterolemia, unspecified; I10 Essential (primary) hypertension; I89.0 Lymphedema, not elsewhere classified
CPT/HCPCS: 36415; 80053; 80061; 82570; 82607; 83036; 85025

== ENCOUNTER 2023-12-29 14:02 | Outpatient (REF) | payer SELFPAY ==
[2023-12-29 16:00] LABS: Estimated Average Glucose 137 mg/dL; Hemoglobin A1c % 6.4 % (<6.0)
[2023-12-29 16:12] LABS: Alanine Aminotransferase 18 U/L (0-31); Albumin Level 4.2 g/dL (3.5-5.0); Alkaline Phosphatase 95 U/L (39-117); Anion Gap 15 (12-20); Aspartate Amino Transferase 17 U/L (5-31); Bilirubin Total 0.3 mg/dL (0.0-1.0); Blood Urea Nitrogen 19 mg/dL (9-16); Calcium 9.9 mg/dL (8.4-10.2); Carbon Dioxide 30 mmol/L (22-29); Chloride 104 mmol/L (96-108); Estimated Glomerular Filt Rate 56; Glucose Random 79 mg/dL (60-115); Potassium 4.7 mmol/L (3.3-5.1); Sodium 144 mmol/L (135-145); Total Protein 7.2 g/dL (6.5-8.0)
== END 2023-12-29 14:03 | disposition home or self-care (01) ==
LOC: HO.LAB 14:02
PROVIDERS: PCP Internal Medicine; Visit Provider Internal Medicine
DX: Z00.00 Encounter for general adult medical examination without abnormal findings (principal); E11.9 Type 2 diabetes mellitus without complications; I10 Essential (primary) hypertension; E78.00 Pure hypercholesterolemia, unspecified
CPT/HCPCS: 36415; 80053; 83036

== ENCOUNTER 2024-07-28 11:38 | Outpatient (REF) | payer MEDICAID, SELFPAY ==
[2024-07-28 12:26] LABS: Estimated Average Glucose 140 mg/dL; Hemoglobin A1c % 6.5 % (<6.0)
[2024-07-28 12:49] LABS: Alanine Aminotransferase 29 U/L (0-31); Albumin Level 4.2 g/dL (3.5-5.0); Alkaline Phosphatase 102 U/L (39-117); Anion Gap 15 (12-20); Aspartate Amino Transferase 19 U/L (5-31); Bilirubin Total 0.5 mg/dL (0.0-1.0); Blood Urea Nitrogen 19 mg/dL (9-16); Calcium 9.9 mg/dL (8.4-10.2); Carbon Dioxide 27 mmol/L (22-29); Chloride 105 mmol/L (96-108); Estimated Glomerular Filt Rate 49; Glucose Random 122 mg/dL (60-115); Potassium 4.6 mmol/L (3.3-5.1); Sodium 142 mmol/L (135-145)
== END 2024-07-28 11:39 | disposition home or self-care (01) ==
LOC: HO.LAB 11:38
PROVIDERS: PCP Internal Medicine; Visit Provider Internal Medicine
DX: E11.9 Type 2 diabetes mellitus without complications (principal); I10 Essential (primary) hypertension; M25.572 Pain in left ankle and joints of left foot; Z68.41 Body mass index [BMI] 40.0-44.9, adult
CPT/HCPCS: 36415; 80053; 83036

== ENCOUNTER 2024-10-13 10:51 | Outpatient (REF) | payer MEDICAID, SELFPAY ==
--- NOTE | ~2024-10-13 | MM_ITS ---
EXAMINATION: MM SCREENING DIGITAL BREAST TOMOSYNTHESIS, BILATERAL CLINICAL INFORMATION: Screening. Asymptomatic. COMPARISON: Mammography: Baseline. TECHNIQUE: Digital breast mammography with tomosynthesis is performed in both the craniocaudal and mediolateral oblique views along with computer-aided detection (CAD). FINDINGS: The breasts are heterogeneously dense, which may obscure small masses (ACR BI-RADS breast composition Category c). Left: There are no significant masses, abnormal calcifications, or other abnormalities. Right: Focal asymmetry upper outer breast anterior depth. Lateral asymmetry on CC view image 2 middle to posterior depth. No suspicious calcifications or other abnormal findings. MM/MM tomosynthesis screening BI IMPRESSION: Additional imaging is recommended ASSESSMENT: BI-RADS BI-RADS 0 - Incomplete: Needs additional Imaging. RECOMMENDATION: 1. Additional views of the right breast 2. Targeted ultrasound if warranted after review of the additional views. 3. Radiology department staff will contact the patient for additional imaging. Additional Imaging required This examination should not preclude the clinical evaluation of a suspicious palpable abnormality. This patient's information was entered into a reminder system with a target due date for their next mammogram. Electronically signed by: Karmen Damon DO 10/22/2024 09:27 AM IRMA
== END 2024-10-13 10:52 | disposition home or self-care (01) ==
LOC: HO.MAMMO 10:51
PROVIDERS: PCP Internal Medicine; Visit Provider Internal Medicine
DX: Z12.31 Encounter for screening mammogram for malignant neoplasm of breast (principal)
CPT/HCPCS: 77063; 77067

== ENCOUNTER → 2024-10-13 11:15 | Outpatient (BNV) | payer MEDICAID, SELFPAY | PROVIDERS: PCP Internal Medicine; Visit Provider Internal Medicine | DX: Z12.31 Encounter for screening mammogram for malignant neoplasm of breast (principal) | CPT/HCPCS: 77063; 77067 ==

== ENCOUNTER 2024-11-26 09:47 | Outpatient (REF) | payer MEDICAID, SELFPAY ==
[2024-11-26 10:09] LABS: MANUAL DIFF FLAG NO
[2024-11-26 11:09] LABS: Basophils Absolute Auto 0.1 X10*3/uL (0.0-0.2); Basophils Percent Auto 1.1 % (0-2); Eosinophils Absolute Auto 0.4 X10*3/uL (0.0-0.4); Hematocrit 40.4 % (37.0-47.0); Hemoglobin 13.1 g/dl (12.0-16.0); Imm Gran Abs Auto 0.02 X10*3/uL (0.00-0.03); Imm Gran Pct Auto 0.3 % (0.0-0.4); Lymphocytes Absolute Auto 2.2 X10*3/uL (1.2-4.9); Lymphocytes Percent Auto 30.6 % (20-40); Mean Corpuscular HGB Conc 32.4 g/dl (31.0-35.0); Mean Corpuscular Hemoglobin 28.5 pg (27.0-33.0); Mean Platelet Volume 10.5 fL (9.4-12.3); Monocytes Absolute Auto 0.6 X10*3/uL (0.1-1.2); Monocytes Percent Auto 8.6 % (2-11); Neutrophils Absolute Auto 3.8 x10*3/uL (2.0-8.3); Neutrophils Percent Auto 54.4 % (45-73); Platelet Count 279 X10*3/uL (160-400); Red Blood Count 4.59 X10*6/uL (4.20-5.50); Red Cell Distribution Width 13.4 % (11.0-16.0); White Blood Count 7.1 X10*3/uL (4.8-10.8)
[2024-11-26 11:38] LABS: Estimated Average Glucose 157 mg/dL; Hemoglobin A1C 185.2421 umol/L; Hemoglobin A1c % 7.1 % (<6.0); Total Hemoglobin (HGBA1C) 3431.0021 umol/L
[2024-11-26 12:16] LABS: Creatinine Urine 87.26 mg/dL; Microalbumin Urine < 5.0 mg/L
[2024-11-26 12:19] LABS: Alanine Aminotransferase 39 U/L (0-31); Alkaline Phosphatase 98 U/L (39-117); Anion Gap 12 (12-20); Aspartate Amino Transferase 27 U/L (5-31); Bilirubin Total 0.5 mg/dL (0.0-1.0); Blood Urea Nitrogen 17 mg/dL (9-16); Calcium 9.2 mg/dL (8.4-10.2); Carbon Dioxide 27 mmol/L (22-29); Chloride 109 mmol/L (96-108); Cholesterol 131 mg/dL (<200); Estimated Glomerular Filt Rate 48; Glucose Random 167 mg/dL (60-115); HDL Cholesterol 51 mg/dL (>40); LDL Cholesterol Calculated 67 mg/dL (<100); Potassium 4.1 mmol/L (3.3-5.1); Sodium 144 mmol/L (135-145); Total Protein 6.8 g/dL (6.5-8.0); Triglycerides 69 mg/dL (<150)
== END 2024-11-26 09:48 | disposition home or self-care (01) ==
LOC: HO.LAB 09:47
PROVIDERS: PCP Internal Medicine; Visit Provider Internal Medicine
DX: Z00.00 Encounter for general adult medical examination without abnormal findings (principal); I10 Essential (primary) hypertension; E78.00 Pure hypercholesterolemia, unspecified; E11.9 Type 2 diabetes mellitus without complications
CPT/HCPCS: 36415; 80053; 80061; 82043; 82570; 83036; 85025

== ENCOUNTER 2024-12-08 12:47 | Outpatient (REF) | payer MEDICAID, SELFPAY ==
--- NOTE | ~2024-12-08 | US_ITS ---
EXAMINATION: MM DIAGNOSTIC DIGITAL BREAST TOMOSYNTHESIS, RIGHT Limited right breast ultrasound. CLINICAL INFORMATION: Call back from baseline screening for focal asymmetry in the upper outer right breast. COMPARISON: Mammography: Comparison is made to mammography October 13, 2024. TECHNIQUE: Digital breast tomosynthesis is performed in both the craniocaudal and mediolateral oblique views along with computer-aided detection (CAD). Synthesized 2D images are generated from the tomosynthesis. Limited right breast ultrasound. FINDINGS: The breasts are heterogeneously dense, which may obscure small masses (ACR BI-RADS breast composition Category c). Focal asymmetry in the upper outer breast persist on additional imaging projections. No suspicious calcifications or other abnormal findings. Targeted color Doppler ultrasound in the upper outer breast scanning at 10:00 5 cm from nipple demonstrates a hypoechoic irregular solid mass measuring 5 x 8 x 4 mm. This is a probable correlate for the focal asymmetry on mammography. US/US breast RT limited mamm only IMPRESSION: Hypoechoic solid mass at 10:00 5 cm from the nipple. Recommend ultrasound-guided core needle biopsy at this time for confirmation. The findings and recommendations were discussed with the patient the procedure will be scheduled. ASSESSMENT: BI-RADS BI-RADS 4 - Suspicious finding RECOMMENDATION: Biopsy recommended Results were discussed with the patient at time of visit. This patient's information was entered into a reminder system with a target due date for their next mammogram. Electronically signed by: Karmen Damon DO 12/08/2024 02:35 PM [facility] Workstation: [id number]
== END 2024-12-08 12:48 | disposition home or self-care (01) ==
LOC: HO.MAMMO 12:47
PROVIDERS: PCP Internal Medicine; Visit Provider Internal Medicine
DX: N64.89 Other specified disorders of breast (principal)
CPT/HCPCS: 76642; 77061; 77065

== ENCOUNTER → 2024-12-08 13:00 | Outpatient (BNV) | payer MEDICAID, SELFPAY | PROVIDERS: PCP Internal Medicine; Visit Provider Internal Medicine | DX: N63.11 Unspecified lump in the right breast, upper outer quadrant (principal); R92.331 Mammographic heterogeneous density, right breast | CPT/HCPCS: 76642; 77061; 77065 ==

== ENCOUNTER 2025-01-04 10:24 | Outpatient (AMB) | payer MEDICAID, SELFPAY ==
--- NOTE | 2025-01-04 10:35 | MHC.OFFVIS ---
Vital Signs 01/04/25 10:42 Height 5 ft 7 in Weight 287 lb BMI 44.9 BP 136/62 Blood Pressure Location Lt brachial Position Sitting Pulse 91 Intake Visit Reasons: US Biopsy, Rt breast 10 o'clock mass Intake Note: Patient is seen in office for ultrasound biopsy CONSULT right breast 10 o'clock mass. Pt c/o: denies any concerns regarding the breast, no prior surgeries, complications, no family hx or pregnacy Bx sched: 01/05/26 @ 9 am us/mm:12/08/24 Road Freight Brake Coupler Required: No Quilting Machine Operator: Quilting Machine Operator Present Accompanied by: Self / Same As Patient Allergies No Known Allergies Allergy (Verified 01/04/25 10:39) Medication List - Last Reconciled 01/04/25 by Mihir Decker MD alcohol swabs 1 pad topical QIDACHS blood sugar diagnostic (FreeStyle Lite Strips) Test four times a day or as directed. blood-glucose meter (FreeStyle Lite Meter kit) As Directed lancets (FreeStyle Lancets) Test four times a day or as directed. metformin 1,000 mg PO BID sitagliptin phosphate (Januvia) 100 mg PO DAILY HPI Comments Details: 59-year-old female patient presenting for evaluation of recent abnormal mammogram and ultrasound. She underwent screening mammogram on 10/13/2024 and subsequently underwent diagnostic imaging of the right breast with right breast ultrasound on 12/08/2024. This revealed a focal asymmetry in the upper outer quadrant with no associated calcifications. Ultrasound revealed a 5 x 8 x 4 mm solid density in the 10 o'clock position 5 cm from the nipple. This was felt to be suspicious for malignancy and biopsy recommended. She is scheduled for an ultrasound-guided core biopsy at the [facility] on 01/05/2025. She denies a previous history of breast problems or breast surgery. Her family history is negative for breast cancer. She has had no previous breast symptoms. She is , menarche was age 13 and menopause at 51. [facility] Medical History New onset type 2 diabetes mellitus Morbid obesity Social History Household Members: None Housing: House Patient Tobacco Use Status: Never used Tobacco service: No Current occupational status: employed Female Reproductive History Menstrual Age of Menarche: 13 Age of menopause: 51 Total pregnancies: 0 Review of Systems Const All systems reviewed & are unremarkable except as noted in HPI and below Physical Exam Vital Signs: Last Vital Signs Pulse 91 01/04/25 10:42 BP 136/62 01/04/25 10:42 BMI result Body Mass Index 44.9 Const General: cooperative and no acute distress Nutritional Appearance: well nourished Orientation/consciousness: patient oriented x3 Limitations: no limitations HEENT Head: Yes normocephalic and Yes atraumatic Ears: hearing grossly normal bilaterally Chest Other: Left breast: No skin change, no nipple retraction, no nipple discharge, no palpable mass, no enlarged lymph nodes. Right breast: No skin change, no nipple retraction, no nipple discharge, no palpable mass, no enlarged lymph nodes Resp Effort & Inspection: normal respiratory effort, no audible wheezes, no cough and no respiratory distress Cardio Jugular venous distension: no JVD GI Inspection: Yes normal to inspection Skin Other: Warm, dry, no rash Neuro General: patient oriented x3 Extrem General: Yes no clubbing, cyanosis or edema Assessment & Plan Assessment & Plan (1) Abnormal ultrasound of breast: Code(s): R92.8 - Other abnormal and inconclusive findings on diagnostic imaging of breast Category: Medical (2) Abnormal mammogram of right breast: Code(s): R92.8 - Other abnormal and inconclusive findings on diagnostic imaging of breast Category: Medical Plan 59-year-old female patient presenting with a recent mammogram and ultrasound which revealed a density in the right breast, 10 o'clock position 5 cm from the nipple no associated calcifications felt to be suspicious for malignancy. She is scheduled for an ultrasound-guided core biopsy at the [facility] on 01/05/2025. Examination today revealed no suspicious findings in either breast and no enlarged lymph nodes. I recommended a follow-up appointment in 1 week to review the pathology results and discuss treatment options as necessary. She expressed understanding and agrees with the plan. Orders: Orders US breast ndl core biopsy RT Today Mihir Decker MD R92.8 - Other abnormal and inconclusive findings on diagnostic imaging of breast Medications: Discontinued levofloxacin Discontinued Reason: Patient Completed Course 750 mg PO DAILY 7 tabs 0RF MIRIAM Coleman glipizide Discontinued Reason: Patient Completed Course 5 mg PO BIDWM 60 tabs 0RF MIRIAM Coleman Coding Level of Care Code New Pt Level 4 (03886) Diagnoses Abnormal ultrasound of breast R92.8 Abnormal mammogram of right breast R92.8
[2025-01-04 10:42] VITALS: BP 136/62; PULSE 91; BMI 44.9
--- OUTSIDE RECORDS SUMMARY | 2025-01-04 11:24 | XMS_ITS | Clinical Summary ---
Author Organization [facility] Facility Address [address] [place] [address] Care Team Providers Care Director Investment Banking Name Role Phone Vianca Martinez MD Primary Care Provider [phone]- [phone] Social History Tobacco Use Types Packs/Day Years Used Date Smoking Tobacco: Never Assessed Comments Unknown Sex and Gender Information Value Date Recorded Sex Assigned at Not on file Legal Sex Female 8:29 AM EDT Gender Identity Not on file Sexual Orientation Not on file Plan of Treatment Health Maintenance Due Date Last Done Comments Breast Cancer Screening 1966 Hepatitis B Vaccine (1 of 3 - 19+ 3-dose series) 1985 Colorectal Cancer Screening: Annual FOBT 2015 Colorectal Cancer Screening: Colonoscopy 2015 Colorectal Cancer Screening: Sigmoidoscopy 2015 Influenza Vaccine (#1) 2024 Pneumococcal Vaccine: Pediat rics (0 to 5 Years) and At-Risk Patients (6 to 64 Years) Aged Out No longer eligible b ased on patient's age to complete this topic Insurance ADMINISTRATIVE CONCEPTS ADMINISTRATIVE CONCEPTS Care Teams Director Investment Banking Relationship Specialty Start Date End Date Vianca Martinez MD [address] [place] [address] PCP - General Internal Medicine 08/05/22
== END 2025-01-04 10:55 | disposition home or self-care (01) ==
PROVIDERS: PCP Internal Medicine; Visit Provider Surgery
DX: R92.8 Other abnormal and inconclusive findings on diagnostic imaging of breast (principal)
CPT/HCPCS: 99204

== ENCOUNTER → 2025-01-04 10:24 | Outpatient (BNVA) | payer MEDICAID, SELFPAY | PROVIDERS: PCP Internal Medicine; Visit Provider Surgery | DX: R92.8 Other abnormal and inconclusive findings on diagnostic imaging of breast (principal) | CPT/HCPCS: 99202 ==

== ENCOUNTER 2025-01-05 08:44 | Outpatient (REF) | payer MEDICAID, SELFPAY ==
--- NOTE | ~2025-01-05 | MM_ITS ---
PROCEDURE: ULTRASOUND-GUIDED RIGHT BREAST BIOPSY CLINICAL INFORMATION: Right breast mass at 10:00. COMPARISON: Comparison is made with available prior examinations. TECHNIQUE: The details of the procedure, as well as the risks, benefits, and alternatives to the procedure were explained to the patient in detail and all of her questions were answered, after which, written informed consent was obtained. PROCEDURE: Prior to the procedure, sonography revealed solid mass at 10:00 in the right breast.. A time-out was performed, the lesion intended for biopsy was targeted and the skin of the right breast was then prepped and draped in the usual sterile fashion. Using sonographic guidance, sterile technique, and 1% lidocaine without epinephrine for local anesthesia, a total of 4 cores were obtained through the targeted area with a 14-gauge biopsy device. At the completion of tissue sampling, a single butterfly metallic clip was deposited at the biopsy site. An appropriate sample was obtained. The postprocedure 2-view direct digital mammogram reveals satisfactory positioning of the biopsy clip. The patient tolerated the procedure well and, after assuring adequate hemostasis, was discharged in good condition after reviewing postbiopsy breast care instructions. Final pathology results are pending. MM/MM tomosynthesis diagnostic RT IMPRESSION: 1. Uncomplicated sonographically-guided core biopsy of the right breast. The 2-view direct digital postprocedure mammogram reveals satisfactory positioning of the biopsy clip. 2. Final pathology results are pending. A separate report with final recommendations will be issued once these results are made available. Electronically signed by: Karmen Damon DO 01/05/2025 10:09 AM [facility]
--- OUTSIDE RECORDS SUMMARY | 2025-01-05 08:50 | XMS_ITS | Clinical Summary ---
Author Organization [facility] Facility Address [address] [place] [address] Care Team Providers Care Director Cloud Transformation Name Role Phone Vianca Martinez MD Primary Care Provider [phone]- [phone] Social History Tobacco Use Types Packs/Day Years [...] ADMINISTRATIVE CONCEPTS ADMINISTRATIVE CONCEPTS Care Teams Director Cloud Transformation Relationship Specialty Start Date End Date Vianca Martinez MD [address] [place] [address] PCP - General Internal Medicine 08/05/22
[2025-01-05] MEDS: Lidocaine HCl 1 % 20 ML VIAL 9 ML SUBCUT (09:42)
[2025-01-05] MEDS: Sodium Bicarbonate 8.4% 50 MEQ/50 ML VIAL SUBCUT (09:42)
== END 2025-01-05 08:45 | disposition home or self-care (01) ==
LOC: HO.MAMMO 08:44
PROVIDERS: PCP Internal Medicine; Visit Provider Surgery
DX: R92.8 Other abnormal and inconclusive findings on diagnostic imaging of breast (principal)
CPT/HCPCS: 19083; 77061; 77065; 88305; A4648; J2003

== ENCOUNTER → 2025-01-05 09:00 | Outpatient (BNV) | payer MEDICAID, SELFPAY | PROVIDERS: PCP Internal Medicine; Visit Provider Internal Medicine | DX: N63.11 Unspecified lump in the right breast, upper outer quadrant (principal) | CPT/HCPCS: 19083; 77065 ==

== ENCOUNTER 2025-01-13 10:08 | Outpatient (AMB) | payer MEDICAID, SELFPAY ==
--- NOTE | 2025-01-13 10:09 | MHC.OFFVIS ---
Vital Signs 01/13/25 10:16 Height 5 ft 7 in Weight 286 lb 9.615 oz BMI 44.9 BP 145/71 H Blood Pressure Location Rt brachial Position Sitting Pulse 102 H Intake Visit Reasons: US Biopsy, Rt breast 10 o'clock mass Intake Note: Patient is seen in office for ultrasound biopsy RESULTS, right breast 10 o'clock mass. Pt c/o: denies any concerns post bx, here for results Client Sales And Service Officer Required: No Accompanied by: Self / Same As Patient Allergies No Known Allergies Allergy (Verified 01/13/25 10:12) Medication List - Last Reconciled 01/13/25 by Mihir Decker MD alcohol swabs 1 pad topical QIDACHS blood sugar diagnostic (FreeStyle Lite Strips) Test four times a day or as directed. blood-glucose meter (FreeStyle Lite Meter kit) As Directed lancets (FreeStyle Lancets) Test four times a day or as directed. metformin 1,000 mg PO BID sitagliptin phosphate (Januvia) 100 mg PO DAILY HPI Comments Details: 59-year-old female patient returning 1 week following a right breast ultrasound-guided core biopsy performed at the [facility] on 01/05/2025. She was found to have a focal asymmetry in the upper outer quadrant with no associated calcification by mammogram. Subsequent ultrasound revealed a 5 x 8 x 4 mm solid density in the 10 o'clock position, 5 cm from the nipple. This was found to be suspicious for malignancy in biopsy recommended. She tolerated the biopsy well and denies any ongoing breast symptoms. Subsequent pathology revealed breast tissue with dense stromal fibrosis, consistent with sclerosed fibroadenoma; no atypia or malignancy identified. This was reviewed by Radiology and routine screening mammogram is recommended in 1 year. [facility] Medical History New onset type 2 diabetes mellitus Morbid obesity Social History Household Members: None Housing: House Patient Tobacco Use Status: Never used Tobacco service: No Current occupational status: employed Female Reproductive History Menstrual Age of Menarche: 13 Review of Systems Const All systems reviewed & are unremarkable except as noted in HPI and below Physical Exam Vital Signs: Last Vital Signs Pulse 102 H 01/13/25 10:16 BP 145/71 H 01/13/25 10:16 BMI result Body Mass Index 44.9 Const General: comfortable Nutritional Appearance: well nourished Orientation/consciousness: patient oriented x3 Chest Other: Exam deferred Resp Effort & Inspection: normal respiratory effort Skin Other: Warm and dry, no rashes Neuro General: patient oriented x3 Assessment & Plan Assessment & Plan (1) Abnormal ultrasound of breast: Code(s): R92.8 - Other abnormal and inconclusive findings on diagnostic imaging of breast Category: Medical (2) Abnormal mammogram of right breast: Code(s): R92.8 - Other abnormal and inconclusive findings on diagnostic imaging of breast Category: Medical Plan Patient returns following a right breast ultrasound-guided core biopsy at the 10:00 o'clock region. This revealed breast tissue with dense stromal fibrosis consistent with sclerosed fibroadenoma. No atypia or malignancy was identified. She tolerated the procedure well and denies any ongoing breast symptoms. Annual screening mammography is recommended. She should follow up as needed. Coding Level of Care Code Est Pt Level 3 (45831) Diagnoses Abnormal ultrasound of breast R92.8 Abnormal mammogram of right breast R92.8
[2025-01-13 10:16] VITALS: BP 145/71; PULSE 102; BMI 44.9
--- OUTSIDE RECORDS SUMMARY | 2025-01-13 11:41 | XMS_ITS | Clinical Summary ---
Author Organization [facility] Facility Address [address] [place] [address] Care Team Providers Care Industrial Cleaner Name Role Phone Vianca Martinez MD Primary Care Provider [phone]- [phone] Social History Tobacco Use Types Packs/Day Years [...] Insurance ADMINISTRATIVE CONCEPTS ADMINISTRATIVE CONCEPTS Care Teams Industrial Cleaner Relationship Specialty Start Date End Date Vianca Martinez MD [address] [place] [address] PCP - General Internal Medicine 08/05/22
== END 2025-01-13 10:42 | disposition home or self-care (01) ==
PROVIDERS: PCP Internal Medicine; Visit Provider Surgery
DX: R92.8 Other abnormal and inconclusive findings on diagnostic imaging of breast (principal)
CPT/HCPCS: 99213

== ENCOUNTER → 2025-01-13 10:08 | Outpatient (BNVA) | payer MEDICAID, SELFPAY | PROVIDERS: PCP Internal Medicine; Visit Provider Surgery | DX: R92.8 Other abnormal and inconclusive findings on diagnostic imaging of breast (principal) | CPT/HCPCS: 99212 ==

== ENCOUNTER 2025-02-25 07:46 | Outpatient (REF) | payer MEDICAID, SELFPAY ==
--- OUTSIDE RECORDS SUMMARY | 2025-02-25 07:49 | XMS_ITS | Clinical Summary ---
Author Organization [facility] Facility Address [address] [place] [address] Care Team Providers Care Tool Maker Apprentice Name Role Phone Vianca Martinez MD Primary Care Provider [phone]- [phone] Social History Tobacco Use Types Packs/Day Years [...] Colorectal Cancer Screening: Sigmoidoscopy 2015 Influenza Vaccine (Season Ended) 2025 Pneumococcal Vaccine: Peds ( 0 to 5 Years) and At-Risk Patients (6 to 49 Years) Aged Out No longer eligible b ased on patient's age to complete this topic Insurance Administrative Concepts Administrative Concepts Care Teams Tool Maker Apprentice Relationship Specialty Start Date End Date Vianca Martinez MD [address] [place] [address] PCP - General Internal Medicine 08/05/22
[2025-02-25 08:55] LABS: Estimated Average Glucose 171 mg/dL; Hemoglobin A1C 200.6912 umol/L; Hemoglobin A1c % 7.6 % (<6.0); Total Hemoglobin (HGBA1C) 3344.4705 umol/L
[2025-02-25 09:25] LABS: Alanine Aminotransferase 39 U/L (0-31); Albumin Level 4.2 g/dL (3.5-5.0); Alkaline Phosphatase 104 U/L (39-117); Anion Gap 12 (12-20); Aspartate Amino Transferase 26 U/L (5-31); Bilirubin Total 0.3 mg/dL (0.0-1.0); Blood Urea Nitrogen 28 mg/dL (9-16); Calcium 9.4 mg/dL (8.4-10.2); Carbon Dioxide 29 mmol/L (22-29); Chloride 106 mmol/L (96-108); Estimated Glomerular Filt Rate 51; Glucose Random 158 mg/dL (60-115); Potassium 4.3 mmol/L (3.3-5.1); Sodium 143 mmol/L (135-145); Total Protein 6.9 g/dL (6.5-8.0)
== END 2025-02-25 07:47 | disposition home or self-care (01) ==
LOC: HO.LAB 07:46
PROVIDERS: PCP Internal Medicine; Visit Provider Internal Medicine
DX: E11.9 Type 2 diabetes mellitus without complications (principal); E78.00 Pure hypercholesterolemia, unspecified; I10 Essential (primary) hypertension; R74.01 Elevation of levels of liver transaminase levels
CPT/HCPCS: 36415; 80053; 83036

== ENCOUNTER 2025-05-27 11:19 | Outpatient (REF) | payer MEDICAID, SELFPAY ==
--- OUTSIDE RECORDS SUMMARY | 2025-05-27 11:53 | XMS_ITS | Clinical Summary ---
Author Organization [facility] Facility Address [address] [place] [address] Care Team Providers Care Lithographic Press Operator Apprentice Name Role Phone Vianca Martinez MD Primary Care Provider [phone]- [phone] Social History Tobacco Use Types Packs/Day Years [...] (1 of 3 - 19+ 3-dose series) 02/14 Colorectal Cancer Screening: Annual FOBT 2015 Colorectal Cancer Screening: Colonoscopy 2015 Colorectal Cancer Screening: Sigmoidoscopy 2015 Pneumococcal Vaccine: 50+ Years (1 of 1 - PCV) 016 Influenza Vaccine (#1) 2025 Insurance Administrative Concepts Administrative Concepts Care Teams Lithographic Press Operator Apprentice Relationship Specialty Start Date End Date Vianca Martinez MD [address] [place] [address] PCP - General Internal Medicine 08/05/22
[2025-05-27 12:02] LABS: Hemoglobin A1C 174.7574 umol/L; Total Hemoglobin (HGBA1C) 3179.0918 umol/L
[2025-05-27 12:34] LABS: Alanine Aminotransferase 40 U/L (0-31); Albumin Level 4.0 g/dL (3.5-5.0); Alkaline Phosphatase 106 U/L (39-117); Anion Gap 11 (12-20); Aspartate Amino Transferase 28 U/L (5-31); Blood Urea Nitrogen 20 mg/dL (9-16); Calcium 9.1 mg/dL (8.4-10.2); Carbon Dioxide 28 mmol/L (22-29); Chloride 108 mmol/L (96-108); Estimated Glomerular Filt Rate 37; Potassium 4.3 mmol/L (3.3-5.1); Sodium 143 mmol/L (135-145); Total Protein 6.4 g/dL (6.5-8.0)
[2025-05-27 12:51] LABS: Thyroid Stimulating Hormone 3.82 uIU/mL (0.32-4.0)
== END 2025-05-27 11:20 | disposition home or self-care (01) ==
LOC: HO.LAB 11:19
PROVIDERS: PCP Internal Medicine; Visit Provider Internal Medicine
DX: E11.9 Type 2 diabetes mellitus without complications (principal); I10 Essential (primary) hypertension; I89.0 Lymphedema, not elsewhere classified; R63.5 Abnormal weight gain; R74.01 Elevation of levels of liver transaminase levels
CPT/HCPCS: 36415; 80053; 83036; 84443

== ENCOUNTER 2025-08-29 11:01 | Outpatient (REF) | payer MEDICAID, SELFPAY ==
--- OUTSIDE RECORDS SUMMARY | 2025-08-29 11:04 | XMS_ITS | Clinical Summary ---
Author Organization [facility] Facility Address [address] [place] [address] Care Team Providers Care Network Planner Name Role Phone Vianca Martinez MD Primary Care Provider [phone]- [phone] Social History Tobacco Use Types Packs/Day Years [...] Insurance Administrative Concepts Administrative Concepts Care Teams Network Planner Relationship Specialty Start Date End Date Vianca Martinez MD [address] [place] [address] PCP - General Internal Medicine 08/05/22
[2025-08-29 12:23] LABS: Alanine Aminotransferase 39 U/L (0-31); Albumin Level 4.2 g/dL (3.5-5.0); Alkaline Phosphatase 114 U/L (39-117); Anion Gap 12 (12-20); Aspartate Amino Transferase 31 U/L (5-31); Blood Urea Nitrogen 18 mg/dL (9-16); Calcium 9.5 mg/dL (8.4-10.2); Carbon Dioxide 29 mmol/L (22-29); Chloride 107 mmol/L (96-108); Cholesterol 135 mg/dL (<200); Estimated Glomerular Filt Rate 48; HDL Cholesterol 44 mg/dL (>40); Potassium 4.2 mmol/L (3.3-5.1); Sodium 144 mmol/L (135-145); Total Protein 6.7 g/dL (6.5-8.0); Triglycerides 105 mg/dL (<150)
[2025-08-29 12:40] LABS: Thyroid Stimulating Hormone 4.25 uIU/mL (0.32-4.0)
== END 2025-08-29 11:02 | disposition home or self-care (01) ==
LOC: HO.LAB 11:01
PROVIDERS: PCP Internal Medicine; Visit Provider Internal Medicine
DX: E11.22 Type 2 diabetes mellitus with diabetic chronic kidney disease (principal); N18.9 Chronic kidney disease, unspecified; E66.01 Morbid (severe) obesity due to excess calories; G47.33 Obstructive sleep apnea (adult) (pediatric); R74.01 Elevation of levels of liver transaminase levels
CPT/HCPCS: 36415; 80053; 80061; 82043; 82570; 83036; 84443